=== PATIENT | female | born 1995 | race Caucasian/White ===

== ENCOUNTER 2020-12-31 16:51 | Emergency (ER) | payer OTHER, SELFPAY ==
--- NOTE | ~2020-12-31 | CT_ITS ---
EXAMINATION: CT HEAD WITHOUT CONTRAST CLINICAL INFORMATION: Weakness. COMPARISON: None TECHNIQUE: Contiguous axial imaging was performed from the skull base to vertex without intravenous administration of contrast. Coronal and sagittal reformatted images are performed at CT scanner This CT examination was performed using dose optimization techniques as appropriate, variously including the following: *Automated exposure control *Adjustment of mA and/or kV according to patient size (this includes techniques or standardized protocols for targeted exams where dose is matched to indication/reason for exam; i.e. extremities or head) *Use of iterative reconstruction technique DLP: 605 mGy-cm FINDINGS: There is no evidence of acute intracranial hemorrhage or territorial infarction. No abnormal mass effect or midline shift is seen. [place] to white matter differentiation is well preserved. No extra-axial fluid collections are identified. The ventricles are normal in size. There is no abnormal attenuation within the brain parenchyma. The osseous structures and soft tissues are normal. The mastoid air cells and visualized portions of the paranasal sinuses are well aerated. CT/CT head/brain wo con IMPRESSION: No acute intracranial pathology.
[2020-12-31 18:48] VITALS: BP 108/69; PULSE 89; RESP 18; TEMP 37.3; O2SAT 98
[2020-12-31 18:50] LABS: MANUAL DIFF FLAG NO
[2020-12-31 18:51] LABS: Basophils Percent Auto 0.3 % (0-2); Eosinophils Absolute Auto 0.1 X10*3/uL (0.0-0.4); Eosinophils Percent Auto 1.4 % (0-4); Hematocrit 37.9 % (37-47); Hemoglobin 12.3 g/dl (12.0-16.0); Imm Gran Abs Auto 0.02 X10*3/uL (0.00-0.03); Imm Gran Pct Auto 0.2 % (0.0-0.4); Lymphocytes Absolute Auto 2.3 X10*3/uL (1.2-4.9); Lymphocytes Percent Auto 24.8 % (20-40); Mean Corpuscular HGB Conc 32.5 g/dl (31.0-35.0); Mean Corpuscular Hemoglobin 27.5 pg (27.0-33.0); Mean Corpuscular Volume 84.6 fL (80-98); Mean Platelet Volume 10.3 fL (9.4-12.3); Monocytes Absolute Auto 0.9 X10*3/uL (0.1-1.2); Monocytes Percent Auto 9.4 % (2-11); Neutrophils Percent Auto 63.9 % (45-73); Platelet Count 233 X10*3/uL (160-400); Red Blood Count 4.48 X10*6/uL (4.20-5.50); Red Cell Distribution Width 12.9 % (11.0-16.0); White Blood Count 9.3 X10*3/uL (4.8-10.8)
[2020-12-31 19:10] LABS: Alanine Aminotransferase 9 U/L (0-31); Albumin Level 4.4 g/dL (3.5-5.0); Alkaline Phosphatase 76 U/L (39-117); Anion Gap 11 (12-20); Aspartate Amino Transferase 15 U/L (5-31); Bilirubin Total 0.3 mg/dL (0.0-1.0); Blood Urea Nitrogen 12 mg/dL (9-16); Calcium 9.5 mg/dL (8.4-10.2); Carbon Dioxide 26 mmol/L (22-29); Chloride 108 mmol/L (96-108); Estimated Glomerular Filt Rate > 60; Glucose Random 75 mg/dL (60-115); Potassium 4.2 mmol/L (3.3-5.1); Sodium 141 mmol/L (135-145); Total Protein 7.2 g/dL (6.5-8.0)
[2020-12-31 20:19] VITALS: BP 104/74; PULSE 85; RESP 16; TEMP 36.7; O2SAT 97; BMI 30.1
[2020-12-31 20:44] LABS: Appearance Urine CLEAR; Color Urine YELLOW; Glucose Urine UA NEG (NEG); Leukocyte Esterase Urine NEG (NEG); Nitrite Urine NEG (NEG); Urine Blood NEG (NEG); Urine Ketones NEG (NEG); Urine Protein NEG (NEG-TRACE)
[2020-12-31 20:46] LABS: UPreg QC Valid YES; Urine Pregnancy NEGATIVE (NEGATIVE)
[2020-12-31 21:26] VITALS: BP 112/71; PULSE 81; RESP 16; TEMP 36.4; O2SAT 98
--- NOTE | 2020-12-31 21:29 | ED.WEAKNESS ---
HPI - Weakness General Chief complaint: Weakness Stated complaint: Weakness to right side/Double vision Time Seen by Provider: 12/31/20 21:27 Source: patient Mode of arrival: ambulatory Limitations: no limitations History of Present Illness HPI Narrative: 25-year-old female presents with weakness, states that she feels like she was hit by a truck. Reports that she was worked up at [facility] last night with negative results, and given of diagnosis of a viral illness. Patient presents for worsening weakness. MD Complaint: generalized weakness Onset (ago): day(s) (3) Duration: constant Location: generalized Severity: similar to previous episodes Severity scale (1-10): 7 Quality: tingling and aching Relieving factors: none Exacerbating factors: movement and exertion Associated symptoms: fever/chills Related Data Allergies Allergy/AdvReac Type Severity Reaction Status Date / Time No Known Allergies Allergy Verified 12/31/20 20:19 Review of Systems Review of Systems: Constitutional: No Fever, No Chills ENT/Mouth: No Ear Pain, No Hoarseness, No sore throat Eyes: No Eye Pain, No Swelling, No Redness, No Foreign Body Cardiovascular: No Chest Pain, No SOB Respiratory: No Cough, No Dyspnea Gastrointestinal: Positive Nausea, No Vomiting, No Diarrhea, No abdominal Pain Genitourinary: No Dysuria, No Hematuria Musculoskeletal: No joint pain, No Myalgias, No Joint Swelling Skin: No Skin lacerations, No rash Neuro: Positive Weakness, No Numbness, No Paresthesias, No Loss of Consciousness, No Dizziness, No Headache Psych: No Anxiety/Panic, No Depression Heme/Lymph: no easy bruising, no Lymphadenopathy Endocrine: No Polyuria, No Polydipsia Yes all other systems are reviewed and are negative [facility] Past Medical History Attestation statement: The following information was validated with the patient. Source: old records reviewed Medical History Asthma PFO (patent foramen ovale) Social History Social History Patient Tobacco Use Status: Former Tobacco user Smoked in Last 30 Days: Yes Use of substances other than those prescribed or required for medical reasons: No Advance Directives: No Advance Directives Information Provided: No Physical Exam Vital Signs: Vital Signs: Last Vital Signs Temp 97.5 F 12/31/20 21:26 Pulse 81 12/31/20 21:26 Resp 16 12/31/20 21:26 BP 112/71 12/31/20 21:26 Pulse Ox 98 12/31/20 21:26 Body Mass Index 30.1 Appearance: Alert. Oriented X3. No acute distress. Eyes: Pupils equal, round and reactive to light. Sclera nonicteric. ENT: Pharynx normal. Moist mucous membranes. Neck: Normal inspection. Neck supple. CVS: Normal heart rate and rhythm. Pulses normal. Respiratory: No respiratory distress. Breath sounds normal. Abdomen: Soft and nontender. Skin: Skin warm and dry. Normal skin color. Normal skin turgor. Extremities: No lower extremity edema. Strength 5/5 to all extremities. Gait well balanced well coordinated. Neuro: No motor deficit. No sensory deficit. Cranial nerves 2-12 intact. Course Course Course Narrative: 25-year-old female presents with multiple complaints. States that she had a full workup at an [facility] yesterday with negative findings. States that she feels worse, feels like she was hit by a truck in her weakness is increased. She states that she does not have any feeling of illness, and would like further investigation into her weakness. Detailed description regarding radiation exposure, patient is still insistent upon further testing. Lab values drawn while patient was in the emergency department waiting room. All are negative. Records obtained from [facility]. Lab values reviewed, all within normal limits. No acute findings documented in their workup. 10:[address] scan negative for acute findings. Discussed with patient, patient should follow-up with primary care provider for further workup. Patient verbalized understanding of and agrees plan of care discharge home. MDM - Weakness Differential Diagnosis Differential diagnosis: Likely UTI, anemia, hypoglycemia, rhabdomyolysis and dehydration Medical Records Attestation: I reviewed the patient's medical records. Lab Data Attestation: I reviewed the patient's lab results. Result diagrams: 12/31/20 18:45 12/31/20 18:45 Labs: Lab Results 12/31/20 12/31/20 12/31/20 Range/Units 18:45 18:45 20:31 WBC 9.3 (4.8-10.8) X10*3/uL RBC 4.48 (4.20-5.50) X10*6/uL Hgb 12.3 (12.0-16.0) g/dl Hct 37.9 (37-47) % MCV 84.6 (80-98) fL MCH 27.5 (27.0-33.0) pg MCHC 32.5 (31.0-35.0) g/dl RDW 12.9 (11.0-16.0) % Plt Count 233 (160-400) X10*3/uL MPV 10.3 (9.4-12.3) fL Immature Gran % (Auto) 0.2 (0.0-0.4) % Neut % (Auto) 63.9 (45-73) % Lymph % (Auto) 24.8 (20-40) % [place] % (Auto) 9.4 (2-11) % Eos % (Auto) 1.4 (0-4) % Baso % (Auto) 0.3 (0-2) % Lymph # (Auto) 2.3 (1.2-4.9) X10*3/uL [place] # (Auto) 0.9 (0.1-1.2) X10*3/uL Eos # (Auto) 0.1 (0.0-0.4) X10*3/uL Baso # (Auto) 0.0 (0.0-0.2) X10*3/uL Abs Immat Gran (auto) 0.02 (0.00-0.03) X10*3/uL Absolute Neuts (auto) 6.0 (2.0-8.3) X10*3/uL Absolute Nucleated RBC 0.000 (0.0-0.012) X10*3/uL Nucleated RBC % (auto) 0.0 (0.0-0.2) /100WBC Sodium 141 (135-145) mmol/L Potassium 4.2 (3.3-5.1) mmol/L Chloride 108 (96-108) mmol/L Carbon Dioxide 26 (22-29) mmol/L Anion Gap 11 L (12-20) BUN 12 (9-16) mg/dL Creatinine 0.78 (0.5-1.4) mg/dL Estim Creat Clear Calc TNP Estimated GFR > 60 Random Glucose 75 (60-115) mg/dL Calcium 9.5 (8.4-10.2) mg/dL Total Bilirubin 0.3 (0.0-1.0) mg/dL AST 15 (5-31) U/L ALT 9 (0-31) U/L Alkaline Phosphatase 76 (39-117) U/L Total Protein 7.2 (6.5-8.0) g/dL Albumin 4.4 (3.5-5.0) g/dL Urine Color Urine Appearance Urine pH (5.0-8.0) Ur Specific [place] (1.005-1.025) Urine Protein (NEG-TRACE) MG/DL Urine Glucose (UA) (NEG) MG/DL Urine Ketones (NEG) MG/DL Urine Blood (NEG) Urine Nitrite (NEG) Ur Leukocyte Esterase (NEG) Urine Test (NEGATIVE) COVID-19 (MARILYNN) Negative (Negative) COVID-19 Clin Com See Note 12/31/20 12/31/20 Range/Units 20:35 20:35 WBC (4.8-10.8) X10*3/uL RBC (4.20-5.50) X10*6/uL Hgb (12.0-16.0) g/dl Hct (37-47) % MCV (80-98) fL MCH (27.0-33.0) pg MCHC (31.0-35.0) g/dl RDW (11.0-16.0) % Plt Count (160-400) X10*3/uL MPV (9.4-12.3) fL Immature Gran % (Auto) (0.0-0.4) % Neut % (Auto) (45-73) % Lymph % (Auto) (20-40) % [place] % (Auto) (2-11) % Eos % (Auto) (0-4) % Baso % (Auto) (0-2) % Lymph # (Auto) (1.2-4.9) X10*3/uL [place] # (Auto) (0.1-1.2) X10*3/uL Eos # (Auto) (0.0-0.4) X10*3/uL Baso # (Auto) (0.0-0.2) X10*3/uL Abs Immat Gran (auto) (0.00-0.03) X10*3/uL Absolute Neuts (auto) (2.0-8.3) X10*3/uL Absolute Nucleated RBC (0.0-0.012) X10*3/uL Nucleated RBC % (auto) (0.0-0.2) /100WBC Sodium (135-145) mmol/L Potassium (3.3-5.1) mmol/L Chloride (96-108) mmol/L Carbon Dioxide (22-29) mmol/L Anion Gap (12-20) BUN (9-16) mg/dL Creatinine (0.5-1.4) mg/dL Estim Creat Clear Calc Estimated GFR Random Glucose (60-115) mg/dL Calcium (8.4-10.2) mg/dL Total Bilirubin (0.0-1.0) mg/dL AST (5-31) U/L ALT (0-31) U/L Alkaline Phosphatase (39-117) U/L Total Protein (6.5-8.0) g/dL Albumin (3.5-5.0) g/dL Urine Color YELLOW Urine Appearance CLEAR Urine pH 6.0 (5.0-8.0) Ur Specific [place] 1.010 (1.005-1.025) Urine Protein NEG (NEG-TRACE) MG/DL Urine Glucose (UA) NEG (NEG) MG/DL Urine Ketones NEG (NEG) MG/DL Urine Blood NEG (NEG) Urine Nitrite NEG (NEG) Ur Leukocyte Esterase NEG (NEG) Urine Test NEGATIVE (NEGATIVE) COVID-19 (MARILYNN) (Negative) COVID-19 Clin Com Imaging Data CT head: Attestation: I personally reviewed and interpreted this imaging study as follows: Radiologist's impression: DLP: 605 mGy-cm FINDINGS: There is no evidence of acute intracranial hemorrhage or territorial infarction. No abnormal mass effect or midline shift is seen. [place] to white matter differentiation is well preserved. No extra-axial fluid collections are identified. The ventricles are normal in size. There is no abnormal attenuation within the brain parenchyma. The osseous structures and soft tissues are normal. The mastoid air cells and visualized portions of the paranasal sinuses are well aerated. ? CT/CT head/brain wo con IMPRESSION: No acute intracranial pathology. Discharge Plan Discharge Clinical Impression: Weakness Patient Disposition: Home, Self-Care Instructions: Weakness (ED) Additional Instructions: You were evaluated for weakness. Lab values are all normal. Urinalysis is negative for acute findings. CT scan of head is negative for acute findings requiring emergent intervention. We could not find a reason for your weakness. Please follow-up with your primary care physician for further workup. You may consider following up with Neurology if symptoms persist. I referred you to Dr. Benites. Thank you for choosing this emergency department for evaluation. Please follow-up with primary care physician as needed. Return to the emergency department for any new, concerning, or worsening symptoms. Referrals: Kelli Benites MD [Physician] - 2 days (Weakness)
[2020-12-31 21:41] LABS: COVID-19 Test Negative (Negative)
== END 2020-12-31 23:06 | disposition home or self-care (01) ==
PROVIDERS: Emergency Provider Internal Medicine; PCP Internal Medicine
DX: R53.1 Weakness (principal); Z20.822 Contact with and (suspected) exposure to COVID-19
CPT/HCPCS: 36415; 70450; 80053; 81003; 81025; 85025; 87635; 99284

== ENCOUNTER 2021-06-22 16:50 | Emergency (ER) | payer OTHER, SELFPAY ==
--- NOTE | ~2021-06-22 | XR_ITS ---
EXAMINATION: XR CHEST CLINICAL INFORMATION: Chest pain COMPARISON: 02/12/2020 TECHNIQUE: Frontal view of the chest was obtained. FINDINGS: No significant abnormality is noted involving the heart, lungs, mediastinum, bony thorax or soft tissues. XR/XR chest 1V IMPRESSION: Unremarkable examination.
--- NOTE | 2021-06-22 17:04 | ECG_ITS ---
Test Reason : CHEST PAIN Blood Pressure : / mmHG Vent. Rate : 080 BPM Atrial Rate : 080 BPM P-R Int : 136 ms QRS Dur : 080 ms QT Int : 364 ms P-R-T Axes : 072 040 057 degrees QTc Int : 419 ms Normal sinus rhythm Normal ECG No previous ECGs available Referred By: Generic ED Physician Electronically Signed By:SEAN HAGAN MD
[2021-06-22 17:06] VITALS: BP 112/72; PULSE 83; RESP 15; TEMP 36.4; O2SAT 95
[2021-06-22 17:19] LABS: MANUAL DIFF FLAG NO
[2021-06-22 17:22] LABS: Basophils Percent Auto 0.3 % (0-2); Eosinophils Absolute Auto 0.1 X10*3/uL (0.0-0.4); Hematocrit 38.4 % (37.0-47.0); Hemoglobin 12.5 g/dl (12.0-16.0); Imm Gran Abs Auto 0.04 X10*3/uL (0.00-0.03); Imm Gran Pct Auto 0.7 % (0.0-0.4); Lymphocytes Absolute Auto 1.5 X10*3/uL (1.2-4.9); Lymphocytes Percent Auto 26.3 % (20-40); Mean Corpuscular HGB Conc 32.6 g/dl (31.0-35.0); Mean Corpuscular Hemoglobin 27.1 pg (27.0-33.0); Mean Corpuscular Volume 83.1 fL (80.0-98.0); Mean Platelet Volume 10.2 fL (9.4-12.3); Monocytes Absolute Auto 0.4 X10*3/uL (0.1-1.2); Monocytes Percent Auto 7.2 % (2-11); Neutrophils Absolute Auto 3.8 x10*3/uL (2.0-8.3); Neutrophils Percent Auto 64.5 % (45-73); Platelet Count 211 X10*3/uL (160-400); Red Blood Count 4.62 X10*6/uL (4.20-5.50); Red Cell Distribution Width 12.7 % (11.0-16.0); White Blood Count 5.9 X10*3/uL (4.8-10.8)
[2021-06-22 17:45] LABS: Anion Gap 13 (12-20); Blood Urea Nitrogen 10 mg/dL (9-16); Calcium 10.2 mg/dL (8.4-10.2); Carbon Dioxide 24 mmol/L (22-29); Chloride 106 mmol/L (96-108); Creatinine Clr Calc Pharmacy 115.7; Estimated Glomerular Filt Rate > 60; Glucose Random 96 mg/dL (60-115); Potassium 4.2 mmol/L (3.3-5.1); Sodium 139 mmol/L (135-145)
[2021-06-22 17:53] LABS: Troponin-I High Sensitivity < 3.5 ng/L (<3.5-17.0)
[2021-06-22 20:14] VITALS: BP 113/72; PULSE 88; RESP 17; TEMP 36.6; O2SAT 99
[2021-06-22 21:37] VITALS: BP 107/75; PULSE 90; RESP 17; TEMP 36.6; O2SAT 98
--- NOTE | 2021-06-22 23:15 | ED.CHESTPAIN ---
HPI - Chest Pain General Chief Complaint: Chest Pain Stated Complaint: chest and arm pain Time Seen by Provider: 06/22/21 23:15 Source: patient Mode of arrival: ambulatory Limitations: no limitations History of Present Illness MD complaint: chest pain Pertinent past history: other (chest pain and palpitations for a few months) Onset (ago): day(s) (2) Timing of current episode: episodic Prior episodes: Yes Onset: during rest and during exertion Pain location: substernal Pain radiation: neck Severity: moderate Quality: heaviness Relieving factors: nothing Exacerbating factors: nothing Context: other (similar episodes) Associated symptoms: palpitations Treatment prior to arrival: none and other (also noted bruise in L AC area following blood draw at [facility]) Related Data Allergies Allergy/AdvReac Type Severity Reaction Status Date / Time vancomycin Allergy Swelling Verified 06/22/21 17:09 Review of Systems Review of Systems: Constitutional : No Weight loss, No Fever, No Chills ENT/Mouth : No sore throat, No Rhinorrhea Eyes: No Eye Pain, No Swelling Cardiovascular : pos Chest Pain, no SOB, no Dyspnea on Exertion, No Orthopnea, No Edema, pos Palpitations Respiratory : No Cough, No Sputum Gastrointestinal : no Nausea, No Vomiting, No Diarrhea, No abdominal Pain, No Hematochezia, No Melena Genitourinary : No Dysuria, No Urinary Frequency Musculoskeletal : No joint pain, No Myalgias, No Joint Swelling Skin : No Skin Lesions, No rash Neuro : No Weakness, No Numbness, No Dizziness, No Headache Psych : No Anxiety/Panic, No Depression Heme/Lymph: No Bruising, No Lymphadenopathy Endocrine : No Polyuria, No Polydipsia All other systems reviewed and are negative [facility] Past Medical History Attestation statement: The following information was validated with the patient. Medical History Asthma PFO (patent foramen ovale) Social History Social History Patient Tobacco Use Status: Former Tobacco user Advance Directives: No Physical Exam Vital Signs: Vital Signs: Last Vital Signs Temp 98 F 06/22/21 21:37 Pulse 90 06/22/21 21:37 Resp 17 06/22/21 21:37 BP 107/75 06/22/21 21:37 Pulse Ox 98 04/07/22 21:37 BMI result Body Mass Index 30.0 Appearance: Alert. Oriented X3. No acute distress. Eyes: Pupils equal, round and reactive to light. ENT: Pharynx normal. Neck: Normal inspection. Neck supple. CVS: Normal heart rate and rhythm. Pulses normal. Respiratory: No respiratory distress. Breath sounds normal. Abdomen: Soft and nontender. bounding symmetric pulses femoral Skin: Skin warm and dry. Normal skin color. Normal skin turgor. Extremities: No lower extremity edema. No calf ttp LUE bruise noted superficial with small not in AC area - LUE is not swollen at all and there is no suggestion of clinical DVT Neuro: Oriented X 3. No motor deficit. No sensory deficit. MDM - Chest Pain MDM Narrative Medical decision making narrative: 25 yo female with hx of palpitations and bouts of chest pain in the past seen by cardiology - notes 2 days of chest pain on and off went to her neck, she is PERC negative, has no ACS risk factors - EKG and trop negative with 2 days of symptoms no recent viral syndrome, her femoral pusles are intact doubt dissection. At this time can be DC home to cardiology follow up doubt ACS, pericarditis/myocarditis. Lab Data Result diagrams: 06/22/21 17:13 06/22/21 17:13 Labs: Lab Results 06/22/21 06/22/21 06/22/21 Range/Units 17:13 17:13 17:13 WBC 5.9 (4.8-10.8) X10*3/uL RBC 4.62 (4.20-5.50) X10*6/uL Hgb 12.5 (12.0-16.0) g/dl Hct 38.4 (37.0-47.0) % MCV 83.1 (80.0-98.0) fL MCH 27.1 (27.0-33.0) pg MCHC 32.6 (31.0-35.0) g/dl RDW 12.7 (11.0-16.0) % Plt Count 211 (160-400) X10*3/uL MPV 10.2 (9.4-12.3) fL Immature Gran % (Auto) 0.7 H (0.0-0.4) % Neut % (Auto) 64.5 (45-73) % Lymph % (Auto) 26.3 (20-40) % [place] % (Auto) 7.2 (2-11) % Eos % (Auto) 1.0 (0-4) % Baso % (Auto) 0.3 (0-2) % Lymph # (Auto) 1.5 (1.2-4.9) X10*3/uL [place] # (Auto) 0.4 (0.1-1.2) X10*3/uL Eos # (Auto) 0.1 (0.0-0.4) X10*3/uL Baso # (Auto) 0.0 (0.0-0.2) X10*3/uL Abs Immat Gran (auto) 0.04 H (0.00-0.03) X10*3/uL Absolute Neuts (auto) 3.8 (2.0-8.3) x10*3/uL Absolute Nucleated RBC 0.000 (0.0-0.012) X10*3/uL Nucleated RBC % (auto) 0.0 (0.0-0.2) /100WBC Sodium 139 (135-145) mmol/L Potassium 4.2 (3.3-5.1) mmol/L Chloride 106 (96-108) mmol/L Carbon Dioxide 24 (22-29) mmol/L Anion Gap 13 (12-20) BUN 10 (9-16) mg/dL Creatinine 0.73 (0.5-1.4) mg/dL Estim Creat Clear Calc 115.7 Estimated GFR > 60 Random Glucose 96 (60-115) mg/dL Calcium 10.2 D (8.4-10.2) mg/dL Troponin I High Sens < 3.5 (<3.5-17.0) ng/L ECG Data ECG #1: Attestation: I personally reviewed and interpreted this ECG as follows: ECG interpretation date: 06/22/21 ECG interpretation time: 23:20 Interpretation: Rate: 80 Rhythm: NSR [place]: normal Normal P waves. Normal WILI. Normal QRS complex. ST T wave : normal no VICTORINO qTC: normal prior studies: no acute ischemia The study has been interpreted contemporaneously by me. . 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
[2021-06-22 23:55] LABS: UPreg QC Valid YES; Urine Pregnancy NEGATIVE (NEGATIVE)
[2021-06-23] MEDS: Acetaminophen 325 MG TABLET 650 MG PO (00:16)
== END 2021-06-23 00:18 | disposition home or self-care (01) ==
PROVIDERS: Emergency Provider Emergency Medicine
DX: R07.9 Chest pain, unspecified (principal)
CPT/HCPCS: 36415; 71045; 80048; 81025; 84484; 85025; 93005; 99284

== ENCOUNTER 2021-07-12 12:04 | Outpatient (REF) | payer OTHER, SELFPAY ==
[2021-07-12 14:40] LABS: Erythrocyte Sedimentation Rate 10 MM/HR (0-20)
[2021-07-12 16:31] LABS: Syphilis Screen Nonreactive (Nonreactive)
[2021-07-14 00:51] LABS: Lyme Abs Screen <0.90 index
[2021-07-14 13:26] LABS: Anti Nuclear Antibody Screen NEGATIVE (NEGATIVE)
== END 2021-07-12 12:05 | disposition home or self-care (01) ==
LOC: HO.LAB 12:04
PROVIDERS: Visit Provider Psychiatry & Neurology Neurology
DX: G93.40 Encephalopathy, unspecified (principal)
CPT/HCPCS: 36415; 85652; 86038; 86039; 86617; 86618; 86780

== ENCOUNTER 2021-07-19 16:06 | Outpatient (REF) | payer OTHER, SELFPAY ==
--- NOTE | ~2021-07-19 | MR_ITS ---
MR BRAIN WITHOUT AND WITH CONTRAST CLINICAL INFORMATION: Encephalopathy COMPARISON: Head CT 01/01/2020 TECHNIQUE: Multiplanar, multisequence MRI of the brain was obtained before and after the intravenous administration of 8 mL Gadavist. FINDINGS: There is no pathologic intracranial enhancement. No parenchymal signal abnormality. There is no hydrocephalus, extra-axial surface collection, or herniation. The major flow voids at the skull base are preserved. There is no acute infarct on diffusion-weighted imaging. There is no intracranial hemorrhage on the gradient recalled echo acquisition. The midline structures are normal. The cerebellar tonsils are normally positioned. The cerebellum and brainstem are normal. The craniocervical junction is normal. Osseous marrow signal intensity is homogenous. The visualized soft tissues are unremarkable. MR/MR head/brain wo/w con IMPRESSION: Unremarkable MRI of the brain.
== END 2021-07-19 16:07 | disposition home or self-care (01) ==
LOC: HO.MRI 16:06
PROVIDERS: Visit Provider Psychiatry & Neurology Neurology
DX: G93.40 Encephalopathy, unspecified (principal)
CPT/HCPCS: 70553; A9585

== ENCOUNTER 2021-07-22 16:53 | Emergency (ER) | payer OTHER, SELFPAY ==
--- NOTE | 2021-07-22 | ECG_ITS ---
Test Reason : CHEST PAIN Blood Pressure : / mmHG Vent. Rate : 081 BPM Atrial Rate : 081 BPM P-R Int : 140 ms QRS Dur : 082 ms QT Int : 374 ms P-R-T Axes : 064 040 057 degrees QTc Int : 434 ms Normal sinus rhythm Normal ECG When compared with ECG of 22-JUN-2021 16:59, No significant change was found Referred By: Erinn Escobar Electronically Signed By:Jared Whitt
--- NOTE | ~2021-07-22 | XR_ITS ---
EXAMINATION: XR CHEST CLINICAL INFORMATION: Chest pain COMPARISON: None TECHNIQUE: Frontal view of the chest was obtained. FINDINGS: No significant abnormality is noted involving the heart, lungs, mediastinum, bony thorax or soft tissues. XR/XR chest 1V IMPRESSION: Unremarkable examination.
[2021-07-22 17:12] VITALS: BP 116/79; PULSE 81; RESP 18; TEMP 36.9; O2SAT 100; BMI 28.8
[2021-07-22 17:33] LABS: MANUAL DIFF FLAG NO
[2021-07-22 17:35] LABS: Appearance Urine CLEAR; Color Urine YELLOW; Glucose Urine UA NEG (NEG); Leukocyte Esterase Urine NEG (NEG); Nitrite Urine NEG (NEG); Specific Gravity - Urine 1.025 (1.005-1.025); Urine Blood NEG (NEG); Urine Ketones 15 MG/DL (NEG); Urine Protein NEG (NEG-TRACE)
[2021-07-22 17:40] LABS: UPreg QC Valid YES; Urine Pregnancy NEGATIVE (NEGATIVE)
[2021-07-22 17:45] LABS: Basophils Percent Auto 0.3 % (0-2); Eosinophils Absolute Auto 0.1 X10*3/uL (0.0-0.4); Eosinophils Percent Auto 0.8 % (0-4); Hematocrit 37.6 % (37.0-47.0); Hemoglobin 12.2 g/dl (12.0-16.0); Imm Gran Abs Auto 0.01 X10*3/uL (0.00-0.03); Imm Gran Pct Auto 0.2 % (0.0-0.4); Lymphocytes Absolute Auto 1.7 X10*3/uL (1.2-4.9); Lymphocytes Percent Auto 27.9 % (20-40); Mean Corpuscular HGB Conc 32.4 g/dl (31.0-35.0); Mean Corpuscular Volume 83.2 fL (80.0-98.0); Mean Platelet Volume 10.2 fL (9.4-12.3); Monocytes Absolute Auto 0.4 X10*3/uL (0.1-1.2); Monocytes Percent Auto 7.1 % (2-11); Neutrophils Percent Auto 63.7 % (45-73); Platelet Count 240 X10*3/uL (160-400); Red Blood Count 4.52 X10*6/uL (4.20-5.50); Red Cell Distribution Width 13.2 % (11.0-16.0); White Blood Count 6.2 X10*3/uL (4.8-10.8)
[2021-07-22 17:49] LABS: Anion Gap 13 (12-20); Blood Urea Nitrogen 8 mg/dL (9-16); Calcium 9.8 mg/dL (8.4-10.2); Carbon Dioxide 22 mmol/L (22-29); Chloride 108 mmol/L (96-108); Estimated Glomerular Filt Rate > 60; Glucose Random 94 mg/dL (60-115); Potassium 4.2 mmol/L (3.3-5.1); Sodium 139 mmol/L (135-145)
[2021-07-22 17:55] LABS: Troponin-I High Sensitivity < 3.5 ng/L (<3.5-17.0)
--- NOTE | 2021-07-22 20:58 | ED.CHESTPAIN ---
HPI - Chest Pain General Chief Complaint: Chest Pain Stated Complaint: chest pain Time Seen by Provider: 07/22/21 20:58 Source: patient Mode of arrival: ambulatory Limitations: no limitations History of Present Illness HPI narrative: Patient history of palpitation off and on follow-up with executive relations specialist plan to have loop monitor and echo for possible POTS. Comes here as while monitoring her heart rate at home at home device which dad as AFib with ventricular rate of 96 beats per minute on closer evaluation that was an error in lot of baseline abnormalities and is a sinus rhythm also patient had multiple complaints facial numbness when the systolic blood pressure goes higher than 115 and has palpitation with heart rate less than 100 and chest pain Related Data Allergies Allergy/AdvReac Type Severity Reaction Status Date / Time vancomycin Allergy Swelling Verified 07/22/21 17:12 Review of Systems Review of Systems: Yes all other systems are reviewed and are negative [facility] Past Medical History Medical History Asthma PFO (patent foramen ovale) Social History Social History Patient Tobacco Use Status: Former Tobacco user Advance Directives: No Advance Directives Information Provided: No Patient : No Physical Exam Vital Signs: Vital Signs: Last Vital Signs Temp 98.4 F 07/22/21 17:12 Pulse 94 07/22/21 21:18 Resp 14 07/22/21 21:11 BP 112/82 07/22/21 21:18 Pulse Ox 98 07/22/21 21:11 BMI result Body Mass Index 28.8 Appearance: Alert. Oriented X3. No acute distress. Eyes: PERRLA, ENT: Pharynx normal. Oral Mucosa moist Neck: Normal inspection. Neck supple. CVS: Normal heart rate and rhythm. Pulses normal. Respiratory: No respiratory distress. Equal air entry bilateral, no wheezing/rales/rhonchi Abdomen: Soft and nontender. Bowel sounds are present, Skin: Skin warm and dry. Normal skin color. Normal skin turgor. Extremities: No lower extremity edema. No calf tenderness Neuro: Oriented X 3. No motor deficit. No sensory deficit.No cerebellar signs , cranial nerves II-XII intact MDM - Chest Pain MDM Narrative Medical decision making narrative: During stay in the ER patient had normal sinus rhythm no arrhythmias noticed patient has history of POTS possible on metoprolol advised to follow with executive relations specialist patient scheduled for echo and loop monitoring next month Lab Data Attestation: I reviewed the patient's lab results. Result diagrams: 07/22/21 17:29 07/22/21 17:29 Labs: Lab Results 07/22/21 07/22/21 07/22/21 Range/Units 17:29 17:29 17:29 WBC 6.2 (4.8-10.8) X10*3/uL RBC 4.52 (4.20-5.50) X10*6/uL Hgb 12.2 (12.0-16.0) g/dl Hct 37.6 (37.0-47.0) % MCV 83.2 (80.0-98.0) fL MCH 27.0 (27.0-33.0) pg MCHC 32.4 (31.0-35.0) g/dl RDW 13.2 (11.0-16.0) % Plt Count 240 (160-400) X10*3/uL MPV 10.2 (9.4-12.3) fL Immature Gran % (Auto) 0.2 (0.0-0.4) % Neut % (Auto) 63.7 (45-73) % Lymph % (Auto) 27.9 (20-40) % [place] % (Auto) 7.1 (2-11) % Eos % (Auto) 0.8 (0-4) % Baso % (Auto) 0.3 (0-2) % Lymph # (Auto) 1.7 (1.2-4.9) X10*3/uL [place] # (Auto) 0.4 (0.1-1.2) X10*3/uL Eos # (Auto) 0.1 (0.0-0.4) X10*3/uL Baso # (Auto) 0.0 (0.0-0.2) X10*3/uL Abs Immat Gran (auto) 0.01 (0.00-0.03) X10*3/uL Absolute Neuts (auto) 4.0 (2.0-8.3) x10*3/uL Absolute Nucleated RBC 0.000 (0.0-0.012) X10*3/uL Nucleated RBC % (auto) 0.0 (0.0-0.2) /100WBC Sodium 139 (135-145) mmol/L Potassium 4.2 (3.3-5.1) mmol/L Chloride 108 (96-108) mmol/L Carbon Dioxide 22 (22-29) mmol/L Anion Gap 13 (12-20) BUN 8 L (9-16) mg/dL Creatinine 0.82 (0.5-1.4) mg/dL Estim Creat Clear Calc 101.0 Estimated GFR > 60 Random Glucose 94 (60-115) mg/dL Calcium 9.8 (8.4-10.2) mg/dL Troponin I High Sens < 3.5 (<3.5-17.0) ng/L Urine Color Urine Appearance Urine pH (5.0-8.0) Ur Specific [place] (1.005-1.025) Urine Protein (NEG-TRACE) MG/DL Urine Glucose (UA) (NEG) MG/DL Urine Ketones (NEG) MG/DL Urine Blood (NEG) Urine Nitrite (NEG) Ur Leukocyte Esterase (NEG) Urine Test (NEGATIVE) 07/22/21 07/22/21 Range/Units 17:29 17:29 WBC (4.8-10.8) X10*3/uL RBC (4.20-5.50) X10*6/uL Hgb (12.0-16.0) g/dl Hct (37.0-47.0) % MCV (80.0-98.0) fL MCH (27.0-33.0) pg MCHC (31.0-35.0) g/dl RDW (11.0-16.0) % Plt Count (160-400) X10*3/uL MPV (9.4-12.3) fL Immature Gran % (Auto) (0.0-0.4) % Neut % (Auto) (45-73) % Lymph % (Auto) (20-40) % [place] % (Auto) (2-11) % Eos % (Auto) (0-4) % Baso % (Auto) (0-2) % Lymph # (Auto) (1.2-4.9) X10*3/uL [place] # (Auto) (0.1-1.2) X10*3/uL Eos # (Auto) (0.0-0.4) X10*3/uL Baso # (Auto) (0.0-0.2) X10*3/uL Abs Immat Gran (auto) (0.00-0.03) X10*3/uL Absolute Neuts (auto) (2.0-8.3) x10*3/uL Absolute Nucleated RBC (0.0-0.012) X10*3/uL Nucleated RBC % (auto) (0.0-0.2) /100WBC Sodium (135-145) mmol/L Potassium (3.3-5.1) mmol/L Chloride (96-108) mmol/L Carbon Dioxide (22-29) mmol/L Anion Gap (12-20) BUN (9-16) mg/dL Creatinine (0.5-1.4) mg/dL Estim Creat Clear Calc Estimated GFR Random Glucose (60-115) mg/dL Calcium (8.4-10.2) mg/dL Troponin I High Sens (<3.5-17.0) ng/L Urine Color YELLOW Urine Appearance CLEAR Urine pH 6.0 (5.0-8.0) Ur Specific [place] 1.025 (1.005-1.025) Urine Protein NEG (NEG-TRACE) MG/DL Urine Glucose (UA) NEG (NEG) MG/DL Urine Ketones 15 (NEG) MG/DL Urine Blood NEG (NEG) Urine Nitrite NEG (NEG) Ur Leukocyte Esterase NEG (NEG) Urine Test NEGATIVE (NEGATIVE) Discharge Plan Discharge Clinical Impression: Heart palpitations Patient Disposition: Home, Self-Care Instructions: Heart Palpitations (ED) Additional Instructions: Follow up with executive relations specialist as advised At this time you do not have any atrial fibrillation continue to take metoprolol as prescribe Interventions: ED Discharge Assessment Last Done: 07/22/21 21:46 Discharge Date/Time: 07/22/21 21:48
[2021-07-22 21:11] VITALS: BP 122/86; PULSE 79; RESP 14; O2SAT 98
[2021-07-22 21:16] VITALS: BP 114/76; PULSE 75
[2021-07-22 21:17] VITALS: BP 123/82; PULSE 83
[2021-07-22 21:18] VITALS: BP 112/82; PULSE 94
== END 2021-07-22 21:48 | disposition home or self-care (01) ==
PROVIDERS: Emergency Medicine Emergency Medical Services; Emergency Provider Internal Medicine
DX: R07.89 Other chest pain (principal); R00.2 Palpitations; Z87.891 Personal history of nicotine dependence; Z79.899 Other long term (current) drug therapy
CPT/HCPCS: 36415; 71045; 80048; 81003; 81025; 84484; 85025; 93005; 99284

== ENCOUNTER 2021-08-01 10:08 | Emergency (ER) | payer OTHER, SELFPAY ==
--- NOTE | 2021-08-01 | ECG_ITS ---
Test Reason : cp Blood Pressure : / mmHG Vent. Rate : 088 BPM Atrial Rate : 088 BPM P-R Int : 142 ms QRS Dur : 078 ms QT Int : 352 ms P-R-T Axes : 064 042 048 degrees QTc Int : 425 ms Normal sinus rhythm Normal ECG When compared with ECG of 22-JUL-2021 17:02, No significant change was found Referred By: Generic ED Physician Electronically Signed By:PINA LAWRENCE
--- NOTE | ~2021-08-01 | US_ITS ---
EXAMINATION: US VENOUS WITH DOPPLER UPPER EXTREMITY, LEFT CLINICAL INFORMATION: Pain and swelling COMPARISON: None TECHNIQUE: Ultrasound of the upper extremity is performed using compression sonography and color and pulse Doppler flow with assessment of augmentation of flow. There is also imaging and Doppler assessment of the jugular and subclavian veins. Spectral analysis with color-flow imaging is performed. FINDINGS: The left internal jugular, subclavian, axillary, brachial, basilic veins are patent. The left cephalic vein is not compressible. No color flow could be documented in the left cephalic vein. This may be due to small size. US/US venous duplex UE LT IMPRESSION: No DVT demonstrated in the left upper arm.
[2021-08-01 10:51] VITALS: BP 123/49; PULSE 100; RESP 18; TEMP 36.6; O2SAT 100; BMI 30.1
--- NOTE | 2021-08-01 12:40 | ED.EXTPRO ---
HPI - Extremity Problem General Chief complaint: Extremity Problem Stated complaint: l arm numbness quest of dvt Time Seen by Provider: 08/01/21 12:15 Source: patient Mode of arrival: ambulatory Limitations: no limitations History of Present Illness HPI Narrative: 25-year-old female who presents emergency department for evaluation of left arm pain, weakness, numbness and swelling. The patient states that she has a constant pain in her left arm from her shoulder down to her fingers, the pain is a throbbing/dull ache which waxes and wanes in intensity. The pain is 8/10 at its worst. She states that she has been feeling weakness and heaviness in her left arm for approximately 3-4 days. She also feels like her left arm is swollen compared to the right. She does have a tingling sensation in her fingers of the left hand which is intermittent. Patient also noted a small ?bump ?in her left biceps area. She states she has been taking Tylenol and ibuprofen with some relief of the pain but the pain still persists. She states that she does have chest tightness and she points to the center of her chest. This is intermittent and she has had this pain before in the past. She does feel short of breath and has dyspnea on exertion. She denied fever, chills, rhinorrhea, sore throat, cough. She does not take control pills. The patient is concerned that she might have a blood clot in her left upper extremity. She states she has a PFO which also concerns her. Patient was seen in the emergency department recently on 07/22/2021 for palpitations and on 06/22/2021 her chest pain palpitations. The patient does see picker and is being worked up for POTS syndrome and for palpitations. MD Complaint: extremity pain Onset (ago): week(s) (1) Pain Consistency: constant (Waxes and wanes in intensity) Location: left Severity scale (1-10): 8 Quality: dull (From) Radiation: other (From her left shoulder to her finger tips) Relieving factors: nothing Exacerbating factors: nothing Associated symptoms: chest pain and shortness of breath Related Data Allergies Allergy/AdvReac Type Severity Reaction Status Date / Time vancomycin Allergy Swelling Verified 08/01/21 10:51 Review of Systems Review of Systems: Yes all other systems are reviewed and are negative [facility] Past Medical History [facility] Narrative: Past medical history: Palpitations, sepsis secondary to kidney infection, IBS, PFO, asthma. Past surgical history: None. Social history: The patient is a former smoker, she quit 3 years prior. She smoked less than half pack of cigarettes per day x7 years. She denies alcohol and drug use. Medical History Asthma PFO (patent foramen ovale) Social History Social History Patient Tobacco Use Status: Former Tobacco user Use of substances other than those prescribed or required for medical reasons: No Advance Directives: No Advance Directives Information Provided: No Physical Exam Vital Signs: Vital Signs: Last Vital Signs Temp 97.9 F 08/01/21 10:51 Pulse 77 08/01/21 12:43 Resp 18 08/01/21 12:43 BP 102/47 L 08/01/21 12:43 Pulse Ox 100 08/01/21 12:43 BMI result Body Mass Index 30.1 Const: General: cooperative and no acute distress Orientation/consciousness: oriented to person and oriented to place Limitations: no limitations HEENT: Head: Yes normal to inspection, Yes normocephalic and Yes atraumatic Ears: external ears normal General nose exam: Normal external nose present Face and sinus: Yes normal facial exam Mouth: Normal oral and palatal mucosa present Throat: Yes posterior oropharynx normal Eyes: General: appearance normal, both eyes and all related structures Pupils: Equal, round and reactive pupils present Neck: Neck: Yes normal visual inspection, Yes no lymphadenopathy, Yes trachea midline and Yes supple Chest: Chest palpation & inspection: normal inspection of the chest and normal palpation of entire chest wall Resp: Effort & Inspection: normal respiratory effort and able to speak in complete sentences Auscultation: clear to auscultation bilaterally Cardio: Rate: regular rate Rhythm: regular rhythm Heart sounds: S1 normal heart sound present, S2 normal heart sound present and no murmurs GI: Inspection: Yes normal to inspection Palpation (GI): Soft to palpation, nontender and no guarding Auscultation: normal bowel sounds : General: Yes no CVA tenderness Back/Spine/Pelvis: Back: no CVA tenderness Skin: General skin exam: no rashes or lesions noted Neuro: General: oriented to person and oriented to place Cranial nerves: Yes CN's II-XII intact bilaterally and Yes Equal, round and reactive pupils present Cognition (Neuro): normal cognition Motor exam (neuro): 5/5 motor strength present throughout Extrem: Other: The patient does have a pea size hard mass palpable in her mood bicep which I believe is a calcified lymph node, her extremities are neurovascular intact, no asymmetry on inspection of the left upper extremity versus the right. Psych: Appearance: grossly normal Speech and movement: Normal speech and movement present Affect: normal affect Attitude: cooperative Thought process: Normal thought process present Thought content: Normal thought content present Course Course Course Narrative: 25-year-old female who presents emergency department for evaluation of left upper extremity pain, swelling, heaviness x1 week. Patient's vital signs did reveal slight elevation a pulse of 100 otherwise were unremarkable. The patient does have a hard, pea-sized mass in her mid biceps which I believe is calcified lymph node. The patient has no significant risk factors for DVT however I am concerned that she may have a DVT of her left upper extremity therefore a duplex ultrasound was ordered. 1435: Duplex ultrasound of the left upper extremity was negative for DVT. I did discuss this finding with the patient. I also discussed the possibility of false negatives and clot propagation. Patient was advised to continue to take Tylenol and ibuprofen for pain. I told her her symptoms get worse over do not completely resolve over the next 4-7 days she should return to the emergency department for repeat ultrasound. I also told important follow-up with PCP for re-evaluation as well. Discharge Plan Discharge Clinical Impression: Arm pain, left Patient Disposition: Home, Self-Care Additional Instructions: At this time, I do not have a clear cause for your pain, I suspect that it is related to your muscles and not a blood clot. The duplex ultrasound of your left upper extremity was normal. The radiologist did not see any blood clot at this time to explain your symptoms which I think is very reassuring Sometimes, an ultrasound may be falsely negative and can miss a very small blood clot, therefore if your symptoms get worse over the next 4-7 days or your not better and your arm is more swollen, than you should return to the emergency department for repeat ultrasound. Take ibuprofen 200 mg pills, 3 pills every 6 hours as needed for pain. Take Tylenol (acetaminophen) 500 mg pills, 2 pills every 4 to 6 hours as needed for pain. Follow-up with your doctor in 2 days. Please return to the emergency department if your symptoms get worse or if you develop any symptoms that are concerning to you.
[2021-08-01 12:43] VITALS: BP 102/47; PULSE 77; RESP 18; O2SAT 100
--- NOTE | 2021-08-01 12:44 | PC.NURSE ---
pt is alert and oriented, skin pwd, respirations even and unlabored, pt reports noticing a small bump on her left upper arm, bump is tender and makes her entire arm tingle, pain at 4/10 is concern of a blood clot
== END 2021-08-01 15:42 | disposition home or self-care (01) ==
PROVIDERS: Emergency Provider Emergency Medicine Emergency Medical Services
DX: R07.89 Other chest pain (principal); R60.0 Localized edema; M79.602 Pain in left arm; R00.2 Palpitations; Z87.891 Personal history of nicotine dependence
CPT/HCPCS: 93005; 93971; 99284

== ENCOUNTER 2021-08-16 17:31 | Emergency (ER) | payer OTHER, SELFPAY ==
--- NOTE | ~2021-08-16 | XR_ITS ---
EXAMINATION: XR CHEST CLINICAL INFORMATION: Cough COMPARISON: None TECHNIQUE: Frontal view of the chest was obtained. FINDINGS: No significant abnormality is noted involving the heart, lungs, mediastinum, bony thorax or soft tissues. XR/XR chest 1V IMPRESSION: Unremarkable examination.
--- NOTE | 2021-08-16 17:34 | ECG_ITS ---
Test Reason : CP Blood Pressure : / mmHG Vent. Rate : 084 BPM Atrial Rate : 084 BPM P-R Int : 136 ms QRS Dur : 084 ms QT Int : 360 ms P-R-T Axes : 066 048 047 degrees QTc Int : 425 ms Normal sinus rhythm Normal ECG When compared with ECG of 01-AUG-2021 10:53, No significant change was found Referred By: Generic ED Physician Electronically Signed By:SEAN HAGAN MD
[2021-08-16 17:37] VITALS: BP 115/64; PULSE 88; RESP 18; TEMP 36.9; O2SAT 98; BMI 32.0
--- NOTE | 2021-08-16 20:11 | PC.NURSE ---
pt alert and oriented in no distress, c/o cp foe a few days described as stabbing, squeezing, increased with movement, radiating to back and jaw. c/o nausea no sob or diaphoresis
[2021-08-16 20:15] VITALS: BP 110/73; PULSE 79; PULSE 81; RESP 17; O2SAT 100
[2021-08-16 20:57] LABS: MANUAL DIFF FLAG NO
[2021-08-16 20:58] LABS: Basophils Percent Auto 0.3 % (0-2); Eosinophils Absolute Auto 0.1 X10*3/uL (0.0-0.4); Eosinophils Percent Auto 1.4 % (0-4); Hematocrit 35.5 % (37.0-47.0); Hemoglobin 11.5 g/dl (12.0-16.0); Imm Gran Abs Auto 0.01 X10*3/uL (0.00-0.03); Imm Gran Pct Auto 0.2 % (0.0-0.4); Lymphocytes Absolute Auto 1.9 X10*3/uL (1.2-4.9); Lymphocytes Percent Auto 29.5 % (20-40); Mean Corpuscular HGB Conc 32.4 g/dl (31.0-35.0); Mean Corpuscular Hemoglobin 26.9 pg (27.0-33.0); Mean Corpuscular Volume 83.1 fL (80.0-98.0); Monocytes Absolute Auto 0.5 X10*3/uL (0.1-1.2); Monocytes Percent Auto 7.2 % (2-11); Neutrophils Percent Auto 61.4 % (45-73); Platelet Count 250 X10*3/uL (160-400); Red Blood Count 4.27 X10*6/uL (4.20-5.50); Red Cell Distribution Width 13.6 % (11.0-16.0); White Blood Count 6.6 X10*3/uL (4.8-10.8)
[2021-08-16 21:03] LABS: COVID-19 Test Negative (Negative); IDNOW Serial# 16C4AD1C; Influenza A Negative (Negative); Influenza B2 Negative (Negative)
[2021-08-16 21:17] LABS: Troponin-I High Sensitivity < 3.5 ng/L (<3.5-17.0)
[2021-08-16 21:19] LABS: Alanine Aminotransferase 9 U/L (0-31); Albumin Level 4.2 g/dL (3.5-5.0); Alkaline Phosphatase 64 U/L (39-117); Anion Gap 13 (12-20); Aspartate Amino Transferase 12 U/L (5-31); Bilirubin Total 0.3 mg/dL (0.0-1.0); Blood Urea Nitrogen 8 mg/dL (9-16); Calcium 9.6 mg/dL (8.4-10.2); Carbon Dioxide 23 mmol/L (22-29); Chloride 108 mmol/L (96-108); Creatinine Clr Calc Pharmacy 121.1; Estimated Glomerular Filt Rate > 60; Glucose Random 90 mg/dL (60-115); Sodium 140 mmol/L (135-145); Total Protein 7.2 g/dL (6.5-8.0)
[2021-08-16 21:19] LABS: Appearance Urine CLEAR; Color Urine YELLOW; Glucose Urine UA NEG (NEG); Leukocyte Esterase Urine 1+ (NEG); Nitrite Urine NEG (NEG); UACC Culture Trigger YES; Urine Blood NEG (NEG); Urine Ketones NEG (NEG); Urine Protein NEG (NEG-TRACE)
--- NOTE | 2021-08-16 21:23 | ED_ITS ---
HPI - Chest Pain General Chief Complaint: Chest Pain Stated Complaint: chest and jaw pain Time Seen by Provider: 08/16/21 21:23 Source: patient Mode of arrival: ambulatory Limitations: no limitations History of Present Illness HPI narrative: This is a 25-year-old female came in for evaluation of chest pain for 3 days. Patient came in for evaluation of chest pain started 3 days ago, pain is mostly in the mid chest, intermittent chest aches, radiates to both jaws, pain is associated with left arm numbness last for few minutes, pain is not exertional, no shortness of breath, patient declined any recent travel no lower extremities tenderness or swelling. No recent chest trauma. No unexpected sudden young in the family. Family history of heart attacks age 50s on above, patient is nonsmoker and declined any other past medical history, no history of drug use, patient is a former smoker. Patient currently is receiving antibiotic treatment for sinusitis. Related Data Allergies Allergy/AdvReac Type Severity Reaction Status Date / Time vancomycin Allergy Swelling Verified 08/01/21 10:51 Review of Systems Review of Systems: All other systems are reviewed and are negative Constitutional: Reports as per HPI and Reports no additional constitutional complaints Eyes: Reports as per HPI and Reports no additional eye complaints Reports system reviewed and no additional complaints, except as documented Cardiovascular: Reports as per HPI and Reports no additional cardiovascular complaints Respiratory: Reports as per HPI and Reports no additional respiratory complaints Gastrointestinal: Reports as per HPI and Reports no additional gastrointestinal complaints Genitourinary: Reports no additional female genitourinary complaints Musculoskeletal: Reports no additional musculoskeletal complaints Skin/Breast: Reports system reviewed and no additional complaints, except as docu Psychiatric: Reports no additional psychiatric complaints Endocrine: Reports no additional endocrine complaints Hematologic/Lymphatic: Reports no additional hematologic/lymphatic complaints Allergic/Immunologic: Reports no additional allergic/immunologic complaints Reports system reviewed and no additional complaints, except as documented and Reports Abnormal speech present PMFSH Past Medical History Medical History Asthma PFO (patent foramen ovale) Social History Social History Patient Tobacco Use Status: Former Tobacco user Advance Directives: No Advance Directives Information Provided: No Physical Exam Vital Signs: Vital Signs: Last Vital Signs Temp 98.1 F 08/16/21 22:16 Pulse 69 06/01/22 22:16 Resp 16 08/16/21 22:16 BP 101/71 08/16/21 22:16 Pulse Ox 100 08/16/21 22:16 BMI result Body Mass Index 32.0 Vital signs have been reviewed as appeared to be correct. Blood pressure normal. Heart rate normal. Respiration rate normal. Temperature normal. O xygen saturation normal. Appearance: Alert. Oriented X3. No acute distress. Head: Normal external exam. Normocephalic. Atraumatic. No Ashley signs noted. No raccoon eyes noted Eyes: PERRLA. EOMI. Conjunctiva and sclera normal. Eyelids normal. ENT: TM's Normal. Pharynx normal. Uvula midline. Moist mucous membranes. No trismus noted. No drooling noted. No muffled voice noted. Neck: Normal inspection. Neck supple. FROM. No adenopathy. Thyroid Normal. No meningeal signs. No neck mass noted. CVS: Normal heart rate and rhythm. Heart sound normal. No murmurs noted. Pulses normal throughout. Respiratory: No respiratory distress. Painless inspiration. Breath sounds normal. No wheezes/rales/rhonchi noted. Chest nontender. No accessory muscle usage noted or decreased air movement noted. Abdomen: Soft and nontender. Bowel sounds normal in all 4 quadrants. No dis tention noted. No organomegaly noted. No visible injury noted. Back: No CVA tenderness. Full range of motion noted. Skin: Skin warm and dry. Normal skin color. Normal skin turgor. No rashes/les ions/lacerations noted. Extremities: No lower extremity edema. Extremities exhibit normal range of motion. Extremities nontender. Neuro: Oriented X 3. Cranial nerve exam: II-XII are grossly intact No motor deficit. No sensory deficit. Reflexes normal. Course Course Course Narrative: Assessment and plan. 25-year-old female came in with chest pain for 3 days patient with HEART score of 0, unremarkable labs, patient at low risk for PE or DVT. Stable vital signs. MDM - Chest Pain Medical Records Data Attestation: I reviewed the patient's medical records. Lab Data Attestation: I reviewed the patient's lab results. Result diagrams: 08/16/21 20:52 08/16/21 20:52 Labs: Lab Results 08/16/21 08/16/21 08/16/21 Range/Units 20:37 20:37 20:52 WBC 6.6 (4.8-10.8) X10*3/uL RBC 4.27 (4.20-5.50) X10*6/uL Hgb 11.5 L (12.0-16.0) g/dl Hct 35.5 L (37.0-47.0) % MCV 83.1 (80.0-98.0) fL MCH 26.9 L (27.0-33.0) pg MCHC 32.4 (31.0-35.0) g/dl RDW 13.6 (11.0-16.0) % Plt Count 250 (160-400) X10*3/uL MPV 10.0 (9.4-12.3) fL Immature Gran % (Auto) 0.2 (0.0-0.4) % Neut % (Auto) 61.4 (45-73) % Lymph % (Auto) 29.5 (20-40) % Walsh % (Auto) 7.2 (2-11) % Eos % (Auto) 1.4 (0-4) % Baso % (Auto) 0.3 (0-2) % Lymph # (Auto) 1.9 (1.2-4.9) X10*3/uL Walsh # (Auto) 0.5 (0.1-1.2) X10*3/uL Eos # (Auto) 0.1 (0.0-0.4) X10*3/uL Baso # (Auto) 0.0 (0.0-0.2) X10*3/uL Abs Immat Gran (auto) 0.01 (0.00-0.03) X10*3/uL Absolute Neuts (auto) 4.0 (2.0-8.3) x10*3/uL Absolute Nucleated RBC 0.000 (0.0-0.012) X10*3/uL Nucleated RBC % (auto) 0.0 (0.0-0.2) /100WBC Sodium (135-145) mmol/L Potassium (3.3-5.1) mmol/L Chloride (96-108) mmol/L Carbon Dioxide (22-29) mmol/L Anion Gap (12-20) BUN (9-16) mg/dL Creatinine (0.5-1.4) mg/dL Estim Creat Clear Calc Estimated GFR Random Glucose (60-115) mg/dL Calcium (8.4-10.2) mg/dL Total Bilirubin (0.0-1.0) mg/dL AST (5-31) U/L ALT (0-31) U/L Alkaline Phosphatase (39-117) U/L Troponin I High Sens (<3.5-17.0) ng/L Total Protein (6.5-8.0) g/dL Albumin (3.5-5.0) g/dL Urine Color Urine Appearance Urine pH (5.0-8.0) Ur Specific Preemption (1.005-1.025) Urine Protein (NEG-TRACE) MG/DL Urine Glucose (UA) (NEG) MG/DL Urine Ketones (NEG) MG/DL Urine Blood (NEG) Urine Nitrite (NEG) Ur Leukocyte Esterase (NEG) Urine RBC (0) /HPF Urine WBC (0-4) /HPF Ur Squamous Epith Cells /LPF Urine Bacteria /LPF Urine Test (NEGATIVE) COVID-19 (MARILYNN) Negative (Negative) COVID-19 Clin Com See Note Influenza Type A (SANTY) Negative (Negative) Influenza Type B (SANTY) Negative (Negative) Influenza A & B Note See Note 08/16/21 08/16/21 08/16/21 Range/Units 20:52 20:52 21:13 WBC (4.8-10.8) X10*3/uL RBC (4.20-5.50) X10*6/uL Hgb (12.0-16.0) g/dl Hct (37.0-47.0) % MCV (80.0-98.0) fL MCH (27.0-33.0) pg MCHC (31.0-35.0) g/dl RDW (11.0-16.0) % Plt Count (160-400) X10*3/uL MPV (9.4-12.3) fL Immature Gran % (Auto) (0.0-0.4) % Neut % (Auto) (45-73) % Lymph % (Auto) (20-40) % Walsh % (Auto) (2-11) % Eos % (Auto) (0-4) % Baso % (Auto) (0-2) % Lymph # (Auto) (1.2-4.9) X10*3/uL Walsh # (Auto) (0.1-1.2) X10*3/uL Eos # (Auto) (0.0-0.4) X10*3/uL Baso # (Auto) (0.0-0.2) X10*3/uL Abs Immat Gran (auto) (0.00-0.03) X10*3/uL Absolute Neuts (auto) (2.0-8.3) x10*3/uL Absolute Nucleated RBC (0.0-0.012) X10*3/uL Nucleated RBC % (auto) (0.0-0.2) /100WBC Sodium 140 (135-145) mmol/L Potassium 4.0 (3.3-5.1) mmol/L Chloride 108 (96-108) mmol/L Carbon Dioxide 23 (22-29) mmol/L Anion Gap 13 (12-20) BUN 8 L (9-16) mg/dL Creatinine 0.72 (0.5-1.4) mg/dL Estim Creat Clear Calc 121.1 Estimated GFR > 60 Random Glucose 90 (60-115) mg/dL Calcium 9.6 (8.4-10.2) mg/dL Total Bilirubin 0.3 (0.0-1.0) mg/dL AST 12 (5-31) U/L ALT 9 (0-31) U/L Alkaline Phosphatase 64 (39-117) U/L Troponin I High Sens < 3.5 (<3.5-17.0) ng/L Total Protein 7.2 (6.5-8.0) g/dL Albumin 4.2 (3.5-5.0) g/dL Urine Color YELLOW Urine Appearance CLEAR Urine pH 6.0 (5.0-8.0) Ur Specific Preemption 1.010 (1.005-1.025) Urine Protein NEG (NEG-TRACE) MG/DL Urine Glucose (UA) NEG (NEG) MG/DL Urine Ketones NEG (NEG) MG/DL Urine Blood NEG (NEG) Urine Nitrite NEG (NEG) Ur Leukocyte Esterase 1+ H (NEG) Urine RBC 0-2 (0) /HPF Urine WBC 1-4 (0-4) /HPF Ur Squamous Epith Cells TRACE /LPF Urine Bacteria TRACE /LPF Urine Test (NEGATIVE) COVID-19 (MARILYNN) (Negative) COVID-19 Clin Com Influenza Type A (SANTY) (Negative) Influenza Type B (SANTY) (Negative) Influenza A & B Note 08/16/21 Range/Units 21:13 WBC (4.8-10.8) X10*3/uL RBC (4.20-5.50) X10*6/uL Hgb (12.0-16.0) g/dl Hct (37.0-47.0) % MCV (80.0-98.0) fL MCH (27.0-33.0) pg MCHC (31.0-35.0) g/dl RDW (11.0-16.0) % Plt Count (160-400) X10*3/uL MPV (9.4-12.3) fL Immature Gran % (Auto) (0.0-0.4) % Neut % (Auto) (45-73) % Lymph % (Auto) (20-40) % Walsh % (Auto) (2-11) % Eos % (Auto) (0-4) % Baso % (Auto) (0-2) % Lymph # (Auto) (1.2-4.9) X10*3/uL Walsh # (Auto) (0.1-1.2) X10*3/uL Eos # (Auto) (0.0-0.4) X10*3/uL Baso # (Auto) (0.0-0.2) X10*3/uL Abs Immat Gran (auto) (0.00-0.03) X10*3/uL Absolute Neuts (auto) (2.0-8.3) x10*3/uL Absolute Nucleated RBC (0.0-0.012) X10*3/uL Nucleated RBC % (auto) (0.0-0.2) /100WBC Sodium (135-145) mmol/L Potassium (3.3-5.1) mmol/L Chloride (96-108) mmol/L Carbon Dioxide (22-29) mmol/L Anion Gap (12-20) BUN (9-16) mg/dL Creatinine (0.5-1.4) mg/dL Estim Creat Clear Calc Estimated GFR Random Glucose (60-115) mg/dL Calcium (8.4-10.2) mg/dL Total Bilirubin (0.0-1.0) mg/dL AST (5-31) U/L ALT (0-31) U/L Alkaline Phosphatase (39-117) U/L Troponin I High Sens (<3.5-17.0) ng/L Total Protein (6.5-8.0) g/dL Albumin (3.5-5.0) g/dL Urine Color Urine Appearance Urine pH (5.0-8.0) Ur Specific Preemption (1.005-1.025) Urine Protein (NEG-TRACE) MG/DL Urine Glucose (UA) (NEG) MG/DL Urine Ketones (NEG) MG/DL Urine Blood (NEG) Urine Nitrite (NEG) Ur Leukocyte Esterase (NEG) Urine RBC (0) /HPF Urine WBC (0-4) /HPF Ur Squamous Epith Cells /LPF Urine Bacteria /LPF Urine Test NEGATIVE (NEGATIVE) COVID-19 (MARILYNN) (Negative) COVID-19 Clin Com Influenza Type A (SANTY) (Negative) Influenza Type B (SANTY) (Negative) Influenza A & B Note Imaging Data Chest x-ray: Attestation: I personally reviewed and interpreted this imaging study as follows: Radiologist's impression: No acute pathology ECG Data ECG #1: Attestation: I personally reviewed and interpreted this ECG as follows: Interpretation: Normal sinus rhythm at 84 beats per minutes, normal intervals, normal axis deviation, no ST-T changes, no change from previous EKG. Discharge Plan Discharge Clinical Impression: Atypical chest pain Patient Disposition: Home, Self-Care Instructions: Chest Pain (ED) Referrals: Ashok Adam DO [Primary Care Provider] -
[2021-08-16 21:45] LABS: RBC Urine 0-2 /HPF (0); Squamous Epithelial Cell Urine TRACE /LPF
[2021-08-16 21:46] LABS: Bacteria Urine TRACE /LPF
[2021-08-16 21:48] LABS: UPreg QC Valid YES; Urine Pregnancy NEGATIVE (NEGATIVE)
[2021-08-16 22:16] VITALS: BP 101/71; PULSE 69; RESP 16; TEMP 36.7; O2SAT 100
== END 2021-08-16 22:28 | disposition home or self-care (01) ==
PROVIDERS: Emergency Provider Emergency Medicine; PCP Student in an Organized Health Care Education/Training Program
DX: R07.89 Other chest pain (principal); J32.9 Chronic sinusitis, unspecified; J45.909 Unspecified asthma, uncomplicated; Z87.891 Personal history of nicotine dependence; Z20.822 Contact with and (suspected) exposure to COVID-19
CPT/HCPCS: 71045; 80053; 81001; 81025; 84484; 85025; 87086; 87502; 87635; 93005; 99283; 99284

== ENCOUNTER 2021-08-17 14:45 | Emergency (ER) | payer OTHER, SELFPAY ==
--- NOTE | ~2021-08-17 | XR_ITS ---
EXAMINATION: XR CHEST CLINICAL INFORMATION: Chest pain COMPARISON: 08/16/2021 TECHNIQUE: Frontal view of the chest was obtained. FINDINGS: The lungs are well expanded. There is no focal consolidation, edema, or effusion. No pneumothorax. The cardiomediastinal silhouette is within normal limits. No acute osseous abnormality. XR/XR chest 1V IMPRESSION: Clear lungs.
--- NOTE | ~2021-08-17 | CT_ITS ---
EXAMINATION: CT ANGIOGRAM OF THE CHEST WITH AND WITHOUT CONTRAST (CT PULMONARY ANGIOGRAM FOR PE) CLINICAL INFORMATION: Reason for Exam pleuritic CP, elevated d dimer COMPARISON: None TECHNIQUE: Prior to contrast administration, noncontrast localization images were obtained. Subsequently, multidetector volumetric imaging was performed from the thoracic inlet to below the diaphragms following the administration of 80 mL Omnipaque 350 intravenous contrast. No contrast reaction reported Sagittal, coronal, and MIP oblique sagittal reformatted images were obtained on the CT workstation, uploaded to PACS, and reviewed. This CT examination was performed using dose optimization techniques as appropriate, variously including the following: *Automated exposure control *Adjustment of mA and/or kV according to patient size (this includes techniques or standardized protocols for targeted exams where dose is matched to indication/reason for exam; i.e. extremities or head) *Use of iterative reconstruction technique Total exam dose-length product 219 mGy-cm FINDINGS: QUALITY OF STUDY/CONTRAST BOLUS: Satisfactory. PULMONARY ARTERIES: No central or segmental pulmonary emboli. THORACIC AORTA: No aneurysm or dissection. LUNG: No focal consolidation, nodules or masses. PLEURA: No pleural effusion or pneumothorax. MEDIASTINUM: Normal heart size. No pericardial effusion. No hilar or mediastinal lymphadenopathy. No evidence of septal bowing or right heart strain. CHEST WALL/AXILLA: No axillary or internal mammary lymphadenopathy. OSSEOUS STRUCTURES: No acute or suspicious osseous abnormality. UPPER ABDOMEN: Visualized liver, spleen, pancreas and bilateral adrenal glands are unremarkable. No reflux of contrast into the hepatic veins to suggest elevated right heart pressures. CT/CT angio chest PE protocol IMPRESSION: No evidence of PE. No evidence of aortic dissection or aneurysm. Lungs are clear. VTE: negative
[2021-08-17 14:46] VITALS: BP 108/73; PULSE 72; RESP 18; TEMP 36.9; O2SAT 100; BMI 28.3
--- NOTE | 2021-08-17 14:50 | ECG_ITS ---
Test Reason : cp Blood Pressure : / mmHG Vent. Rate : 080 BPM Atrial Rate : 080 BPM P-R Int : 140 ms QRS Dur : 078 ms QT Int : 372 ms P-R-T Axes : 065 036 041 degrees QTc Int : 429 ms Normal sinus rhythm Normal ECG When compared with ECG of 16-AUG-2021 17:33, No significant change was found Referred By: Generic ED Physician Electronically Signed By:SEAN HAGAN MD
[2021-08-17 15:10] LABS: Hematocrit 37.8 % (37.0-47.0); Hemoglobin 12.3 g/dl (12.0-16.0); Mean Corpuscular HGB Conc 32.5 g/dl (31.0-35.0); Mean Corpuscular Hemoglobin 27.4 pg (27.0-33.0); Mean Corpuscular Volume 84.2 fL (80.0-98.0); Platelet Count 275 X10*3/uL (160-400); Red Blood Count 4.49 X10*6/uL (4.20-5.50); Red Cell Distribution Width 13.5 % (11.0-16.0); White Blood Count 6.7 X10*3/uL (4.8-10.8)
[2021-08-17 15:26] LABS: COVID-19 Test Negative (Negative); IDNOW Serial# 16C4AD1C
[2021-08-17 15:31] LABS: Anion Gap 13 (12-20); Blood Urea Nitrogen 9 mg/dL (9-16); Calcium 10.2 mg/dL (8.4-10.2); Carbon Dioxide 25 mmol/L (22-29); Chloride 104 mmol/L (96-108); Estimated Glomerular Filt Rate > 60; Glucose Random 92 mg/dL (60-115); Potassium 4.3 mmol/L (3.3-5.1); Sodium 138 mmol/L (135-145)
[2021-08-17 15:40] LABS: Troponin-I High Sensitivity < 3.5 ng/L (<3.5-17.0)
[2021-08-17 19:50] VITALS: BP 111/69; PULSE 85; RESP 18; O2SAT 100
--- NOTE | 2021-08-17 19:57 | ED.CHESTPAIN ---
HPI - Chest Pain General Chief Complaint: Chest Pain Stated Complaint: CHEST PAIN DIFF BREATHING Time Seen by Provider: 08/17/21 17:42 Source: patient Limitations: no limitations History of Present Illness HPI narrative: This is a 25-year-old female who complains of pain in her chest, worse with taking a deep breath. The patient has had sinus symptoms and is on amoxicillin, has had a cough associated with this. She was seen here yesterday for chest pain and released after a complete workup. She states the pain is worse today. She denies any fever. She denies any hemoptysis. She has had some swelling in her left leg from time to time. She denies being on control pills, not tobacco smoker currently. She notes she does have a patent foramen ovale. She denies any dizzy spells, abdominal pain, nausea vomiting. The patient notes that she has seen a pulse oxreadings on her Apple watch which were and the upper 80s and she is concerned about this. Related Data Previous Rx's Medication Instructions Recorded ibuprofen 600 mg tablet 600 mg PO Q6H PRN #30 tab 08/17/21 Allergies Allergy/AdvReac Type Severity Reaction Status Date / Time vancomycin Allergy Swelling Verified 08/01/21 10:51 Review of Systems Review of Systems: Yes all other systems are reviewed and are negative Constitutional: Constitutional: Reports as per HPI and Denies fever(s) Eyes: Eyes: Reports as per HPI and Reports no additional eye complaints ENT: Reports system reviewed and no additional complaints, except as documented, Reports as per HPI, Denies nasal congestion, Denies nasal discharge and Denies sore throat Cardiovascular: Cardiovascular: Reports as per HPI, Reports chest pain and Reports dyspnea Respiratory: Respiratory: Reports as per HPI, Reports cough and Reports dyspnea Gastrointestinal: Gastrointestinal: Reports as per HPI, Denies abdominal pain, Denies diarrhea and Denies vomiting Genitourinary: Genitourinary: Reports as per HPI, Denies hematuria, Denies urinary frequency and Denies dysuria Musculoskeletal: Musculoskeletal: Reports no additional musculoskeletal complaints and Denies numbness Integumentary/Breasts: Skin/Breast: Reports as per HPI and Denies rash Neurologic: Reports as per HPI, Denies focal weakness and Denies numbness Psychiatric: Psychiatric: Reports no additional psychiatric complaints and Reports as per HPI Endocrine: Endocrine: Reports no additional endocrine complaints and Reports as per HPI Hematologic/Lymphatic: Hematologic/Lymphatic: Reports no additional hematologic/lymphatic complaints, Reports as per HPI and Reports other (No peripheral edema) [facility] Past Medical History Medical History Asthma PFO (patent foramen ovale) Social History Social History Patient Tobacco Use Status: Former Tobacco user Advance Directives: Yes Advance Directives Information Provided: Yes Advance Directives on File: No Physical Exam Vital Signs: Vital Signs: Last Vital Signs Temp 98.4 F 08/17/21 22:00 Pulse 75 08/17/21 22:00 Resp 16 08/17/21 22:00 BP 113/70 08/17/21 22:00 Pulse Ox 98 08/17/21 22:00 BMI result Body Mass Index 28.3 Const: Other: PERRLA Conj [place] Mucous membranes moist Throat clear Neck supple Lungs CTA Heart RRR no murmurs rubs or gallops Abd soft, non tender, non distended Extremities no pitting edema no calf swelling or tenderness Neuro alert and oriented x 3, non focal MDM - Chest Pain MDM Narrative Medical decision making narrative: For patient with chest pain, had a full workup yesterday, returned today, stated that her pain was worse with taking a deep breath. Pulse oximetry normal. EKG normal. Patient low risk for PE but her D-dimer was elevated so CTA was done and was negative. The patient initially did not want to be discharged as she was insistent that her pulse oximetry is low sometimes. It is explained to her that readings are not reliable there is not a good arterial tracing and the nurse and I pointed out on the monitor much the reading fluctuated when there was a bad waveform. Patient seems to have a large anxiety component. She has had a cough and may have a degree of chest wall pain/costochondritis Medical Records Data Attestation: I reviewed the patient's medical records. Lab Data Attestation: I reviewed the patient's lab results. Result diagrams: 08/17/21 15:02 08/17/21 15:02 Labs: Lab Results 08/17/21 08/17/21 08/17/21 Range/Units 15: 15: 15:02 WBC 6.7 (4.8-10.8) X10*3/uL RBC 4.49 (4.20-5.50) X10*6/uL Hgb 12.3 (12.0-16.0) g/dl Hct 37.8 (37.0-47.0) % MCV 84.2 (80.0-98.0) fL MCH 27.4 (27.0-33.0) pg MCHC 32.5 (31.0-35.0) g/dl RDW 13.5 (11.0-16.0) % Plt Count 275 (160-400) X10*3/uL MPV 10.0 (9.4-12.3) fL Absolute Nucleated RBC 0.000 (0.0-0.012) X10*3/uL Nucleated RBC % (auto) 0.0 (0.0-0.2) /100WBC D-Dimer High Sensitivty NG/ML Sodium 138 (135-145) mmol/L Potassium 4.3 (3.3-5.1) mmol/L Chloride 104 (96-108) mmol/L Carbon Dioxide 25 (22-29) mmol/L Anion Gap 13 (12-20) BUN 9 (9-16) mg/dL Creatinine 0.76 (0.5-1.4) mg/dL Estim Creat Clear Calc 108.0 Estimated GFR > 60 Random Glucose 92 (60-115) mg/dL Calcium 10.2 D (8.4-10.2) mg/dL Troponin I High Sens < 3.5 (<3.5-17.0) ng/L COVID-19 (MARILY[facility]) (Negative) COVID-19 Clin Com 08/17/21 08/17/21 Range/Units 15:02 20:21 WBC (4.8-10.8) X10*3/uL RBC (4.20-5.50) X10*6/uL Hgb (12.0-16.0) g/dl Hct (37.0-47.0) % MCV (80.0-98.0) fL MCH (27.0-33.0) pg MCHC (31.0-35.0) g/dl RDW (11.0-16.0) % Plt Count (160-400) X10*3/uL MPV (9.4-12.3) fL Absolute Nucleated RBC (0.0-0.012) X10*3/uL Nucleated RBC % (auto) (0.0-0.2) /100WBC D-Dimer High Sensitivty 599 NG/ML Sodium (135-145) mmol/L Potassium (3.3-5.1) mmol/L Chloride (96-108) mmol/L Carbon Dioxide (22-29) mmol/L Anion Gap (12-20) BUN (9-16) mg/dL Creatinine (0.5-1.4) mg/dL Estim Creat Clear Calc Estimated GFR Random Glucose (60-115) mg/dL Calcium (8.4-10.2) mg/dL Troponin I High Sens (<3.5-17.0) ng/L COVID-19 (MARILY[facility]) Negative (Negative) COVID-19 Clin Com See Note Imaging Data CTA chest: Radiologist's impression: MPRESSION: No evidence of PE. No evidence of aortic dissection or aneurysm. ? Lungs are clear. ? VTE: negative ECG Data ECG #1: Attestation: I personally reviewed and interpreted this ECG as follows: ECG interpretation date: 08/17/21 ECG interpretation time: 20:01 Interpretation: Sinus rhythm with a rate of 80. No ST elevation or depression. Normal QRS axis. No ectopy. EKG unchanged from 1 dated 08/16/2021 Discharge Plan Discharge Clinical Impression: Pleuritic chest pain Patient Disposition: Home, Self-Care Instructions: Chest Pain (ED) Additional Instructions: Use ibuprofen as prescribed. Use the cough medicine such as Robitussin DM. Follow up with your primary care physician. Prescriptions: New ibuprofen 600 mg tablet 600 mg PO Q6H PRN (Reason: pain) Qty: 30 0RF Interventions: ED Discharge Assessment Last Done: 08/17/21 23:52 Discharge Date/Time: 08/17/21 23:53
[2021-08-17] MEDS: Ketorolac Tromethamine 15 MG/ML VIAL IVPUSH (20:20)
[2021-08-17 20:41] LABS: D Dimer High Sensitivity 599 NG/ML
[2021-08-17] MEDS: iohexoL 350 MG/ML 100 ML INFUS..BTL IV (21:50)
[2021-08-17 22:00] VITALS: BP 113/70; PULSE 75; RESP 16; TEMP 36.9; O2SAT 98
== END 2021-08-17 23:53 | disposition home or self-care (01) ==
PROVIDERS: Emergency Provider Emergency Medicine; PCP Student in an Organized Health Care Education/Training Program
DX: R07.81 Pleurodynia (principal); R79.1 Abnormal coagulation profile; J45.909 Unspecified asthma, uncomplicated; Z20.822 Contact with and (suspected) exposure to COVID-19
CPT/HCPCS: 36415; 71045; 71275; 80048; 84484; 85027; 85379; 87635; 93005; 96374; 96375; 99284; J1885; Q9967

== ENCOUNTER 2021-09-07 14:53 | Emergency (ER) | payer OTHER, SELFPAY ==
--- NOTE | 2021-09-07 | ECG_ITS ---
Test Reason : chest pain Blood Pressure : / mmHG Vent. Rate : 089 BPM Atrial Rate : 089 BPM P-R Int : 136 ms QRS Dur : 086 ms QT Int : 358 ms P-R-T Axes : 070 052 054 degrees QTc Int : 435 ms Normal sinus rhythm Normal ECG When compared with ECG of 17-AUG-2021 14:49, Nonspecific T wave abnormality no longer evident in Anterior leads Referred By: Generic ED Physician Electronically Signed By:SEAN HAGAN MD
[2021-09-07 15:10] VITALS: BP 108/67; PULSE 87; RESP 16; TEMP 36.8; O2SAT 99; BMI 23.3
--- NOTE | 2021-09-07 15:42 | ED_ITS ---
HPI - Chest Pain General Chief Complaint: Chest Pain Stated Complaint: chest pain, sob Time Seen by Provider: 09/07/21 15:42 Source: patient Mode of arrival: ambulatory Limitations: no limitations History of Present Illness HPI narrative: 25 yo female presents to the ER for evaluation of heart palpitations, anxiety, asthma who presents to the ER for recurrent chest pain. She reports for the last 2 days she has had intermittent sharp central chest pains that come and go. She states yesterday she had intense chest pain that radiated to her left arm and she stated her left arm was numb and heavy. The pain went away on its own. She also reports headache, fatigue, dizziness, and sensation of lower extremity swelling. 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 She follows with a push bench operator helper for her palpitations. She currently has a Holter monitor in place for the last 2 weeks. She also had a recent echo and stress echo that were structurally normal per her report. of note patient has been to the ER to other times this month for similar episodes of pain. She had a negative CTA earlier this month. She is PERC negative. MD complaint: chest pain Pertinent past history: asthma Onset (ago): day(s) Timing of current episode: episodic Prior episodes: Yes Onset: during rest Pain location: left chest Pain radiation: left arm Severity: moderate Pain scale (0-10): 6 Quality: sharp Relieving factors: nothing Exacerbating factors: nothing Associated symptoms: palpitations Treatment prior to arrival: none Risk Factors Coronary artery disease risk factors: none Thoracic aortic dissection risk factors: none Related Data On Oral Contraceptives: No Previous Rx's Medication Instructions Recorded ibuprofen 600 mg tablet 600 mg PO Q6H PRN pain #30 tabs 08/17/21 Allergies Allergy/AdvReac Type Severity Reaction Status Date / Time vancomycin Allergy Swelling Verified 08/01/21 10:51 Review of Systems Review of Systems: Constitutional: No Fever, No Chills ENT/Mouth: No sore throat, No Rhinorrhea, No Swallowing Difficulty Cardiovascular: + Chest Pain, + SOB, No Orthopnea, No Edema Respiratory: No Cough, No Sputum, No Wheezing, No dyspnea Gastrointestinal: No Nausea, No Vomiting, No Diarrhea, No abdominal Pain Genitourinary: No Dysuria, No Urinary Frequency, No Hematuria Musculoskeletal: No joint pain, No Myalgias Skin: No Skin Lesions, No rash Neuro: No Weakness, No Numbness, + Dizziness, + Headache Psych: + Anxiety/Panic, No Depression Heme/Lymph: No Bruising, No Lymphadenopathy Endocrine: No Polyuria, No Polydipsia PMF Past Medical History Attestation statement: The following information was validated with the patient. Medical History Asthma PFO (patent foramen ovale) Social History Social History Patient Tobacco Use Status: Former Tobacco user Advance Directives: No Advance Directives Information Provided: Yes Physical Exam Vital Signs: Vital Signs: Last Vital Signs Temp 98.2 F 09/07/21 15:10 Pulse 94 09/07/21 16:39 Resp 18 09/07/21 16:39 BP 101/67 09/07/21 16:39 Pulse Ox 100 09/07/21 16:39 O2 Del Method 09/07/21 16:39 BMI result Body Mass Index 23.3 Appearance: Alert. Oriented X3. No acute distress. Eyes: Pupils equal, round and reactive to light. ENT: Pharynx normal. Neck: Normal inspection. Neck supple. CVS: Normal heart rate and rhythm. Pulses normal. Respiratory: No respiratory distress. Breath sounds normal. Abdomen: Soft and nontender. +BS x4 Skin: Skin warm and dry. Normal skin color. No calf tenderness Neuro: Oriented X 3. No motor deficit. No sensory deficit. Course Course Course Narrative: 25-year-old female with a history of palpitations, anxiety presents with intermittent chest pains x2 days long with left arm pain, jaw pain, SOB, fatigue, and dizziness. This is in the setting of recent medication change from metoprolol to cardizem. She follows with Patient Transportation Driver in [facility]. Has a current Holter monitor on. this is her 5th ER visit for chest pain in the last 2 months. She had an extensive workup done here in the last few visits including a negative CTA. On arrival to the ER patient's vital signs are within normal limits. Her exam is unremarkable. Holter monitor in place. Her EKG is normal. Lab workup is pending. Suspect some of her symptoms are due to adverse side effects of her Cardizem. Also likely underlying anxiety component. Reevaluation(s) Reevaluation #1: Labs are unremarkable including an undetectable troponin. Discussed with the patient how her symptoms may be due to Cardizem and underlying anxiety. She was worried that her chest pain is cardiac in nature because rated his left arm. She has several presentations are similar to this documented here. At this time would recommend patient follow-up with her push bench operator helper for further recommendations on management and medications. MDM - Chest Pain Medical Records Data Attestation: I reviewed the patient's medical records. Lab Data Attestation: I reviewed the patient's lab results. Result diagrams: 09/07/21 15:50 09/07/21 15:50 Labs: Lab Results 09/07/21 09/07/21 09/07/21 Range/Units 15:50 15:50 15:50 WBC 6.3 (4.8-10.8) X10*3/uL RBC 4.10 L (4.20-5.50) X10*6/uL Hgb 11.2 L (12.0-16.0) g/dl Hct 34.3 L (37.0-47.0) % MCV 83.7 (80.0-98.0) fL MCH 27.3 (27.0-33.0) pg MCHC 32.7 (31.0-35.0) g/dl RDW 13.9 (11.0-16.0) % Plt Count 207 (160-400) X10*3/uL MPV 9.9 (9.4-12.3) fL Immature Gran % (Auto) 0.2 (0.0-0.4) % Neut % (Auto) 70.2 (45-73) % Lymph % (Auto) 20.2 (20-40) % [place] % (Auto) 7.7 (2-11) % Eos % (Auto) 1.4 (0-4) % Baso % (Auto) 0.3 (0-2) % Lymph # (Auto) 1.3 (1.2-4.9) X10*3/uL [place] # (Auto) 0.5 (0.1-1.2) X10*3/uL Eos # (Auto) 0.1 (0.0-0.4) X10*3/uL Baso # (Auto) 0.0 (0.0-0.2) X10*3/uL Abs Immat Gran (auto) 0.01 (0.00-0.03) X10*3/uL Absolute Neuts (auto) 4.4 (2.0-8.3) x10*3/uL Absolute Nucleated RBC 0.000 (0.0-0.012) X10*3/uL Nucleated RBC % (auto) 0.0 (0.0-0.2) /100WBC Sodium 140 (135-145) mmol/L Potassium 4.3 (3.3-5.1) mmol/L Chloride 109 H (96-108) mmol/L Carbon Dioxide 24 (22-29) mmol/L Anion Gap 11 L (12-20) BUN 10 (9-16) mg/dL Creatinine 0.79 (0.5-1.4) mg/dL Estim Creat Clear Calc 97.9 Estimated GFR > 60 Random Glucose 94 (60-115) mg/dL Calcium 9.1 D (8.4-10.2) mg/dL Total Bilirubin 0.4 (0.0-1.0) mg/dL AST 13 (5-31) U/L ALT 8 (0-31) U/L Alkaline Phosphatase 65 (39-117) U/L Troponin I High Sens < 3.5 (<3.5-17.0) ng/L Total Protein 7.1 (6.5-8.0) g/dL Albumin 4.3 (3.5-5.0) g/dL ECG Data ECG #1: Attestation: I personally reviewed and interpreted this ECG as follows: ECG interpretation date: 09/07/21 ECG interpretation time: 16:37 Prior ECG tracings: available for review Interpretation: Normal sinus rhythm, heart rate 89 beats per minute, normal MT interval, normal QTC, no ST segment elevations or depressions. Discharge Plan Discharge Clinical Impression: Atypical chest pain, Adverse effects of medication Patient Disposition: Home, Self-Care Instructions: Chest Pain (DC) Additional Instructions: Your lab workup today was unremarkable. Your EKG was normal. Your troponin which is a cardiac enzyme release under cardiac stress was undetectable. Your pain is not thought to be cardiac in nature. Your dizziness, fatigue, and pain may be an adverse side effect of your newly prescribed Cardizem. Anxiety also may be playing a role. Recommend following up with your push bench operator helper for further recommendations. You may want to hold the medication moving forward. If you develop new or worsening symptoms call 911 or come back to the ER for further evaluation. Prescriptions: No Action ibuprofen 600 mg tablet 600 mg PO Q6H PRN (Reason: pain) Qty: 30 0RF
[2021-09-07 15:59] LABS: MANUAL DIFF FLAG NO
[2021-09-07 16:01] LABS: Basophils Percent Auto 0.3 % (0-2); Eosinophils Absolute Auto 0.1 X10*3/uL (0.0-0.4); Eosinophils Percent Auto 1.4 % (0-4); Hematocrit 34.3 % (37.0-47.0); Hemoglobin 11.2 g/dl (12.0-16.0); Imm Gran Abs Auto 0.01 X10*3/uL (0.00-0.03); Imm Gran Pct Auto 0.2 % (0.0-0.4); Lymphocytes Absolute Auto 1.3 X10*3/uL (1.2-4.9); Lymphocytes Percent Auto 20.2 % (20-40); Mean Corpuscular HGB Conc 32.7 g/dl (31.0-35.0); Mean Corpuscular Hemoglobin 27.3 pg (27.0-33.0); Mean Corpuscular Volume 83.7 fL (80.0-98.0); Mean Platelet Volume 9.9 fL (9.4-12.3); Monocytes Absolute Auto 0.5 X10*3/uL (0.1-1.2); Monocytes Percent Auto 7.7 % (2-11); Neutrophils Absolute Auto 4.4 x10*3/uL (2.0-8.3); Neutrophils Percent Auto 70.2 % (45-73); Platelet Count 207 X10*3/uL (160-400); Red Cell Distribution Width 13.9 % (11.0-16.0); White Blood Count 6.3 X10*3/uL (4.8-10.8)
[2021-09-07 16:19] LABS: Alanine Aminotransferase 8 U/L (0-31); Albumin Level 4.3 g/dL (3.5-5.0); Alkaline Phosphatase 65 U/L (39-117); Anion Gap 11 (12-20); Aspartate Amino Transferase 13 U/L (5-31); Bilirubin Total 0.4 mg/dL (0.0-1.0); Blood Urea Nitrogen 10 mg/dL (9-16); Calcium 9.1 mg/dL (8.4-10.2); Carbon Dioxide 24 mmol/L (22-29); Chloride 109 mmol/L (96-108); Creatinine Clr Calc Pharmacy 97.9; Estimated Glomerular Filt Rate > 60; Glucose Random 94 mg/dL (60-115); Potassium 4.3 mmol/L (3.3-5.1); Sodium 140 mmol/L (135-145); Total Protein 7.1 g/dL (6.5-8.0); Troponin-I High Sensitivity < 3.5 ng/L (<3.5-17.0)
[2021-09-07 16:39] VITALS: BP 101/67; PULSE 94; RESP 18; O2SAT 100
[2021-09-07 16:57] VITALS: BP 110/75; PULSE 95; O2SAT 100
== END 2021-09-07 16:59 | disposition home or self-care (01) ==
PROVIDERS: Emergency Provider Emergency Medicine Emergency Medical Services
DX: R07.89 Other chest pain (principal); T46.1X5A Adverse effect of calcium-channel blockers, initial encounter; Y92.9 Unspecified place or not applicable; R00.2 Palpitations; J45.909 Unspecified asthma, uncomplicated
CPT/HCPCS: 36415; 80053; 84484; 85025; 93005; 99283

== ENCOUNTER 2021-09-08 17:56 | Emergency (ER) | payer OTHER, SELFPAY ==
[2021-09-08 18:13] VITALS: BP 110/80; PULSE 100; RESP 17; TEMP 36.6; O2SAT 98; BMI 28.0
--- NOTE | 2021-09-08 18:19 | ECG_ITS ---
Test Reason : Numbness Blood Pressure : / mmHG Vent. Rate : 093 BPM Atrial Rate : 093 BPM P-R Int : 140 ms QRS Dur : 084 ms QT Int : 344 ms P-R-T Axes : 066 046 055 degrees QTc Int : 427 ms Normal sinus rhythm Normal ECG When compared with ECG of 07-SEP-2021 15:00, No significant change was found Referred By: Generic ED Physician Electronically Signed By:SEAN HAGAN MD
[2021-09-08 18:57] LABS: MANUAL DIFF FLAG NO
[2021-09-08 18:58] LABS: Basophils Percent Auto 0.3 % (0-2); Eosinophils Absolute Auto 0.1 X10*3/uL (0.0-0.4); Eosinophils Percent Auto 1.6 % (0-4); Hematocrit 34.5 % (37.0-47.0); Hemoglobin 11.1 g/dl (12.0-16.0); Imm Gran Abs Auto 0.03 X10*3/uL (0.00-0.03); Imm Gran Pct Auto 0.4 % (0.0-0.4); Lymphocytes Absolute Auto 1.5 X10*3/uL (1.2-4.9); Lymphocytes Percent Auto 21.1 % (20-40); Mean Corpuscular HGB Conc 32.2 g/dl (31.0-35.0); Mean Corpuscular Hemoglobin 26.9 pg (27.0-33.0); Mean Corpuscular Volume 83.5 fL (80.0-98.0); Mean Platelet Volume 10.5 fL (9.4-12.3); Monocytes Absolute Auto 0.6 X10*3/uL (0.1-1.2); Monocytes Percent Auto 8.4 % (2-11); Neutrophils Absolute Auto 4.7 x10*3/uL (2.0-8.3); Neutrophils Percent Auto 68.2 % (45-73); Platelet Count 228 X10*3/uL (160-400); Red Blood Count 4.13 X10*6/uL (4.20-5.50); Red Cell Distribution Width 13.8 % (11.0-16.0); White Blood Count 6.9 X10*3/uL (4.8-10.8)
[2021-09-08 18:59] LABS: Appearance Urine CLEAR; Color Urine STRAW; Glucose Urine UA NEG (NEG); Leukocyte Esterase Urine NEG (NEG); Nitrite Urine NEG (NEG); Specific Gravity - Urine <= 1.005 (1.005-1.025); UACC Culture Trigger NO; UPreg QC Valid YES; Urine Blood 3+ (NEG); Urine Ketones NEG (NEG); Urine Pregnancy NEGATIVE (NEGATIVE); Urine Protein NEG (NEG-TRACE)
[2021-09-08 19:06] LABS: WBC Urine 0-2 /HPF (0-4)
[2021-09-08 19:14] LABS: Anion Gap 11 (12-20); Blood Urea Nitrogen 7 mg/dL (9-16); Calcium 9.2 mg/dL (8.4-10.2); Carbon Dioxide 24 mmol/L (22-29); Chloride 107 mmol/L (96-108); Creatinine Clr Calc Pharmacy 103.3; Estimated Glomerular Filt Rate > 60; Glucose Random 112 mg/dL (60-115); Potassium 4.2 mmol/L (3.3-5.1); Sodium 138 mmol/L (135-145)
[2021-09-08 19:21] LABS: Troponin-I High Sensitivity < 3.5 ng/L (<3.5-17.0)
--- NOTE | 2021-09-08 21:41 | ED_ITS ---
HPI - General Adult General Chief complaint: General Medical Stated complaint: numbness in face/chest pain/numbness in L arm Source: patient Mode of arrival: ambulatory Limitations: no limitations History of Present Illness HPI narrative: 25-year-old female presents with facial numbness, elevated blood pressure of 131/103 , elevated heart rate, warm sensation in her chest, pain in her left arm and left leg, feeling dizzy, weak, and anxious. She states that she has had multiple workups, was evaluated by someone earlier today but does not recall which physician, currently has a cardiac nurse in place. Onset (ago): month(s) Location: head, face, chest, upper extremity and lower extremity Radiation: non-radiation Severity: moderate Severity scale (1-10): 7 Pain Consistency: intermittent Relieving factors: none Associated symptoms: chest pain, headaches and weakness Treatments prior to arrival: none Related Data Previous Rx's Medication Instructions Recorded ibuprofen 600 mg tablet 600 mg PO Q6H PRN pain #30 tabs 08/17/21 lorazepam 0.5 mg tablet (Ativan) 0.5 mg PO BID PRN anxiety 4 days 09/08/21 #8 tabs Allergies Allergy/AdvReac Type Severity Reaction Status Date / Time vancomycin Allergy Swelling Verified 08/01/21 10:51 Review of Systems Review of Systems: Constitutional: No Fever, No Chills ENT/Mouth: No Ear Pain, No Hoarseness, No sore throat Eyes: No Eye Pain, No Swelling, No Redness, No Foreign Body Cardiovascular: Positive Chest Pain, No SOB Respiratory: No Cough, No Dyspnea Gastrointestinal: No Nausea, No Vomiting, No Diarrhea, No abdominal Pain Genitourinary: No Dysuria, No Hematuria Musculoskeletal: No joint pain, positive Myalgias, No Joint Swelling Skin: No Skin lacerations, No rash Neuro: Positive Weakness, positive Numbness, positive Paresthesias, No Loss of Consciousness, positive Dizziness, No Headache Psych: Positive Anxiety/Panic, No Depression Heme/Lymph: no easy bruising, no Lymphadenopathy Endocrine: No Polyuria, No Polydipsia Yes all other systems are reviewed and are negative [facility] Past Medical History Attestation statement: The following information was validated with the patient. Source: old records reviewed Medical History Asthma PFO (patent foramen ovale) Social History Social History Patient Tobacco Use Status: Former Tobacco user Advance Directives: No Physical Exam ED Vital Signs: Vital Signs - 24 hr 09/08/21 18:13 09/08/21 22:08 09/08/21 22:52 Temperature 98 F Pulse Rate 100 82 89 Respiratory Rate 17 16 18 Blood Pressure 110/80 118/80 124/80 Pulse Oximetry 98 98 100 Oxygen Delivery Method Room Air Room Air Room Air BMI result Body Mass Index 28.0 Appearance: Alert. Oriented X3. No acute distress. Eyes: Pupils equal, round and reactive to light. EOMI. Sclera nonicteric. ENT: Pharynx normal. Neck: Normal inspection. Neck supple. CVS: Normal heart rate and rhythm. Pulses normal. Respiratory: No respiratory distress. Breath sounds normal. Abdomen: Soft and nontender. Skin: Skin warm and dry. Normal skin color. Normal skin turgor. Extremities: Moves all extremities against resistance. Gait well-balanced well coordinated. Neuro: No motor deficit. No sensory deficit. Cranial nerves 2-12 intact. Course Course Course Narrative: 25-year-old female presents with multiple complaints. She does have a Holter monitor in place. Last evaluation at this facility was 09/07/2021. She has been evaluated multiple times for similar circumstances at this facility as well as area hospitals. She has seen Neurology, Cardiology, has had an MRI of the brain on 07/19/2021, CTA of the chest on 08/17/2021, duplex on 08/01/2021 all with negative findings. Patient is on Cardizem for elevated heart rate, and is currently wearing a Holter monitor. She was evaluated yesterday at this facility for chest pain with a full workup that was negative. Patient is neurovascularly intact, alert oriented x4, answering questions softly with poor eye contact. States that she would like to be worked up for a stroke because she has had these symptoms for several months with no resolve. Multiple discussions with this patient regarding exposure to large amounts of radiation for multiple CT scans. At this time I do not feel CT scan of head is recommended as she has had negative MRI on 07/19/2021 and does not report any findings consistent with new onset of CVA, and states that all of her symptoms have been similar to prior episodes. Lab values are unremarkable, when compared to prior values. Urinalysis is heme-positive however she is having her menstrual cycle at this time. COVID influenza are negative. Is strongly recommended this patient continue to follow-up with her transfer driver and neurologist for these symptoms. She does have significant anxiety, and told me that she has run out of her Ativan and she is waiting for her psychiatry appointment on 09/12/2021. At this time I feel reasonable to refill her Ativan medication, [facility] indicates that she had several reasonable and short-term prescriptions for Ativan. Patient states that this medication just helps her sleep but does not solve the problem. I did give her some emotional support and tell her that some problems take large amounts of time to figure out. Towards the end of her evaluation, upon discharge, patient is requesting repeat CT scan. This request was declined. Medical Decision Making Differential Diagnosis Differential Diagnosis: Anxiety, atypical chest pain, adverse effects of medication Medical Records Medical records reviewed: Yes I reviewed the patient's medical records. Lab Data Lab results reviewed: Yes I reviewed the patient's lab results. Result diagrams: 09/08/21 18:50 09/08/21 18:50 Labs: Lab Results 09/08/21 09/08/21 09/08/21 Range/Units 18:50 18:50 18:50 WBC 6.9 (4.8-10.8) X10*3/uL RBC 4.13 L (4.20-5.50) X10*6/uL Hgb 11.1 L (12.0-16.0) g/dl Hct 34.5 L (37.0-47.0) % MCV 83.5 (80.0-98.0) fL MCH 26.9 L (27.0-33.0) pg MCHC 32.2 (31.0-35.0) g/dl RDW 13.8 (11.0-16.0) % Plt Count 228 (160-400) X10*3/uL MPV 10.5 (9.4-12.3) fL Immature Gran % (Auto) 0.4 (0.0-0.4) % Neut % (Auto) 68.2 (45-73) % Lymph % (Auto) 21.1 (20-40) % [place] % (Auto) 8.4 (2-11) % Eos % (Auto) 1.6 (0-4) % Baso % (Auto) 0.3 (0-2) % Lymph # (Auto) 1.5 (1.2-4.9) X10*3/uL [place] # (Auto) 0.6 (0.1-1.2) X10*3/uL Eos # (Auto) 0.1 (0.0-0.4) X10*3/uL Baso # (Auto) 0.0 (0.0-0.2) X10*3/uL Abs Immat Gran (auto) 0.03 (0.00-0.03) X10*3/uL Absolute Neuts (auto) 4.7 (2.0-8.3) x10*3/uL Absolute Nucleated RBC 0.000 (0.0-0.012) X10*3/uL Nucleated RBC % (auto) 0.0 (0.0-0.2) /100WBC Sodium 138 (135-145) mmol/L Potassium 4.2 (3.3-5.1) mmol/L Chloride 107 (96-108) mmol/L Carbon Dioxide 24 (22-29) mmol/L Anion Gap 11 L (12-20) BUN 7 L (9-16) mg/dL Creatinine 0.79 (0.5-1.4) mg/dL Estim Creat Clear Calc 103.3 Estimated GFR > 60 Random Glucose 112 (60-115) mg/dL Calcium 9.2 (8.4-10.2) mg/dL Troponin I High Sens < 3.5 (<3.5-17.0) ng/L Urine Color Urine Appearance Urine pH (5.0-8.0) Ur Specific [place] (1.005-1.025) Urine Protein (NEG-TRACE) MG/DL Urine Glucose (UA) (NEG) MG/DL Urine Ketones (NEG) MG/DL Urine Blood (NEG) Urine Nitrite (NEG) Ur Leukocyte Esterase (NEG) Urine RBC (0) /HPF Urine WBC (0-4) /HPF Ur Squamous Epith Cells /LPF Urine Bacteria /LPF Urine Test (NEGATIVE) COVID-19 (MARILYNN) (Negative) COVID-19 Clin Com Influenza Type A (SANTY) (Negative) Influenza Type B (SANTY) (Negative) Influenza A & B Note 09/08/21 09/08/21 09/08/21 Range/Units 18:50 18:50 22:12 WBC (4.8-10.8) X10*3/uL RBC (4.20-5.50) X10*6/uL Hgb (12.0-16.0) g/dl Hct (37.0-47.0) % MCV (80.0-98.0) fL MCH (27.0-33.0) pg MCHC (31.0-35.0) g/dl RDW (11.0-16.0) % Plt Count (160-400) X10*3/uL MPV (9.4-12.3) fL Immature Gran % (Auto) (0.0-0.4) % Neut % (Auto) (45-73) % Lymph % (Auto) (20-40) % [place] % (Auto) (2-11) % Eos % (Auto) (0-4) % Baso % (Auto) (0-2) % Lymph # (Auto) (1.2-4.9) X10*3/uL [place] # (Auto) (0.1-1.2) X10*3/uL Eos # (Auto) (0.0-0.4) X10*3/uL Baso # (Auto) (0.0-0.2) X10*3/uL Abs Immat Gran (auto) (0.00-0.03) X10*3/uL Absolute Neuts (auto) (2.0-8.3) x10*3/uL Absolute Nucleated RBC (0.0-0.012) X10*3/uL Nucleated RBC % (auto) (0.0-0.2) /100WBC Sodium (135-145) mmol/L Potassium (3.3-5.1) mmol/L Chloride (96-108) mmol/L Carbon Dioxide (22-29) mmol/L Anion Gap (12-20) BUN (9-16) mg/dL Creatinine (0.5-1.4) mg/dL Estim Creat Clear Calc Estimated GFR Random Glucose (60-115) mg/dL Calcium (8.4-10.2) mg/dL Troponin I High Sens (<3.5-17.0) ng/L Urine Color STRAW Urine Appearance CLEAR Urine pH 6.0 (5.0-8.0) Ur Specific [place] <= 1.005 (1.005-1.025) Urine Protein NEG (NEG-TRACE) MG/DL Urine Glucose (UA) NEG (NEG) MG/DL Urine Ketones NEG (NEG) MG/DL Urine Blood 3+ H (NEG) Urine Nitrite NEG (NEG) Ur Leukocyte Esterase NEG (NEG) Urine RBC 10-14 H (0) /HPF Urine WBC 0-2 (0-4) /HPF Ur Squamous Epith Cells NONE /LPF Urine Bacteria NONE /LPF Urine Test NEGATIVE (NEGATIVE) COVID-19 (MARILYNN) (Negative) COVID-19 Clin Com Influenza Type A (SANTY) Negative (Negative) Influenza Type B (SANTY) Negative (Negative) Influenza A & B Note See Note 09/08/21 Range/Units 22:12 WBC (4.8-10.8) X10*3/uL RBC (4.20-5.50) X10*6/uL Hgb (12.0-16.0) g/dl Hct (37.0-47.0) % MCV (80.0-98.0) fL MCH (27.0-33.0) pg MCHC (31.0-35.0) g/dl RDW (11.0-16.0) % Plt Count (160-400) X10*3/uL MPV (9.4-12.3) fL Immature Gran % (Auto) (0.0-0.4) % Neut % (Auto) (45-73) % Lymph % (Auto) (20-40) % [place] % (Auto) (2-11) % Eos % (Auto) (0-4) % Baso % (Auto) (0-2) % Lymph # (Auto) (1.2-4.9) X10*3/uL [place] # (Auto) (0.1-1.2) X10*3/uL Eos # (Auto) (0.0-0.4) X10*3/uL Baso # (Auto) (0.0-0.2) X10*3/uL Abs Immat Gran (auto) (0.00-0.03) X10*3/uL Absolute Neuts (auto) (2.0-8.3) x10*3/uL Absolute Nucleated RBC (0.0-0.012) X10*3/uL Nucleated RBC % (auto) (0.0-0.2) /100WBC Sodium (135-145) mmol/L Potassium (3.3-5.1) mmol/L Chloride (96-108) mmol/L Carbon Dioxide (22-29) mmol/L Anion Gap (12-20) BUN (9-16) mg/dL Creatinine (0.5-1.4) mg/dL Estim Creat Clear Calc Estimated GFR Random Glucose (60-115) mg/dL Calcium (8.4-10.2) mg/dL Troponin I High Sens (<3.5-17.0) ng/L Urine Color Urine Appearance Urine pH (5.0-8.0) Ur Specific [place] (1.005-1.025) Urine Protein (NEG-TRACE) MG/DL Urine Glucose (UA) (NEG) MG/DL Urine Ketones (NEG) MG/DL Urine Blood (NEG) Urine Nitrite (NEG) Ur Leukocyte Esterase (NEG) Urine RBC (0) /HPF Urine WBC (0-4) /HPF Ur Squamous Epith Cells /LPF Urine Bacteria /LPF Urine Test (NEGATIVE) COVID-19 (MARILYNN) Negative (Negative) COVID-19 Clin Com See Note Influenza Type A (SANTY) (Negative) Influenza Type B (SANTY) (Negative) Influenza A & B Note ECG Data Attestation: I personally reviewed and interpreted this ECG as follows: Prior ECG tracings: available for review Interpretation: Vent. rate 93 BPM NC interval 140 ms QRS duration 84 ms QT/QTc 344/427 ms P-R-T axes 66 46 55 Normal sinus rhythm Normal ECG When compared with ECG of 07-SEP-2021 15:00, No significant change was found 08-SEP-2021 18:38:21 Discharge Plan Discharge Clinical Impression: Anxiety, Dizziness, Hypertension Patient Disposition: Home, Self-Care Instructions: Hypertension (ED), Lightheadedness (ED), Anxiety (ED) Additional Instructions: You were evaluated for facial numbness, headache, elevated blood pressure, extremity pain, and abnormal chest sensation. Please continue to follow-up with your neurologist and transfer driver as scheduled. Your EKG was normal. Your lab values were within your normal limits. Your cardiac enzymes were negative. We refilled your Ativan 0.5 mg. Please continue to follow-up with psychiatry as scheduled. Thank you for choosing this emergency department for evaluation. Please follow-up with primary care physician as needed. Return to the emergency depart ment for any new, concerning, or worsening symptoms. Prescriptions: New lorazepam [Ativan] 0.5 mg tablet 0.5 mg PO BID PRN (Reason: anxiety) 4 Days Qty: 8 0RF No Action ibuprofen 600 mg tablet 600 mg PO Q6H PRN (Reason: pain) Qty: 30 0RF Referrals: Luis Angel Adam MD [Primary Care Provider] - Interventions: ED Discharge Assessment Last Done: 09/08/21 22:55 Discharge Date/Time: 09/08/21 23:16
[2021-09-08 22:08] VITALS: BP 118/80; PULSE 82; RESP 16; O2SAT 98
[2021-09-08] MEDS: LORazepam 0.5 MG TABLET PO (22:11)
[2021-09-08 22:37] LABS: COVID-19 Test Negative (Negative); IDNOW Serial# 16C4AD1C; Influenza A Negative (Negative); Influenza B2 Negative (Negative)
[2021-09-08 22:52] VITALS: BP 124/80; PULSE 89; RESP 18; O2SAT 100
== END 2021-09-08 23:16 | disposition home or self-care (01) ==
PROVIDERS: Nurse Practitioner Family; Emergency Provider Emergency Medicine Emergency Medical Services; PCP Internal Medicine
DX: F41.1 Generalized anxiety disorder (principal); R42 Dizziness and giddiness; R07.89 Other chest pain; I10 Essential (primary) hypertension; R51.9 Headache, unspecified; Z79.899 Other long term (current) drug therapy; Z20.822 Contact with and (suspected) exposure to COVID-19
CPT/HCPCS: 36415; 80048; 81001; 81025; 84484; 85025; 87502; 87635; 93005; 99283; 99284

== ENCOUNTER 2021-09-11 17:30 | Emergency (ER) | payer OTHER, SELFPAY ==
--- NOTE | 2021-09-11 | ECG_ITS ---
Test Reason : face numb, arm pain Blood Pressure : / mmHG Vent. Rate : 073 BPM Atrial Rate : 073 BPM P-R Int : 146 ms QRS Dur : 080 ms QT Int : 384 ms P-R-T Axes : 076 058 067 degrees QTc Int : 423 ms Normal sinus rhythm Normal ECG When compared with ECG of 08-SEP-2021 18:38, No significant change was found Referred By: Generic ED Physician Electronically Signed By:PINA LAWRENCE
[2021-09-11 19:14] VITALS: BP 102/79; PULSE 70; RESP 16; TEMP 36.2; O2SAT 100; BMI 28.3
[2021-09-11 19:37] LABS: MANUAL DIFF FLAG NO
[2021-09-11 19:39] LABS: Basophils Percent Auto 0.3 % (0-2); Eosinophils Absolute Auto 0.1 X10*3/uL (0.0-0.4); Eosinophils Percent Auto 1.4 % (0-4); Hematocrit 36.6 % (37.0-47.0); Hemoglobin 11.7 g/dl (12.0-16.0); Imm Gran Abs Auto 0.03 X10*3/uL (0.00-0.03); Imm Gran Pct Auto 0.4 % (0.0-0.4); Lymphocytes Absolute Auto 1.6 X10*3/uL (1.2-4.9); Lymphocytes Percent Auto 22.2 % (20-40); Mean Corpuscular Hemoglobin 26.7 pg (27.0-33.0); Mean Corpuscular Volume 83.6 fL (80.0-98.0); Mean Platelet Volume 10.1 fL (9.4-12.3); Monocytes Absolute Auto 0.5 X10*3/uL (0.1-1.2); Monocytes Percent Auto 6.9 % (2-11); Neutrophils Percent Auto 68.8 % (45-73); Platelet Count 245 X10*3/uL (160-400); Red Blood Count 4.38 X10*6/uL (4.20-5.50); Red Cell Distribution Width 13.5 % (11.0-16.0); White Blood Count 7.3 X10*3/uL (4.8-10.8)
[2021-09-11 19:52] LABS: Alanine Aminotransferase 7 U/L (0-31); Albumin Level 4.4 g/dL (3.5-5.0); Alkaline Phosphatase 66 U/L (39-117); Anion Gap 11 (12-20); Aspartate Amino Transferase 13 U/L (5-31); Bilirubin Total 0.3 mg/dL (0.0-1.0); Blood Urea Nitrogen 10 mg/dL (9-16); Calcium 9.4 mg/dL (8.4-10.2); Carbon Dioxide 24 mmol/L (22-29); Chloride 109 mmol/L (96-108); Creatinine Clr Calc Pharmacy 102.6; Estimated Glomerular Filt Rate > 60; Glucose Random 99 mg/dL (60-115); Potassium 3.9 mmol/L (3.3-5.1); Sodium 140 mmol/L (135-145); Total Protein 7.5 g/dL (6.5-8.0)
[2021-09-11 19:58] LABS: Troponin-I High Sensitivity < 3.5 ng/L (<3.5-17.0)
--- NOTE | 2021-09-11 22:07 | ED_ITS ---
HPI - General Adult General Chief complaint: General Medical Stated complaint: left side of face numb/L arm numb/headaches Time Seen by Provider: 09/11/21 22:07 Source: patient Mode of arrival: ambulatory Limitations: no limitations History of Present Illness HPI narrative: jaw numbness and headache for 2 days. headache just started in the waiting room. Lightheaded, dizziness. Has been checking her blood pressures which have been all normal. In the last month and a half patient has had Head CT, MRI of brain, venous duplex, Chest CTA all normal. Patient getting defensive when I ask her about psychiatric health. Onset (ago): day(s) Location: head and face Severity: mild Quality: other (numbness) Pain Consistency: constant Associated symptoms: headaches Related Data Previous Rx's Medication Instructions Recorded ibuprofen 600 mg tablet 600 mg PO Q6H PRN pain #30 tabs 08/17/21 lorazepam 0.5 mg tablet (Ativan) 0.5 mg PO BID PRN anxiety 4 days 09/08/21 #8 tabs Allergies Allergy/AdvReac Type Severity Reaction Status Date / Time vancomycin Allergy Swelling Verified 08/01/21 10:51 Review of Systems Constitutional: Constitutional: Reports no additional constitutional complaints Eyes: Eyes: Reports no additional eye complaints ENT: Denies dizziness Cardiovascular: Cardiovascular: Reports no additional cardiovascular complaints Respiratory: Respiratory: Reports as per HPI Gastrointestinal: Gastrointestinal: Reports no additional gastrointestinal complaints Genitourinary: Genitourinary: Reports no additional female genitourinary complaints Musculoskeletal: Musculoskeletal: Reports no additional musculoskeletal complaints Integumentary/Breasts: Skin/Breast: Denies rash Neurologic: Reports system reviewed and no additional complaints, except as documented, Denies dizziness and Denies Sensory deficit (Neuro) Psychiatric: Psychiatric: Denies anxiety [facility] Past Medical History Medical History Asthma PFO (patent foramen ovale) Social History Social History Patient Tobacco Use Status: Former Tobacco user Advance Directives: No Physical Exam ED Vital Signs: Vital Signs - 24 hr 09/11/21 19:14 Temperature 97.2 F Pulse Rate 70 Respiratory Rate 16 Blood Pressure 102/79 Pulse Oximetry 100 Oxygen Delivery Method Room Air BMI result Body Mass Index 28.3 Const General: healthy appearing Nutritional Appearance: average body habitus Orientation/consciousness: oriented to person and patient oriented x3 Limitations: no limitations HENMT Head: Yes normal to inspection Ears: external ears normal General nose exam: Normal external nose present Mouth: Normal oral and palatal mucosa present and oropharynx normal Throat: Yes posterior oropharynx normal Eyes General: appearance normal, both eyes and all related structures Neck Neck: Yes normal visual inspection Chest Chest palpation & inspection: normal inspection of the chest Resp Auscultation: clear to auscultation bilaterally Cardio Jugular venous distension: no JVD Rate: regular rate Rhythm: regular rhythm Heart sounds: S1 normal heart sound present and S2 normal heart sound present GI Inspection: Yes normal to inspection Palpation (GI): Soft to palpation, nontender and No hepatosplenomegaly present Auscultation: normal bowel sounds General: Yes no CVA tenderness Back/Spine/Pelvis Back: no CVA tenderness Skin General skin exam: no rashes or lesions noted Neuro General: oriented to person and patient oriented x3 Cranial nerves: Yes CN's II-XII intact bilaterally Motor exam (neuro): 5/5 motor strength present throughout Sensory Exam: No Sensory deficit (Neuro) Extrem General: Yes normal to inspection Psych Appearance: grossly normal Course Reevaluation(s) Reevaluation #1: patient with non descript jaw pain, headache and chest pain with complete work up in the past. My impression is anxiety but patient does not want to discuss this. Will have her follow up with her pmd Time: 23:01 Medical Decision Making Lab Data Result diagrams: 09/11/21 19:32 09/11/21 19:32 Labs: Lab Results 09/11/21 09/11/21 09/11/21 Range/Units 19:32 19:32 19:32 WBC 7.3 (4.8-10.8) X10*3/uL RBC 4.38 (4.20-5.50) X10*6/uL Hgb 11.7 L (12.0-16.0) g/dl Hct 36.6 L (37.0-47.0) % MCV 83.6 (80.0-98.0) fL MCH 26.7 L (27.0-33.0) pg MCHC 32.0 (31.0-35.0) g/dl RDW 13.5 (11.0-16.0) % Plt Count 245 (160-400) X10*3/uL MPV 10.1 (9.4-12.3) fL Immature Gran % (Auto) 0.4 (0.0-0.4) % Neut % (Auto) 68.8 (45-73) % Lymph % (Auto) 22.2 (20-40) % [place] % (Auto) 6.9 (2-11) % Eos % (Auto) 1.4 (0-4) % Baso % (Auto) 0.3 (0-2) % Lymph # (Auto) 1.6 (1.2-4.9) X10*3/uL [place] # (Auto) 0.5 (0.1-1.2) X10*3/uL Eos # (Auto) 0.1 (0.0-0.4) X10*3/uL Baso # (Auto) 0.0 (0.0-0.2) X10*3/uL Abs Immat Gran (auto) 0.03 (0.00-0.03) X10*3/uL Absolute Neuts (auto) 5.0 (2.0-8.3) x10*3/uL Absolute Nucleated RBC 0.000 (0.0-0.012) X10*3/uL Nucleated RBC % (auto) 0.0 (0.0-0.2) /100WBC Sodium 140 (135-145) mmol/L Potassium 3.9 (3.3-5.1) mmol/L Chloride 109 H (96-108) mmol/L Carbon Dioxide 24 (22-29) mmol/L Anion Gap 11 L (12-20) BUN 10 (9-16) mg/dL Creatinine 0.80 (0.5-1.4) mg/dL Estim Creat Clear Calc 102.6 Estimated GFR > 60 Random Glucose 99 (60-115) mg/dL Calcium 9.4 (8.4-10.2) mg/dL Total Bilirubin 0.3 (0.0-1.0) mg/dL AST 13 (5-31) U/L ALT 7 (0-31) U/L Alkaline Phosphatase 66 (39-117) U/L Troponin I High Sens < 3.5 (<3.5-17.0) ng/L Total Protein 7.5 (6.5-8.0) g/dL Albumin 4.4 (3.5-5.0) g/dL Beta HCG, Quant < 2 mIU/mL Urine Color Urine Appearance Urine pH (5.0-8.0) Ur Specific [place] (1.005-1.025) Urine Protein (NEG-TRACE) MG/DL Urine Glucose (UA) (NEG) MG/DL Urine Ketones (NEG) MG/DL Urine Blood (NEG) Urine Nitrite (NEG) Ur Leukocyte Esterase (NEG) Urine RBC (0) /HPF Urine WBC (0-4) /HPF Ur Squamous Epith Cells /LPF Urine Bacteria /LPF 09/11/21 Range/Units 22:34 WBC (4.8-10.8) X10*3/uL RBC (4.20-5.50) X10*6/uL Hgb (12.0-16.0) g/dl Hct (37.0-47.0) % MCV (80.0-98.0) fL MCH (27.0-33.0) pg MCHC (31.0-35.0) g/dl RDW (11.0-16.0) % Plt Count (160-400) X10*3/uL MPV (9.4-12.3) fL Immature Gran % (Auto) (0.0-0.4) % Neut % (Auto) (45-73) % Lymph % (Auto) (20-40) % [place] % (Auto) (2-11) % Eos % (Auto) (0-4) % Baso % (Auto) (0-2) % Lymph # (Auto) (1.2-4.9) X10*3/uL [place] # (Auto) (0.1-1.2) X10*3/uL Eos # (Auto) (0.0-0.4) X10*3/uL Baso # (Auto) (0.0-0.2) X10*3/uL Abs Immat Gran (auto) (0.00-0.03) X10*3/uL Absolute Neuts (auto) (2.0-8.3) x10*3/uL Absolute Nucleated RBC (0.0-0.012) X10*3/uL Nucleated RBC % (auto) (0.0-0.2) /100WBC Sodium (135-145) mmol/L Potassium (3.3-5.1) mmol/L Chloride (96-108) mmol/L Carbon Dioxide (22-29) mmol/L Anion Gap (12-20) BUN (9-16) mg/dL Creatinine (0.5-1.4) mg/dL Estim Creat Clear Calc Estimated GFR Random Glucose (60-115) mg/dL Calcium (8.4-10.2) mg/dL Total Bilirubin (0.0-1.0) mg/dL AST (5-31) U/L ALT (0-31) U/L Alkaline Phosphatase (39-117) U/L Troponin I High Sens (<3.5-17.0) ng/L Total Protein (6.5-8.0) g/dL Albumin (3.5-5.0) g/dL Beta HCG, Quant mIU/mL Urine Color YELLOW Urine Appearance CLEAR Urine pH 6.0 (5.0-8.0) Ur Specific [place] <= 1.005 (1.005-1.025) Urine Protein NEG (NEG-TRACE) MG/DL Urine Glucose (UA) NEG (NEG) MG/DL Urine Ketones NEG (NEG) MG/DL Urine Blood TRACE (NEG) Urine Nitrite NEG (NEG) Ur Leukocyte Esterase NEG (NEG) Urine RBC 1-4 (0) /HPF Urine WBC 0-2 (0-4) /HPF Ur Squamous Epith Cells TRACE /LPF Urine Bacteria TRACE /LPF ECG Data Attestation: I personally reviewed and interpreted this ECG as follows: Interpretation: normal sinus rate [address] or twave changes Discharge Plan Discharge Clinical Impression: Jaw pain, Chest pain, Anxiety Patient Disposition: Home, Self-Care Instructions: Noncardiac Chest Pain (ED), Atypical Facial Pain (ED), Anxiety (ED) Prescriptions: No Action ibuprofen 600 mg tablet 600 mg PO Q6H PRN (Reason: pain) Qty: 30 0RF lorazepam [Ativan] 0.5 mg tablet 0.5 mg PO BID PRN (Reason: anxiety) 4 Days Qty: 8 0RF Referrals: Physician,Unknown J [Primary Care Provider] - 1 week
[2021-09-11] MEDS: Ketorolac Tromethamine 60 MG/2 ML VIAL IM (22:36)
[2021-09-11 22:39] LABS: HCG Quantitative < 2 mIU/mL
[2021-09-11 22:42] LABS: Appearance Urine CLEAR; Color Urine YELLOW; Glucose Urine UA NEG (NEG); Leukocyte Esterase Urine NEG (NEG); Nitrite Urine NEG (NEG); Specific Gravity - Urine <= 1.005 (1.005-1.025); UACC Culture Trigger NO; Urine Blood TRACE (NEG); Urine Ketones NEG (NEG); Urine Protein NEG (NEG-TRACE)
[2021-09-11 22:50] LABS: Bacteria Urine TRACE /LPF; Squamous Epithelial Cell Urine TRACE /LPF; WBC Urine 0-2 /HPF (0-4)
[2021-09-11 23:31] VITALS: BP 114/67; PULSE 68; RESP 16; O2SAT 100
== END 2021-09-11 23:39 | disposition home or self-care (01) ==
PROVIDERS: Emergency Provider Emergency Medicine
DX: F41.1 Generalized anxiety disorder (principal); F43.0 Acute stress reaction; R42 Dizziness and giddiness; R51.9 Headache, unspecified; R07.89 Other chest pain; Z79.899 Other long term (current) drug therapy
CPT/HCPCS: 36415; 80053; 81001; 84484; 84702; 85025; 93005; 96372; 99284; J1885

== ENCOUNTER 2021-09-19 17:04 | Emergency (ER) | payer OTHER, SELFPAY ==
[2021-09-19 17:09] VITALS: BMI 29.2
--- NOTE | 2021-09-19 17:10 | ECG_ITS ---
Test Reason : CHEST PAIN Blood Pressure : / mmHG Vent. Rate : 085 BPM Atrial Rate : 085 BPM P-R Int : 136 ms QRS Dur : 090 ms QT Int : 372 ms P-R-T Axes : 068 032 041 degrees QTc Int : 442 ms Normal sinus rhythm Normal ECG When compared with ECG of 11-SEP-2021 19:17, No significant change was found Referred By: Generic ED Physician Electronically Signed By:Jared Whitt
[2021-09-19 19:20] VITALS: BP 118/76; PULSE 88; RESP 16; TEMP 36.8; O2SAT 100; BMI 26.5
[2021-09-19 19:30] LABS: Hematocrit 34.3 % (37.0-47.0); Mean Corpuscular HGB Conc 32.1 g/dl (31.0-35.0); Mean Corpuscular Hemoglobin 26.5 pg (27.0-33.0); Mean Corpuscular Volume 82.7 fL (80.0-98.0); Mean Platelet Volume 9.8 fL (9.4-12.3); Platelet Count 249 X10*3/uL (160-400); Red Blood Count 4.15 X10*6/uL (4.20-5.50); Red Cell Distribution Width 13.8 % (11.0-16.0); White Blood Count 8.2 X10*3/uL (4.8-10.8)
[2021-09-19 19:39] LABS: D Dimer High Sensitivity 457 NG/ML
[2021-09-19 19:44] LABS: Anion Gap 13 (12-20); Blood Urea Nitrogen 5 mg/dL (9-16); Calcium 9.2 mg/dL (8.4-10.2); Carbon Dioxide 22 mmol/L (22-29); Chloride 109 mmol/L (96-108); Creatinine Clr Calc Pharmacy 115.3; Estimated Glomerular Filt Rate > 60; Glucose Random 90 mg/dL (60-115); Potassium 4.2 mmol/L (3.3-5.1); Sodium 140 mmol/L (135-145)
[2021-09-19 19:52] LABS: Troponin-I High Sensitivity < 3.5 ng/L (<3.5-17.0)
[2021-09-19 22:59] VITALS: BP 136/87; PULSE 92; RESP 16; O2SAT 99
[2021-09-19 23:28] LABS: COVID-19 Test Negative (Negative)
[2021-09-19 23:32] VITALS: BP 113/75; PULSE 79
--- NOTE | 2021-09-19 23:33 | ED_ITS ---
HPI - General Adult General Chief complaint: Arrhythmia/Palpitations Stated complaint: chest pain/SOB/high bmp/high hemoglobin Time Seen by Provider: 09/19/21 21:14 Source: patient Mode of arrival: ambulatory Limitations: no limitations History of Present Illness HPI narrative: Patient comes to the emergency room complaining of weakness, fatigue. Patient states that she does not feel well. Patient was recently discharged from [facility], she was told that her BNP is elevated. Patient was given a prescription for Cardizem. Of note, patient has been evaluated multiple times at this facility for similar symptoms. Patient usually comes in complaining of headache, lightheadedness. Over the last month, patient has had head CT, MRI of the brain, venous duplex, chest CT all have been normal. The last time the patient was here 1 week ago, patient was asked about anxiety and she was very defensive. This time, same thing reoccurring, unwilling to talk about anxiety. Patient states that she had a Holter monitor couple of weeks ago, states everything was normal, states that her symptoms started getting worse after the Holter monitor. Related Data Previous Rx's Medication Instructions Recorded ibuprofen 600 mg tablet 600 mg PO Q6H PRN pain #30 tabs 08/17/21 lorazepam 0.5 mg tablet (Ativan) 0.5 mg PO BID PRN anxiety 4 days 09/08/21 #8 tabs Allergies Allergy/AdvReac Type Severity Reaction Status Date / Time vancomycin Allergy Swelling Verified 08/01/21 10:51 Review of Systems Review of Systems: Constitutional : No Weight loss, No Fever, No Chills, No Night Sweats, complaining of chronic fatigue ENT/Mouth : No Hearing loss, No Ear Pain, No Nasal Congestion, No Sinus Pain, No Hoarseness, No sore throat, No Rhinorrhea, No Swallowing Difficulty Eyes: No Eye Pain, No Swelling, No Redness, No Foreign Body, No Discharge, No Vision Changes Cardiovascular : No Chest Pain, No SOB, No Dyspnea on Exertion, No Orthopnea, No Edema, complaining of palpitations Respiratory : No Cough, No Sputum, No Wheezing, No Smoke Exposure, No Dyspnea Gastrointestinal : No Nausea, No Vomiting, No Diarrhea, No Constipation, No abdominal Pain, No Hematochezia, No Melena Genitourinary : no irregular bleeding, No Dysuria, No Urinary Frequency, No Hematuria, No Urinary Incontinence, No Urgency, No Flank Pain, No Urinary Flow Changes, No Hesitancy Musculoskeletal : No joint pain, No Myalgias, No Joint Swelling Skin : No Skin Lesions, No rash Neuro : No Weakness, No Numbness, No Paresthesias, No Loss of Consciousness, No Dizziness, No Headache Psych : No Anxiety/Panic, No Depression, No SI/HI/AH/VH, No Social Issues, Heme/Lymph: No Bruising, No Bleeding,No Lymphadenopathy Endocrine : No Polyuria, No Polydipsia, No Temperature Intolerance [facility] Past Medical History Medical History Asthma PFO (patent foramen ovale) Social History Social History Patient Tobacco Use Status: Former Tobacco user Advance Directives: No Physical Exam ED Vital Signs: Vital Signs - 24 hr 09/19/21 19:20 09/19/21 22:59 09/19/21 23:32 Temperature 98.2 F Pulse Rate 88 92 79 Respiratory Rate 16 16 Blood Pressure 118/76 136/87 113/75 Pulse Oximetry 100 99 Oxygen Delivery Method Room Air Room Air 09/19/21 23:41 09/19/21 23:42 09/20/21 00:00 Temperature 97.9 F Pulse Rate 87 107 H 69 Respiratory Rate 14 Blood Pressure 120/84 125/88 121/80 Pulse Oximetry 100 Oxygen Delivery Method Room Air 09/20/21 01:11 Temperature Pulse Rate 90 Respiratory Rate 14 Blood Pressure 117/76 Pulse Oximetry 100 Oxygen Delivery Method BMI result Body Mass Index 26.5 Course Course Course Narrative: I was informed by the patient's nurse that the patient said ?I know all my labs will be normal, is there any way you can keep me in the hospital? I received records from [facility], patient was seen 2 days ago at [facility] 25-year-old female with frequent ED visits, history of anxiety, asthma, IBS, complaining of ear pain, stuffy nose and intermittent palpitations. Multiple recent ED visits with repeat lab testing, EKGs and imaging, all inconclusive . Seems that patient has 3-year-old daughter recently tested positive for RSV. Patient has no pulmonary symptoms. Patient has had multiple ED visits at [facility] as well. I discussed the labs with the patient, patient's hemoglobin is slightly decreased, but this is chronic for the patient. The D-dimer was 457. A month ago her D-dimer was 599, CT scan for PE was negative. At this time, Wells criteria score for PE and DVT are both 0 Patient came in complaining that she was told that in [facility] her BNP was elevated at 162. I discussed with the patient that the BNP of 162 is not significant , patient had a negative chest x-ray at [facility]. Here, patient's BNP is less than 10, negative, patient is very upset that her BNP is normal. TSH is normal. Patient is trying to convince me that her blood pressure is low and that she cannot go home. Patient's blood pressure is 121/80. Orthostatics are negative. I tried to discuss with the patient if there are any issues at home that we can help her with or trying to figure out why she does not want to go home. At this time, there is no medical reason to keep her here in the hospital. We revisited the topic of mental health. 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 COVID test negative As the patient was getting discharged, the nurse informed me that the patient was very concerned that she did not want to be discharged because her oxygen saturation was 80% . However, patient's nurse explained to the patient that the number she was looking at is her heart rate. It was explained to her that her oxygen saturation is 100%. Medical Decision Making Lab Data Result diagrams: 09/19/21 19:21 09/19/21 19:21 Labs: Lab Results 09/19/21 09/19/21 09/19/21 Range/Units 19:21 19:21 19:21 WBC 8.2 (4.8-10.8) X10*3/uL RBC 4.15 L (4.20-5.50) X10*6/uL Hgb 11.0 L (12.0-16.0) g/dl Hct 34.3 L (37.0-47.0) % MCV 82.7 (80.0-98.0) fL MCH 26.5 L (27.0-33.0) pg MCHC 32.1 (31.0-35.0) g/dl RDW 13.8 (11.0-16.0) % Plt Count 249 (160-400) X10*3/uL MPV 9.8 (9.4-12.3) fL Absolute Nucleated RBC 0.000 (0.0-0.012) X10*3/uL Nucleated RBC % (auto) 0.0 (0.0-0.2) /100WBC D-Dimer High Sensitivty 457 NG/ML Sodium 140 (135-145) mmol/L Potassium 4.2 (3.3-5.1) mmol/L Chloride 109 H (96-108) mmol/L Carbon Dioxide 22 (22-29) mmol/L Anion Gap 13 (12-20) BUN 5 L (9-16) mg/dL Creatinine 0.69 (0.5-1.4) mg/dL Estim Creat Clear Calc 115.3 Estimated GFR > 60 Random Glucose 90 (60-115) mg/dL Calcium 9.2 (8.4-10.2) mg/dL Troponin I High Sens (<3.5-17.0) ng/L B-Natriuretic Peptide (<100) pg/mL TSH 0.64 (0.32-4.0) uIU/mL COVID-19 ([facility]) (Negative) COVID-19 Clin Com 09/19/21 09/19/21 09/19/21 Range/Units 19:21 23:02 23:48 WBC (4.8-10.8) X10*3/uL RBC (4.20-5.50) X10*6/uL Hgb (12.0-16.0) g/dl Hct (37.0-47.0) % MCV (80.0-98.0) fL MCH (27.0-33.0) pg MCHC (31.0-35.0) g/dl RDW (11.0-16.0) % Plt Count (160-400) X10*3/uL MPV (9.4-12.3) fL Absolute Nucleated RBC (0.0-0.012) X10*3/uL Nucleated RBC % (auto) (0.0-0.2) /100WBC D-Dimer High Sensitivty NG/ML Sodium (135-145) mmol/L Potassium (3.3-5.1) mmol/L Chloride (96-108) mmol/L Carbon Dioxide (22-29) mmol/L Anion Gap (12-20) BUN (9-16) mg/dL Creatinine (0.5-1.4) mg/dL Estim Creat Clear Calc Estimated GFR Random Glucose (60-115) mg/dL Calcium (8.4-10.2) mg/dL Troponin I High Sens < 3.5 (<3.5-17.0) ng/L B-Natriuretic Peptide < 10 (<100) pg/mL TSH (0.32-4.0) uIU/mL COVID-19 (MARILY[facility]) Negative (Negative) COVID-19 Clin Com See Note Discharge Plan Discharge Clinical Impression: Anxiety, Malaise Patient Disposition: Home, Self-Care Instructions: Anxiety (ED) Additional Instructions: Please follow-up with your primary care physician tomorrow. If you have any worsening or new symptoms, please return to the emergency room or call 911 Prescriptions: No Action ibuprofen 600 mg tablet 600 mg PO Q6H PRN (Reason: pain) Qty: 30 0RF lorazepam [Ativan] 0.5 mg tablet 0.5 mg PO BID PRN (Reason: anxiety) 4 Days Qty: 8 0RF Interventions: ED Discharge Assessment Last Done: 09/20/21 01:15 Discharge Date/Time: 09/20/21 01:15
[2021-09-19 23:41] VITALS: BP 120/84; PULSE 87
[2021-09-19 23:42] VITALS: BP 125/88; PULSE 107
[2021-09-20] VITALS: BP 121/80; PULSE 69; RESP 14; TEMP 36.6; O2SAT 100
[2021-09-20 00:13] LABS: TSH reflex Free T4 0.64 uIU/mL (0.32-4.0)
[2021-09-20 00:29] LABS: B Type Natriuretic Peptide < 10 pg/mL (<100)
[2021-09-20 01:11] VITALS: BP 117/76; PULSE 90; RESP 14; O2SAT 100
== END 2021-09-20 01:15 | disposition home or self-care (01) ==
PROVIDERS: Emergency Provider Emergency Medicine
DX: R00.2 Palpitations (principal); I49.9 Cardiac arrhythmia, unspecified; F41.1 Generalized anxiety disorder; R06.02 Shortness of breath; F43.0 Acute stress reaction; Z20.822 Contact with and (suspected) exposure to COVID-19; Z79.899 Other long term (current) drug therapy
CPT/HCPCS: 36415; 80048; 83880; 84443; 84484; 85027; 85379; 87635; 93005; 99283

== ENCOUNTER → 2021-09-28 10:39 | Outpatient (BNVA) | payer OTHER, SELFPAY | PROVIDERS: PCP Student in an Organized Health Care Education/Training Program; Visit Provider Nurse Practitioner Family | DX: R20.2 Paresthesia of skin (principal); R20.0 Anesthesia of skin; M54.2 Cervicalgia | CPT/HCPCS: 99202 ==

== ENCOUNTER 2021-10-03 12:27 | Outpatient (REF) | payer OTHER, SELFPAY ==
--- NOTE | ~2021-10-03 | XR_ITS ---
EXAMINATION: XR CERVICAL SPINE CLINICAL INFORMATION: Cervicalgia COMPARISON: None TECHNIQUE: 3 views of the cervical spine were obtained. FINDINGS: Normal alignment. No fracture, prevertebral soft tissue swelling, or focal osseous lesion demonstrated. Intervertebral disc heights are preserved. XR/XR cervical spine 2V IMPRESSION: Unremarkable examination.
== END 2021-10-03 12:28 | disposition home or self-care (01) ==
LOC: HO.XRAY 12:27
PROVIDERS: Visit Provider Nurse Practitioner Family
DX: M54.2 Cervicalgia (principal); R20.0 Anesthesia of skin; R20.2 Paresthesia of skin
CPT/HCPCS: 72040

== ENCOUNTER → 2021-10-12 09:46 | Outpatient (BNVA) | payer OTHER, SELFPAY | PROVIDERS: PCP Student in an Organized Health Care Education/Training Program; Visit Provider Nurse Practitioner Family | DX: R51.9 Headache, unspecified (principal); Z79.899 Other long term (current) drug therapy | CPT/HCPCS: 99212 ==

== ENCOUNTER 2021-10-13 14:03 | Emergency (ER) | payer OTHER, SELFPAY ==
--- NOTE | ~2021-10-13 | XR_ITS ---
EXAMINATION: XR CHEST CLINICAL INFORMATION: Coughing up blood, shortness of breath on exertion. COMPARISON: CTA 08/17/2021. Chest radiograph 08/17/2021. TECHNIQUE: Frontal view of the chest was obtained. FINDINGS: No significant abnormality is noted involving the heart, lungs, mediastinum, bony thorax or soft tissues. XR/XR chest 1V IMPRESSION: Unremarkable examination.
--- NOTE | ~2021-10-13 | CT_ITS ---
EXAMINATION: CT ANGIOGRAM OF THE CHEST WITH AND WITHOUT CONTRAST (CT PULMONARY ANGIOGRAM FOR PE) CLINICAL INFORMATION: Reason for Exam SOB COMPARISON: Chest CTA 08/18/2019 TECHNIQUE: Prior to contrast administration, noncontrast localization images were obtained. Subsequently, multidetector volumetric imaging was performed from the thoracic inlet to below the diaphragms following the administration of 59 mL Omnipaque 350 intravenous contrast. No contrast reaction reported Sagittal, coronal, and MIP oblique sagittal reformatted images were obtained on the CT workstation, uploaded to PACS, and reviewed. This CT examination was performed using dose optimization techniques as appropriate, variously including the following: *Automated exposure control *Adjustment of mA and/or kV according to patient size (this includes techniques or standardized protocols for targeted exams where dose is matched to indication/reason for exam; i.e. extremities or head) *Use of iterative reconstruction technique Total exam dose-length product 199 mGy-cm FINDINGS: QUALITY OF STUDY/CONTRAST BOLUS: Satisfactory. PULMONARY ARTERIES: No central or segmental pulmonary emboli. THORACIC AORTA: No aneurysm or dissection. LUNG: No focal consolidation, nodules or masses. PLEURA: No pleural effusion or pneumothorax. MEDIASTINUM: Normal heart size. No pericardial effusion. No hilar or mediastinal lymphadenopathy. No evidence of septal bowing or right heart strain. CHEST WALL/AXILLA: No axillary or internal mammary lymphadenopathy. OSSEOUS STRUCTURES: No acute or suspicious osseous abnormality. UPPER ABDOMEN: Unremarkable. No reflux of contrast into the hepatic veins to suggest elevated right heart pressures. CT/CT angio chest PE protocol IMPRESSION: 1. No evidence of pulmonary embolus. 2. No acute pulmonary process identified. VTE: negative
--- NOTE | 2021-10-13 14:07 | ECG_ITS ---
Test Reason : cp Blood Pressure : / mmHG Vent. Rate : 095 BPM Atrial Rate : 095 BPM P-R Int : 136 ms QRS Dur : 084 ms QT Int : 348 ms P-R-T Axes : 081 060 061 degrees QTc Int : 437 ms Normal sinus rhythm Normal ECG When compared with ECG of 19-SEP-2021 17:02, No significant change was found Referred By: Generic ED Physician Electronically Signed By:PINA LAWRENCE
[2021-10-13 14:15] VITALS: BP 115/68; PULSE 99; RESP 18; TEMP 37.1; O2SAT 98; BMI 27.4
--- NOTE | 2021-10-13 14:25 | PC.NURSE ---
pt in triage adding information regarding initial triage, pt sts manny been much more short of breath on exertion, and this morning i had one episode of coughing up a little bit of blood.
[2021-10-13 14:33] LABS: MANUAL DIFF FLAG NO
[2021-10-13 14:35] LABS: Appearance Urine CLEAR; Color Urine STRAW; Glucose Urine UA NEG (NEG); Leukocyte Esterase Urine NEG (NEG); Nitrite Urine NEG (NEG); Specific Gravity - Urine <= 1.005 (1.005-1.025); Urine Blood NEG (NEG); Urine Ketones NEG (NEG); Urine Protein NEG (NEG-TRACE)
[2021-10-13 14:37] LABS: UPreg QC Valid YES; Urine Pregnancy NEGATIVE (NEGATIVE)
[2021-10-13 14:42] LABS: Basophils Percent Auto 0.3 % (0-2); Eosinophils Percent Auto 0.3 % (0-4); Hematocrit 35.2 % (37.0-47.0); Hemoglobin 11.4 g/dl (12.0-16.0); Imm Gran Abs Auto 0.02 X10*3/uL (0.00-0.03); Imm Gran Pct Auto 0.3 % (0.0-0.4); Lymphocytes Absolute Auto 1.5 X10*3/uL (1.2-4.9); Lymphocytes Percent Auto 19.5 % (20-40); Mean Corpuscular HGB Conc 32.4 g/dl (31.0-35.0); Mean Corpuscular Hemoglobin 26.6 pg (27.0-33.0); Mean Corpuscular Volume 82.2 fL (80.0-98.0); Mean Platelet Volume 10.4 fL (9.4-12.3); Monocytes Absolute Auto 0.5 X10*3/uL (0.1-1.2); Monocytes Percent Auto 6.8 % (2-11); Neutrophils Absolute Auto 5.6 x10*3/uL (2.0-8.3); Neutrophils Percent Auto 72.8 % (45-73); Platelet Count 272 X10*3/uL (160-400); Red Blood Count 4.28 X10*6/uL (4.20-5.50); Red Cell Distribution Width 13.8 % (11.0-16.0); White Blood Count 7.7 X10*3/uL (4.8-10.8)
[2021-10-13 14:49] LABS: Alanine Aminotransferase 10 U/L (0-31); Albumin Level 4.8 g/dL (3.5-5.0); Alkaline Phosphatase 65 U/L (39-117); Anion Gap 14 (12-20); Aspartate Amino Transferase 14 U/L (5-31); Bilirubin Total 0.5 mg/dL (0.0-1.0); Blood Urea Nitrogen 7 mg/dL (9-16); Calcium 9.8 mg/dL (8.4-10.2); Carbon Dioxide 23 mmol/L (22-29); Chloride 106 mmol/L (96-108); Creatinine Clr Calc Pharmacy 106.3; Estimated Glomerular Filt Rate > 60; Glucose Random 95 mg/dL (60-115); Potassium 4.3 mmol/L (3.3-5.1); Sodium 139 mmol/L (135-145)
[2021-10-13 14:53] LABS: Troponin-I High Sensitivity < 3.5 ng/L (<3.5-17.0)
--- NOTE | 2021-10-13 15:38 | ED.CHESTPAIN ---
HPI - Chest Pain General Chief Complaint: Chest Pain Stated Complaint: chest pains/vomiting/hurts to breathe Time Seen by Provider: 10/13/21 15:38 Source: patient Mode of arrival: ambulatory Limitations: no limitations History of Present Illness HPI narrative: Patient is a 25 year old female presenting to the emergency department today with chest pain. Patient states that her chest hurts the worst when she takes a deep breath. Patient denies any dizziness, lightheadedness, abdominal pain, nausea, vomiting, fever, chills, blurry vision, double vision, loss of vision, difficulty breathing, shortness of breath, back pain, night sweats, pain with urination, increased urinary frequency, increased urinary urgency, blood in her urine or stool, syncope or a near syncopal episode, recent trauma or falls, bowel incontinence, bladder incontinence, bowel retention, bladder retention, or any other complaints at this time. Patient states that she is very concerned about a blood clot in her lungs because she has a family history of them. MD complaint: chest pain Onset (ago): day(s) (2) Pain location: left chest Pain radiation: none Severity: mild Relieving factors: nothing Exacerbating factors: nothing Treatment prior to arrival: none Related Data Home Medications Medication Instructions Recorded Confirmed cholecalciferol (vitamin D3) 50 50 mcg PO DAILY 09/28/21 10/12/21 mcg (2,000 unit) tablet metoprolol succinate 25 mg 12.5 mg PO BID 10/12/21 10/12/21 tablet,extended release 24 hr Previous Rx's Medication Instructions Recorded ibuprofen 600 mg tablet 600 mg PO Q6H PRN pain #30 tabs 08/17/21 lorazepam 0.5 mg tablet (Ativan) 0.5 mg PO BID PRN anxiety 4 days 09/08/21 #8 tabs gabapentin 100 mg capsule 100 mg PO BEDTIME 30 days #30 caps 09/28/21 amitriptyline 10 mg tablet 10 mg PO BEDTIME 30 days #30 tabs 10/12/21 magnesium oxide 400 mg (241.3 mg 400 mg PO DAILY 30 days #30 tabs 10/12/21 magnesium) tablet riboflavin (vitamin B2) 100 mg 400 mg PO DAILY 30 days #120 tabs 10/12/21 tablet Allergies Allergy/AdvReac Type Severity Reaction Status Date / Time vancomycin Allergy Swelling Verified 10/12/21 09:57 Review of Systems Constitutional: Constitutional: Reports no additional constitutional complaints, Denies chills, Denies fever(s) and Denies night sweats Eyes: Eyes: Reports no additional eye complaints, Denies blurry vision, Denies change in vision, Denies diplopia, Denies eye discharge, Denies loss of vision and Denies eye pain ENT: Denies dizziness Cardiovascular: Cardiovascular: Reports no additional cardiovascular complaints, Reports chest pain, Denies lightheadedness, Denies Loss of Consciousness and Denies dyspnea Respiratory: Respiratory: Reports no additional respiratory complaints and Denies dyspnea Gastrointestinal: Gastrointestinal: Reports no additional gastrointestinal complaints, Denies abdominal pain, Denies melena, Denies hematochezia, Denies change in bowel habits and Denies change in stool character Genitourinary: Genitourinary: Denies hematuria, Denies urinary frequency, Denies dysuria, Denies urinary incontinence, Denies urinary hesitancy and Denies urinary urgency Musculoskeletal: Musculoskeletal: Reports no additional musculoskeletal complaints, Denies numbness and Denies tingling Neurologic: Denies dizziness, Denies loss of vision, Denies numbness and Denies tingling Psychiatric: Psychiatric: Reports no additional psychiatric complaints Endocrine: Endocrine: Reports no additional endocrine complaints Hematologic/Lymphatic: Hematologic/Lymphatic: Reports no additional hematologic/lymphatic complaints Allergic/Immunologic: Allergic/Immunologic: Reports no additional allergic/immunologic complaints [facility] Past Medical History Attestation statement: The following information was validated with the patient. Source: old records reviewed Medical History Asthma PFO (patent foramen ovale) Surgical History No pertinent past surgical history Family History Family History Father Stomach cancer Mother DM (diabetes mellitus) Cancer HTN (hypertension) Hypercholesteremia Social History Social History Household Members: Family Alcohol intake: former Patient Tobacco Use Status: Former Tobacco user Advance Directives: No Advance Directives Information Provided: No Current occupational status: unemployed Physical Exam Vital Signs: Vital Signs: Last Vital Signs Temp 98.7 F 10/13/21 14:15 Pulse 99 10/13/21 14:15 Resp 18 10/13/21 14:15 BP 115/68 10/13/21 14:15 Pulse Ox 98 10/13/21 14:15 O2 Del Method 10/13/21 14:15 BMI result Body Mass Index 27.4 Const: General: cooperative, no acute distress, alert and awake Nutritional Appearance: well nourished Orientation/consciousness: patient oriented x3 Limitations: no limitations HEENT: Head: Yes normal to inspection and Yes atraumatic Ears: hearing grossly normal bilaterally and external ears normal General nose exam: Normal external nose present, no nasal discharge noted and no epistaxis Face and sinus: Yes normal facial exam, No abrasion and No laceration Mouth: Normal oral and palatal mucosa present, no drooling and no muffled voice Eyes: General: appearance normal, both eyes and all related structures Periorbital: periorbital findings normal Eyelids: Yes eyelids normal Conjunctivae: conjunctivae normal Pupils: Equal, round and reactive pupils present EOM: EOMs intact bilaterally Neck: Neck: Yes normal visual inspection, Yes full ROM and Yes no lymphadenopathy Chest: Chest palpation & inspection: normal inspection of the chest Resp: Effort & Inspection: normal respiratory effort and able to speak in complete sentences Auscultation: clear to auscultation bilaterally Cardio: Rate: regular rate Rhythm: regular rhythm GI: Inspection: Yes normal to inspection Neuro: General: patient oriented x3 and moves all extremities Cranial nerves: Yes Equal, round and reactive pupils present Cognition (Neuro): normal cognition Motor exam (neuro): 5/5 motor strength present throughout Sensory Exam: Normal double simultaneous stimulation for sensation Coordination: [id number] test normal Extrem: General: Yes normal to inspection, Yes full ROM and Yes capillary refill normal Psych: Appearance: grossly normal Mental Status: mental status grossly normal Affect: normal affect Attitude: cooperative Thought process: Normal thought process present Thought content: Normal thought content present Insight: Good insight present (Psych) MDM - Chest Pain MDM Narrative Medical decision making narrative: Patient is a 25 year old female presenting to the emergency department today with left sided chest pain. Patient's physical exam was unremarkable. Patient's blood work was unremarkable, including a normal d dimer. Patient's EKG was unremarkable. Patient's chest x-ray showed no acute process. I explained my physical exam findings as well as all test results to the patient. I answered all questions asked by the patient. When I reviewed everything with the patient, she was adamant that she needs to be scanned to confirm she does not have a PE. Patient's CT PE study was negative. I re-explained all results to the patient and answered all questions she asked. I stressed the importance of the patient taking her medication as prescribed. I stressed the importance of the patient following up with her primary care provider. I stressed the importance of the patient returning to the emergency department immediately if her symptoms were to worsen or if she were to develop any dizziness, shortness of breath, difficulty breathing, chest pain, blurry vision, loss of vision, nausea, vomiting, abdominal pain, fever, chills, back pain, or any other complaints. Patient verbalized agreement and understanding with this treatment plan and discharge. Differential Diagnosis Differential diagnosis: Likely costochondritis Medical Records Data Attestation: I reviewed the patient's medical records. Lab Data Attestation: I reviewed the patient's lab results. Result diagrams: 10/13/21 14:25 10/13/21 14:25 Labs: Lab Results 10/13/21 10/13/21 10/13/21 Range/Units 14:25 14:25 14:25 WBC 7.7 (4.8-10.8) X10*3/uL RBC 4.28 (4.20-5.50) X10*6/uL Hgb 11.4 L (12.0-16.0) g/dl Hct 35.2 L (37.0-47.0) % MCV 82.2 (80.0-98.0) fL MCH 26.6 L (27.0-33.0) pg MCHC 32.4 (31.0-35.0) g/dl RDW 13.8 (11.0-16.0) % Plt Count 272 (160-400) X10*3/uL MPV 10.4 (9.4-12.3) fL Immature Gran % (Auto) 0.3 (0.0-0.4) % Neut % (Auto) 72.8 (45-73) % Lymph % (Auto) 19.5 L (20-40) % [place] % (Auto) 6.8 (2-11) % Eos % (Auto) 0.3 (0-4) % Baso % (Auto) 0.3 (0-2) % Lymph # (Auto) 1.5 (1.2-4.9) X10*3/uL [place] # (Auto) 0.5 (0.1-1.2) X10*3/uL Eos # (Auto) 0.0 (0.0-0.4) X10*3/uL Baso # (Auto) 0.0 (0.0-0.2) X10*3/uL Abs Immat Gran (auto) 0.02 (0.00-0.03) X10*3/uL Absolute Neuts (auto) 5.6 (2.0-8.3) x10*3/uL Absolute Nucleated RBC 0.000 (0.0-0.012) X10*3/uL Nucleated RBC % (auto) 0.0 (0.0-0.2) /100WBC D-Dimer High Sensitivty NG/ML Sodium 139 (135-145) mmol/L Potassium 4.3 (3.3-5.1) mmol/L Chloride 106 (96-108) mmol/L Carbon Dioxide 23 (22-29) mmol/L Anion Gap 14 (12-20) BUN 7 L (9-16) mg/dL Creatinine 0.76 (0.5-1.4) mg/dL Estim Creat Clear Calc 106.3 Estimated GFR > 60 Random Glucose 95 (60-115) mg/dL Calcium 9.8 D (8.4-10.2) mg/dL Total Bilirubin 0.5 (0.0-1.0) mg/dL AST 14 (5-31) U/L ALT 10 (0-31) U/L Alkaline Phosphatase 65 (39-117) U/L Troponin I High Sens < 3.5 (<3.5-17.0) ng/L Total Protein 8.0 (6.5-8.0) g/dL Albumin 4.8 (3.5-5.0) g/dL Urine Color Urine Appearance Urine pH (5.0-8.0) Ur Specific [place] (1.005-1.025) Urine Protein (NEG-TRACE) MG/DL Urine Glucose (UA) (NEG) MG/DL Urine Ketones (NEG) MG/DL Urine Blood (NEG) Urine Nitrite (NEG) Ur Leukocyte Esterase (NEG) Urine Test (NEGATIVE) 10/13/21 10/13/21 10/13/21 Range/Units 14:25 14:25 16:14 WBC (4.8-10.8) X10*3/uL RBC (4.20-5.50) X10*6/uL Hgb (12.0-16.0) g/dl Hct (37.0-47.0) % MCV (80.0-98.0) fL MCH (27.0-33.0) pg MCHC (31.0-35.0) g/dl RDW (11.0-16.0) % Plt Count (160-400) X10*3/uL MPV (9.4-12.3) fL Immature Gran % (Auto) (0.0-0.4) % Neut % (Auto) (45-73) % Lymph % (Auto) (20-40) % [place] % (Auto) (2-11) % Eos % (Auto) (0-4) % Baso % (Auto) (0-2) % Lymph # (Auto) (1.2-4.9) X10*3/uL [place] # (Auto) (0.1-1.2) X10*3/uL Eos # (Auto) (0.0-0.4) X10*3/uL Baso # (Auto) (0.0-0.2) X10*3/uL Abs Immat Gran (auto) (0.00-0.03) X10*3/uL Absolute Neuts (auto) (2.0-8.3) x10*3/uL Absolute Nucleated RBC (0.0-0.012) X10*3/uL Nucleated RBC % (auto) (0.0-0.2) /100WBC D-Dimer High Sensitivty 219 NG/ML Sodium (135-145) mmol/L Potassium (3.3-5.1) mmol/L Chloride (96-108) mmol/L Carbon Dioxide (22-29) mmol/L Anion Gap (12-20) BUN (9-16) mg/dL Creatinine (0.5-1.4) mg/dL Estim Creat Clear Calc Estimated GFR Random Glucose (60-115) mg/dL Calcium (8.4-10.2) mg/dL Total Bilirubin (0.0-1.0) mg/dL AST (5-31) U/L ALT (0-31) U/L Alkaline Phosphatase (39-117) U/L Troponin I High Sens (<3.5-17.0) ng/L Total Protein (6.5-8.0) g/dL Albumin (3.5-5.0) g/dL Urine Color STRAW Urine Appearance CLEAR Urine pH 6.0 (5.0-8.0) Ur Specific [place] <= 1.005 (1.005-1.025) Urine Protein NEG (NEG-TRACE) MG/DL Urine Glucose (UA) NEG (NEG) MG/DL Urine Ketones NEG (NEG) MG/DL Urine Blood NEG (NEG) Urine Nitrite NEG (NEG) Ur Leukocyte Esterase NEG (NEG) Urine Test NEGATIVE (NEGATIVE) Imaging Data Chest x-ray: Attestation: I personally reviewed and interpreted this imaging study as follows: My impression: No acute process. Radiologist's impression: EXAMINATION: XR CHEST CLINICAL INFORMATION: Coughing up blood, shortness of breath on exertion. COMPARISON: CTA 08/17/2021. Chest radiograph 08/17/2021. TECHNIQUE: Frontal view of the chest was obtained. FINDINGS: No significant abnormality is noted involving the heart, lungs, mediastinum, bony thorax or soft tissues. XR/XR chest 1V IMPRESSION: Unremarkable examination. ? Dictated By: Rere Lawler Signed By: Electronically signed by Rere Lawler 10/13/[address] scan - chest: Attestation: I personally reviewed and interpreted this imaging study as follows: Radiologist's impression: EXAMINATION: CT ANGIOGRAM OF THE CHEST WITH AND WITHOUT CONTRAST (CT PULMONARY ANGIOGRAM FOR PE) CLINICAL INFORMATION: Reason for Exam SOB COMPARISON: Chest CTA 08/18/2019? TECHNIQUE: Prior to contrast administration, noncontrast localization images were obtained. ? Subsequently, multidetector volumetric imaging was performed from the thoracic inlet to below the diaphragms following the administration of 59 mL Omnipaque 350 intravenous contrast. No contrast reaction reported Sagittal, coronal, and MIP oblique sagittal reformatted images were obtained on the CT workstation, uploaded to PACS, and reviewed. This CT examination was performed using dose optimization techniques as appropriate, variously including the following: *Automated exposure control *Adjustment of mA and/or kV according to patient size (this includes techniques or standardized protocols for targeted exams where dose is matched to indication/reason for exam; i.e. extremities or head) *Use of iterative reconstruction technique Total exam dose-length product 199 mGy-cm FINDINGS: QUALITY OF STUDY/CONTRAST BOLUS: Satisfactory. PULMONARY ARTERIES: No central or segmental pulmonary emboli.? THORACIC AORTA: No aneurysm or dissection. LUNG: No focal consolidation, nodules or masses. PLEURA: No pleural effusion or pneumothorax. MEDIASTINUM: Normal heart size.? No pericardial effusion.? No hilar or mediastinal lymphadenopathy.? No evidence of septal bowing or right heart strain. CHEST WALL/AXILLA: No axillary or internal mammary lymphadenopathy. OSSEOUS STRUCTURES: No acute or suspicious osseous abnormality.? UPPER ABDOMEN: Unremarkable.? No reflux of contrast into the hepatic veins to suggest elevated right heart pressures. CT/CT angio chest PE protocol IMPRESSION: ? 1. No evidence of pulmonary embolus. 2. No acute pulmonary process identified. ? VTE: negative Dictated By: Edwin Chavez Signed By: Electronically signed by Elizabeth 10/13/21 2006 ECG Data ECG #1: Attestation: I personally reviewed and interpreted this ECG as follows: ECG interpretation date: 10/13/21 ECG interpretation time: 17:02 Prior ECG tracings: available for review Interpretation: Vent. Rate: 095 BPM ? ? Atrial Rate: 095 BPM P-R Int: 136 ms? QRS Dur: 084 ms QT Int: 348 ms ? ? ? P-R-T Axes: 081 060 061 degrees QTc Int: 437 ms ? Normal sinus rhythm Normal ECG When compared with ECG of 19-SEP-2021 17:02, No significant change was found DD/ 1412 Discharge Plan Discharge Clinical Impression: Costochondritis Patient Disposition: Home, Self-Care Instructions: Costochondritis (ED) Additional Instructions: Follow up with your primary care provider. Return to the emergency department immediately if your symptoms worsen or if you develop any dizziness, shortness of breath, difficulty breathing, chest pain, blurry vision, loss of vision, nausea, vomiting, abdominal pain, fever, chills, back pain, or any other complaints. Prescriptions: No Action riboflavin (vitamin B2) 100 mg tablet 400 mg PO DAILY 30 Days Qty: 120 2RF ibuprofen 600 mg tablet 600 mg PO Q6H PRN (Reason: pain) Qty: 30 0RF lorazepam [Ativan] 0.5 mg tablet 0.5 mg PO BID PRN (Reason: anxiety) 4 Days Qty: 8 0RF cholecalciferol (vitamin D3) 50 mcg (2,000 unit) tablet 50 mcg PO DAILY gabapentin 100 mg capsule 100 mg PO BEDTIME 30 Days Qty: 30 3RF metoprolol succinate 25 mg tablet extended release 24 hr 12.5 mg PO BID magnesium oxide 400 mg (241.3 mg magnesium) tablet 400 mg PO DAILY 30 Days Qty: 30 2RF amitriptyline 10 mg tablet 10 mg PO BEDTIME 30 Days Qty: 30 2RF Referrals: Luis Angel Adam MD [Primary Care Provider] - Interventions: ED Discharge Assessment Last Done: 10/13/21 20:27 Discharge Date/Time: 10/13/21 20:35 Print Language: Hungarian
[2021-10-13 16:31] LABS: D Dimer High Sensitivity 219 NG/ML
[2021-10-13] MEDS: iohexoL 350 MG/ML 100 ML INFUS..BTL IV (19:03)
== END 2021-10-13 20:35 | disposition home or self-care (01) ==
PROVIDERS: Physician Assistant Medical; Emergency Provider Internal Medicine; PCP Internal Medicine
DX: M94.0 Chondrocostal junction syndrome [Tietze] (principal); Z87.891 Personal history of nicotine dependence
CPT/HCPCS: 36415; 71045; 71275; 80053; 81003; 81025; 84484; 85025; 85379; 93005; 99283; 99284; Q9967

== ENCOUNTER 2021-10-20 18:05 | Emergency (ER) | payer OTHER, SELFPAY ==
--- NOTE | ~2021-10-20 | XR_ITS ---
EXAMINATION: XR CHEST CLINICAL INFORMATION: Chest pain COMPARISON: Multiple priors with the last chest x-ray and chest CT of 10/13/2021 TECHNIQUE: Frontal view of the chest was obtained. FINDINGS: No significant abnormality is noted involving the heart, lungs, mediastinum, bony thorax or soft tissues. XR/XR chest 1V IMPRESSION: No acute pulmonary process. Unremarkable examination.
--- NOTE | 2021-10-20 18:11 | ECG_ITS ---
Test Reason : CHEST PAIN Blood Pressure : / mmHG Vent. Rate : 094 BPM Atrial Rate : 094 BPM P-R Int : 140 ms QRS Dur : 080 ms QT Int : 328 ms P-R-T Axes : 073 031 051 degrees QTc Int : 410 ms Normal sinus rhythm Normal ECG When compared with ECG of 13-OCT-2021 14:12, No significant change was found Referred By: Generic ED Physician Electronically Signed By:SEAN HAGAN MD
[2021-10-20 18:17] VITALS: BP 109/76; PULSE 94; RESP 18; TEMP 36.6; O2SAT 98; BMI 27.8
[2021-10-20 18:30] LABS: MANUAL DIFF FLAG NO
[2021-10-20 18:32] LABS: Basophils Absolute Auto 0.1 X10*3/uL (0.0-0.2); Basophils Percent Auto 0.5 % (0-2); Eosinophils Absolute Auto 0.2 X10*3/uL (0.0-0.4); Eosinophils Percent Auto 1.4 % (0-4); Hematocrit 36.4 % (37.0-47.0); Hemoglobin 11.8 g/dl (12.0-16.0); Imm Gran Abs Auto 0.02 X10*3/uL (0.00-0.03); Imm Gran Pct Auto 0.2 % (0.0-0.4); Lymphocytes Absolute Auto 2.5 X10*3/uL (1.2-4.9); Mean Corpuscular HGB Conc 32.4 g/dl (31.0-35.0); Mean Corpuscular Hemoglobin 26.8 pg (27.0-33.0); Mean Corpuscular Volume 82.5 fL (80.0-98.0); Mean Platelet Volume 9.8 fL (9.4-12.3); Monocytes Absolute Auto 0.8 X10*3/uL (0.1-1.2); Monocytes Percent Auto 7.3 % (2-11); Neutrophils Absolute Auto 6.9 x10*3/uL (2.0-8.3); Neutrophils Percent Auto 66.6 % (45-73); Platelet Count 281 X10*3/uL (160-400); Red Blood Count 4.41 X10*6/uL (4.20-5.50); Red Cell Distribution Width 14.3 % (11.0-16.0); White Blood Count 10.4 X10*3/uL (4.8-10.8)
[2021-10-20 18:46] LABS: Anion Gap 14 (12-20); Blood Urea Nitrogen 13 mg/dL (9-16); Calcium 10.2 mg/dL (8.4-10.2); Carbon Dioxide 24 mmol/L (22-29); Chloride 104 mmol/L (96-108); Creatinine Clr Calc Pharmacy 95.6; Estimated Glomerular Filt Rate > 60; Glucose Random 88 mg/dL (60-115); Potassium 4.2 mmol/L (3.3-5.1); Sodium 138 mmol/L (135-145)
[2021-10-20 18:50] LABS: COVID-19 Test Negative (Negative)
[2021-10-20 18:53] LABS: Troponin-I High Sensitivity < 3.5 ng/L (<3.5-17.0)
--- NOTE | 2021-10-20 19:50 | ED_ITS ---
HPI - Chest Pain General Chief Complaint: Chest Pain Stated Complaint: Chest pain, fatigue Time Seen by Provider: 10/20/21 19:50 Source: patient Mode of arrival: ambulatory History of Present Illness HPI narrative: This is a 25-year-old female who presents with complaints fatigue for 1 week and continued concerns regarding shortness of as well as chest pain and heart palpitations. 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 Patient denies any suicidal homicidal ideations and states ?time already on medication and some a therapist yesterday?. Patient is concerned that she may have atrial fibrillation. Patient reports that she has difficulty getting out of bed and getting through the day. Related Data Home Medications Medication Instructions Recorded Confirmed cholecalciferol (vitamin D3) 50 50 mcg PO DAILY 09/28/21 10/12/21 mcg (2,000 unit) tablet metoprolol succinate 25 mg 12.5 mg PO BID 10/12/21 10/12/21 tablet,extended release 24 hr Previous Rx's Medication Instructions Recorded ibuprofen 600 mg tablet 600 mg PO Q6H PRN pain #30 tabs 08/17/21 lorazepam 0.5 mg tablet (Ativan) 0.5 mg PO BID PRN anxiety 4 days 09/08/21 #8 tabs gabapentin 100 mg capsule 100 mg PO BEDTIME 30 days #30 caps 09/28/21 amitriptyline 10 mg tablet 10 mg PO BEDTIME 30 days #30 tabs 10/12/21 magnesium oxide 400 mg (241.3 mg 400 mg PO DAILY 30 days #30 tabs 10/12/21 magnesium) tablet riboflavin (vitamin B2) 100 mg 400 mg PO DAILY 30 days #120 tabs 10/12/21 tablet Allergies Allergy/AdvReac Type Severity Reaction Status Date / Time vancomycin Allergy Swelling Verified 10/20/21 18:16 Review of Systems Review of Systems: Pertinent positives and negatives as stated in HPI 10 point review of systems is otherwise negative. [facility] Past Medical History Source: nursing notes reviewed Medical History Asthma PFO (patent foramen ovale) Surgical History No pertinent past surgical history Family History Family History Father Stomach cancer Mother DM (diabetes mellitus) Cancer HTN (hypertension) Hypercholesteremia Social History Social History Household Members: Family Alcohol intake: former Patient Tobacco Use Status: Former Tobacco user Advance Directives: No Current occupational status: unemployed Physical Exam Vital Signs: Vital Signs: Last Vital Signs Temp 97.8 F 10/20/21 18:17 Pulse 94 10/20/21 18:17 Resp 18 10/20/21 18:17 BP 109/76 10/20/21 18:17 Pulse Ox 98 10/20/21 18:17 O2 Del Method 10/20/21 18:17 BMI result Body Mass Index 27.8 VITAL SIGNS: Reviewed. GENERAL: Well developed, well nourished, in no acute distress. HEAD: Normocephalic/atraumatic EYES: PERRLA, EOMI EARS: Ext canals without abnormality OROPHARYNX: no oral lesions noted, posterior pharynx clear LUNGS: Normal breath sounds with, no wheeze/rhonchi/rales, no tachypnea or increased work of breathing noted. SpO2<98> CARDIOVASCULAR: Regular rate and rhythm without noted murmurs, no JVD or lower extremity edema. ABDOMEN: Soft, non-tender, non-distended with bowel sounds. MUSCULOSKELETAL: No tenderness, deformities, or effusions noted on gross inspection. EXTREMITIES: No cyanosis, clubbing or edema. SKIN: Inspection of the skin reveals no rashes NEUROLOGIC: Alert and oriented x 4. Strength and sensation to light touch were grossly intact x 4. Course Course Course Narrative: 25-year-old female with history and clinical presentation consistent with anxiety and on review of prior visits ESR, D-dimer, CT angio for PE has already been completed as well as a TSH level. I did discuss with the patient that it would seem she may be experiencing increase in depression and has a therapist that she follows up with and denies any suicidal homicidal ideations. On review of all investigations there are no acute changes since her visit on 10/13. I would recommend that patient start taking iron supplementation that is available [id number]. She was reassured and discharged home in stable condition with recommendation to follow-up with her primary care provider for further workup. MDM - Chest Pain Lab Data Result diagrams: 10/20/21 18:22 08/05/22 18:22 Labs: Lab Results 10/20/21 10/20/21 10/20/21 Range/Units 18:22 18:22 18:22 WBC 10.4 (4.8-10.8) X10*3/uL RBC 4.41 (4.20-5.50) X10*6/uL Hgb 11.8 L (12.0-16.0) g/dl Hct 36.4 L (37.0-47.0) % MCV 82.5 (80.0-98.0) fL MCH 26.8 L (27.0-33.0) pg MCHC 32.4 (31.0-35.0) g/dl RDW 14.3 (11.0-16.0) % Plt Count 281 (160-400) X10*3/uL MPV 9.8 (9.4-12.3) fL Immature Gran % (Auto) 0.2 (0.0-0.4) % Neut % (Auto) 66.6 (45-73) % Lymph % (Auto) 24.0 (20-40) % [place] % (Auto) 7.3 (2-11) % Eos % (Auto) 1.4 (0-4) % Baso % (Auto) 0.5 (0-2) % Lymph # (Auto) 2.5 (1.2-4.9) X10*3/uL [place] # (Auto) 0.8 (0.1-1.2) X10*3/uL Eos # (Auto) 0.2 (0.0-0.4) X10*3/uL Baso # (Auto) 0.1 (0.0-0.2) X10*3/uL Abs Immat Gran (auto) 0.02 (0.00-0.03) X10*3/uL Absolute Neuts (auto) 6.9 (2.0-8.3) x10*3/uL Absolute Nucleated RBC 0.000 (0.0-0.012) X10*3/uL Nucleated RBC % (auto) 0.0 (0.0-0.2) /100WBC Sodium 138 (135-145) mmol/L Potassium 4.2 (3.3-5.1) mmol/L Chloride 104 (96-108) mmol/L Carbon Dioxide 24 (22-29) mmol/L Anion Gap 14 (12-20) BUN 13 D (9-16) mg/dL Creatinine 0.85 (0.5-1.4) mg/dL Estim Creat Clear Calc 95.6 Estimated GFR > 60 Random Glucose 88 (60-115) mg/dL Calcium 10.2 (8.4-10.2) mg/dL Troponin I High Sens < 3.5 (<3.5-17.0) ng/L COVID-19 (MARILYNN) (Negative) COVID-19 Clin Com 10/20/21 Range/Units 18:22 WBC (4.8-10.8) X10*3/uL RBC (4.20-5.50) X10*6/uL Hgb (12.0-16.0) g/dl Hct (37.0-47.0) % MCV (80.0-98.0) fL MCH (27.0-33.0) pg MCHC (31.0-35.0) g/dl RDW (11.0-16.0) % Plt Count (160-400) X10*3/uL MPV (9.4-12.3) fL Immature Gran % (Auto) (0.0-0.4) % Neut % (Auto) (45-73) % Lymph % (Auto) (20-40) % [place] % (Auto) (2-11) % Eos % (Auto) (0-4) % Baso % (Auto) (0-2) % Lymph # (Auto) (1.2-4.9) X10*3/uL [place] # (Auto) (0.1-1.2) X10*3/uL Eos # (Auto) (0.0-0.4) X10*3/uL Baso # (Auto) (0.0-0.2) X10*3/uL Abs Immat Gran (auto) (0.00-0.03) X10*3/uL Absolute Neuts (auto) (2.0-8.3) x10*3/uL Absolute Nucleated RBC (0.0-0.012) X10*3/uL Nucleated RBC % (auto) (0.0-0.2) /100WBC Sodium (135-145) mmol/L Potassium (3.3-5.1) mmol/L Chloride (96-108) mmol/L Carbon Dioxide (22-29) mmol/L Anion Gap (12-20) BUN (9-16) mg/dL Creatinine (0.5-1.4) mg/dL Estim Creat Clear Calc Estimated GFR Random Glucose (60-115) mg/dL Calcium (8.4-10.2) mg/dL Troponin I High Sens (<3.5-17.0) ng/L COVID-19 (MARILYNN) Negative (Negative) COVID-19 Clin Com See Note ECG Data ECG #1: Attestation: I personally reviewed and interpreted this ECG as follows: Prior ECG tracings: available for review Interpretation: Normal sinus rhythm, HR-94, no STEMI, WV/QRS/QTC are within normal limits. Discharge Plan Discharge Clinical Impression: Fatigue, Shortness of breath Patient Disposition: Home, Self-Care Instructions: Fatigue (ED), Anemia (ED) Additional Instructions: 1. Resume all home medications. 2. Follow-up with your primary care provider by calling her office on Saturday morning and setting up an appointment for further workup and evaluation. 3. Recommend starting [id number] iron supplementation, I would only recommend that you start with 1 pill a day until you are evaluated by your primary care provider. This will change the collar of your poop. Please do not become alarmed. Return to the ER for acute worsening of your symptoms. Prescriptions: No Action riboflavin (vitamin B2) 100 mg tablet 400 mg PO DAILY 30 Days Qty: 120 2RF ibuprofen 600 mg tablet 600 mg PO Q6H PRN (Reason: pain) Qty: 30 0RF lorazepam [Ativan] 0.5 mg tablet 0.5 mg PO BID PRN (Reason: anxiety) 4 Days Qty: 8 0RF cholecalciferol (vitamin D3) 50 mcg (2,000 unit) tablet 50 mcg PO DAILY gabapentin 100 mg capsule 100 mg PO BEDTIME 30 Days Qty: 30 3RF metoprolol succinate 25 mg tablet extended release 24 hr 12.5 mg PO BID magnesium oxide 400 mg (241.3 mg magnesium) tablet 400 mg PO DAILY 30 Days Qty: 30 2RF amitriptyline 10 mg tablet 10 mg PO BEDTIME 30 Days Qty: 30 2RF Referrals: Ashok Adam DO [Primary Care Provider] - (Patient seen for fatigue, recommendation for [id number] iron pills and cautioned that it would change the color of her stool.)
[2021-10-20 21:19] VITALS: BP 115/72; PULSE 96; RESP 14; TEMP 35.9; O2SAT 100
== END 2021-10-20 21:23 | disposition home or self-care (01) ==
PROVIDERS: Emergency Provider Student in an Organized Health Care Education/Training Program; PCP Student in an Organized Health Care Education/Training Program
DX: R07.89 Other chest pain (principal); R53.83 Other fatigue; R06.02 Shortness of breath; Z20.822 Contact with and (suspected) exposure to COVID-19; Z79.899 Other long term (current) drug therapy; Z87.891 Personal history of nicotine dependence
CPT/HCPCS: 36415; 71045; 80048; 84484; 85025; 86140; 87635; 93005; 99284

== ENCOUNTER → 2021-10-27 07:59 | Outpatient (BNVA) | payer OTHER, SELFPAY | PROVIDERS: PCP Student in an Organized Health Care Education/Training Program; Visit Provider Nurse Practitioner Family | DX: R51.9 Headache, unspecified (principal); R20.0 Anesthesia of skin; F41.9 Anxiety disorder, unspecified | CPT/HCPCS: 99212 ==

== ENCOUNTER 2021-11-05 11:29 | Emergency (ER) | payer OTHER, SELFPAY ==
[2021-11-05 12:43] VITALS: BP 106/71; PULSE 89; RESP 16; TEMP 36.7; O2SAT 99; BMI 27.6
--- NOTE | 2021-11-05 12:47 | ECG_ITS ---
Test Reason : DIZZINESS Blood Pressure : / mmHG Vent. Rate : 084 BPM Atrial Rate : 084 BPM P-R Int : 138 ms QRS Dur : 080 ms QT Int : 348 ms P-R-T Axes : 074 047 057 degrees QTc Int : 411 ms Normal sinus rhythm Normal ECG When compared with ECG of 20-OCT-2021 18:19, No significant change was found Referred By: Generic ED Physician Electronically Signed By:YENY VIVAS
[2021-11-05 13:01] LABS: MANUAL DIFF FLAG NO
[2021-11-05 13:02] LABS: Basophils Percent Auto 0.6 % (0-2); Eosinophils Absolute Auto 0.1 X10*3/uL (0.0-0.4); Eosinophils Percent Auto 1.9 % (0-4); Hematocrit 37.5 % (37.0-47.0); Hemoglobin 12.2 g/dl (12.0-16.0); Imm Gran Abs Auto 0.01 X10*3/uL (0.00-0.03); Imm Gran Pct Auto 0.1 % (0.0-0.4); Lymphocytes Absolute Auto 1.6 X10*3/uL (1.2-4.9); Lymphocytes Percent Auto 21.9 % (20-40); Mean Corpuscular HGB Conc 32.5 g/dl (31.0-35.0); Mean Corpuscular Hemoglobin 27.1 pg (27.0-33.0); Mean Corpuscular Volume 83.3 fL (80.0-98.0); Mean Platelet Volume 9.8 fL (9.4-12.3); Monocytes Absolute Auto 0.5 X10*3/uL (0.1-1.2); Monocytes Percent Auto 6.6 % (2-11); Neutrophils Percent Auto 68.9 % (45-73); Platelet Count 251 X10*3/uL (160-400); Red Cell Distribution Width 14.3 % (11.0-16.0); White Blood Count 7.3 X10*3/uL (4.8-10.8)
[2021-11-05 13:15] LABS: Appearance Urine Clear; Color Urine Yellow; Glucose Urine UA Negative (Negative); Leukocyte Esterase Urine Negative (Negative); Nitrite Urine Negative (Negative); Urine Blood Negative (Negative); Urine Ketones Negative (Negative); Urine Protein Negative (Neg-Trace)
[2021-11-05 13:16] LABS: UPreg QC Valid YES; Urine Pregnancy NEGATIVE (NEGATIVE)
[2021-11-05 13:19] LABS: Anion Gap 14 (12-20); Blood Urea Nitrogen 13 mg/dL (9-16); Carbon Dioxide 25 mmol/L (22-29); Chloride 104 mmol/L (96-108); Estimated Glomerular Filt Rate > 60; Glucose Random 93 mg/dL (60-115); Potassium 4.1 mmol/L (3.3-5.1); Sodium 139 mmol/L (135-145)
[2021-11-05 13:19] LABS: COVID-19 Test Negative (Negative)
--- NOTE | 2021-11-05 16:57 | ED_ITS ---
HPI - Nausea/Vomiting/Diarrhea General Chief complaint: Nausea/Vomiting/Diarrhea Stated complaint: Chest pain, Vomiting, Numbness in face Time Seen by Provider: 11/05/21 16:45 Source: patient and old records reviewed Mode of arrival: ambulatory Limitations: no limitations History of Present Illness HPI Narrative: 25-year-old female with a history of anxiety, headaches, costochondritis, palpitations, asthma and history of recurrent chest pain who presents to the ER for epigastric abdominal pain that radiates into her chest for the last 3 days. She has been nauseous and vomited multiple times yesterday. She has not vomited yet today. She has had some loose stools. She states the pain is worse after she eats. It is sharp and burning in nature. She states her ribs are sore in chest is sore from vomiting yesterday. It is worse when she touches her chest wall. She has been taking Aleve 2-3 times per day for headaches. She does not drink alcohol. She has been taking Protonix and Tums with no improvement in her pains. MD elicited complaint: nausea, vomiting and abdominal pain Onset (ago): day(s) (3) Description of diarrhea: semi-solid and loose Associated nausea: Yes Associated abdominal pain: Yes Location of pain: epigastric Pain consistency: intermittent Severity: moderate Pain scale (0-10): 7 Quality: sharp Exacerbating factors: eating Relieving factors: none Associated symptoms: chest pain, headaches, loss of appetite, malaise and nausea/vomiting Treatment prior to arrival: NSAIDs and other OTC medicine Related Data Home Medications Medication Instructions Recorded Confirmed cholecalciferol (vitamin D3) 50 50 mcg PO DAILY 09/28/21 10/12/21 mcg (2,000 unit) tablet metoprolol succinate 25 mg 12.5 mg PO BID 10/12/21 10/12/21 tablet,extended release 24 hr Previous Rx's Medication Instructions Recorded ibuprofen 600 mg tablet 600 mg PO Q6H PRN pain #30 tabs 08/17/21 lorazepam 0.5 mg tablet (Ativan) 0.5 mg PO BID PRN anxiety 4 days 09/08/21 #8 tabs magnesium oxide 400 mg (241.3 mg 400 mg PO DAILY 30 days #30 tabs 10/12/21 magnesium) tablet ondansetron 4 mg disintegrating 4 mg PO Q8H PRN nausea and 11/05/21 tablet vomiting #7 tabs sucralfate 1 gram tablet (Carafate) 1 g PO BID #30 tabs 11/05/21 Allergies Allergy/AdvReac Type Severity Reaction Status Date / Time vancomycin Allergy Swelling Verified 10/27/21 08:06 Review of Systems Review of Systems: Constitutional: No Fever, No Chills ENT/Mouth: No sore throat, No Rhinorrhea, No Swallowing Difficulty Eyes: No Eye Pain, No Swelling, No Redness Cardiovascular: + Chest Pain, No SOB, No Orthopnea, No Edema, +palpitations Respiratory: No Cough, No Sputum, No Wheezing, No dyspnea Gastrointestinal: + Nausea, + Vomiting, + Diarrhea, + abdominal Pain, No Hematochezia, No Melena Genitourinary: No Dysuria, No Urinary Frequency, No Hematuria Musculoskeletal: No joint pain, No Myalgias Skin: No Skin Lesions, No rash Neuro: No Weakness, No Numbness, No Dizziness, No Headache Psych: + Anxiety/Panic, No Depression Heme/Lymph: No Bruising, No Lymphadenopathy Endocrine: No Polyuria, No Polydipsia Gastrointestinal: Gastrointestinal: Reports nausea PMFSH Past Medical History Medical History Asthma PFO (patent foramen ovale) Surgical History No pertinent past surgical history Family History Family History Father Stomach cancer Mother DM (diabetes mellitus) Cancer HTN (hypertension) Hypercholesteremia Social History Social History Household Members: Family Alcohol intake: former Patient Tobacco Use Status: Former Tobacco user Advance Directives: No Advance Directives Information Provided: No Current occupational status: unemployed Physical Exam Vital Signs: Vital Signs: Last Vital Signs Temp 98.2 F 11/05/21 17:00 Pulse 79 11/05/21 17:00 Resp 20 11/05/21 17:00 BP 102/63 11/05/21 17:00 Pulse Ox 100 11/05/21 17:00 O2 Del Method 11/05/21 17:00 BMI result Body Mass Index 27.6 Appearance: Alert. Oriented X3. No acute distress. Eyes: Pupils equal, round and reactive to light. ENT: Pharynx normal. Neck: Normal inspection. Neck supple. CVS: Normal heart rate and rhythm. Pulses normal. Mild tenderness of the anterior chest wall. Respiratory: No respiratory distress. Breath sounds normal. Abdomen: Soft wtih mild epigastric tenderness, no RUQ tenderness. +BS x4 Skin: Skin warm and dry. Normal skin color. Normal skin turgor. No rashes. Extremities: No lower extremity edema. Neuro: Oriented X 3. No motor deficit. No sensory deficit. Course Course Course Narrative: 25-year-old female presenting to the ER for evaluation of epigastric pain, vomiting and chest pain. Symptoms have been present for the last 3 days. Upon review of her chart she has several visits to the ER for atypical chest pain in the past. She is on metoprolol for history of palpitations. On arrival to the ER today she appears well, her vital signs are normal. Her abdominal exam is benign, soft with very mild epigastric tenderness only. Normal bowel sounds. Suspect she has gastritis from taking multiple doses of Aleve daily. She denies any signs or symptoms of GI bleeding. Her labs that were done in triage are u nremarkable. Will add LFTs. Doubt acute cholecystitis. She is also asking for cardiac enzymes to be drawn given her chest pains. Her EKG was reviewed and is normal without any ischemic changes. Will add troponin on to her previously drawn labs. Reevaluation(s) Reevaluation #1: Troponin is negative. LFTs are normal. Will treat for gastritis and have her follow-up with GI. Will increase her PPI to b.i.d. for 2 weeks and add Carafate. Will give her p.r.n. Zofran as well. Diet provided for gastritis and ulcers. She is stable for discharge home with outpatient follow-up. MDM - Nausea/Vomiting/Diarrhea Medical Records Attestation: I reviewed the patient's medical records. Lab Data Attestation: I reviewed the patient's lab results. Result diagrams: 11/05/21 12:57 11/05/21 12:57 Labs: Lab Results 11/05/21 11/05/21 11/05/21 Range/Units 12:54 12:54 12:54 WBC (4.8-10.8) X10*3/uL RBC (4.20-5.50) X10*6/uL Hgb (12.0-16.0) g/dl Hct (37.0-47.0) % MCV (80.0-98.0) fL MCH (27.0-33.0) pg MCHC (31.0-35.0) g/dl RDW (11.0-16.0) % Plt Count (160-400) X10*3/uL MPV (9.4-12.3) fL Immature Gran % (Auto) (0.0-0.4) % Neut % (Auto) (45-73) % Lymph % (Auto) (20-40) % [place] % (Auto) (2-11) % Eos % (Auto) (0-4) % Baso % (Auto) (0-2) % Lymph # (Auto) (1.2-4.9) X10*3/uL [place] # (Auto) (0.1-1.2) X10*3/uL Eos # (Auto) (0.0-0.4) X10*3/uL Baso # (Auto) (0.0-0.2) X10*3/uL Abs Immat Gran (auto) (0.00-0.03) X10*3/uL Absolute Neuts (auto) (2.0-8.3) x10*3/uL Absolute Nucleated RBC (0.0-0.012) X10*3/uL Nucleated RBC % (auto) (0.0-0.2) /100WBC Sodium (135-145) mmol/L Potassium (3.3-5.1) mmol/L Chloride (96-108) mmol/L Carbon Dioxide (22-29) mmol/L Anion Gap (12-20) BUN (9-16) mg/dL Creatinine (0.5-1.4) mg/dL Estim Creat Clear Calc Estimated GFR Random Glucose (60-115) mg/dL Calcium (8.4-10.2) mg/dL Total Bilirubin (0.0-1.0) mg/dL Direct Bilirubin (0.0-0.5) mg/dL AST (5-31) U/L ALT (0-31) U/L Alkaline Phosphatase (39-117) U/L Troponin I High Sens (<3.5-17.0) ng/L Total Protein (6.5-8.0) g/dL Albumin (3.5-5.0) g/dL Urine Color Yellow Urine Appearance Clear Urine pH 6.0 (5.0-8.0) Ur Specific [place] 1.010 (1.005-1.025) Urine Protein Negative (Neg-Trace) mg/dL Urine Glucose (UA) Negative (Negative) mg/dL Urine Ketones Negative (Negative) mg/dL Urine Blood Negative (Negative) Urine Nitrite Negative (Negative) Ur Leukocyte Esterase Negative (Negative) Urine Test NEGATIVE (NEGATIVE) COVID-19 (MARILYNN) Negative (Negative) COVID-19 Clin Com See Note 11/05/21 11/05/21 11/05/21 Range/Units 12:57 12:57 12:57 WBC 7.3 (4.8-10.8) X10*3/uL RBC 4.50 (4.20-5.50) X10*6/uL Hgb 12.2 (12.0-16.0) g/dl Hct 37.5 (37.0-47.0) % MCV 83.3 (80.0-98.0) fL MCH 27.1 (27.0-33.0) pg MCHC 32.5 (31.0-35.0) g/dl RDW 14.3 (11.0-16.0) % Plt Count 251 (160-400) X10*3/uL MPV 9.8 (9.4-12.3) fL Immature Gran % (Auto) 0.1 (0.0-0.4) % Neut % (Auto) 68.9 (45-73) % Lymph % (Auto) 21.9 (20-40) % [place] % (Auto) 6.6 (2-11) % Eos % (Auto) 1.9 (0-4) % Baso % (Auto) 0.6 (0-2) % Lymph # (Auto) 1.6 (1.2-4.9) X10*3/uL [place] # (Auto) 0.5 (0.1-1.2) X10*3/uL Eos # (Auto) 0.1 (0.0-0.4) X10*3/uL Baso # (Auto) 0.0 (0.0-0.2) X10*3/uL Abs Immat Gran (auto) 0.01 (0.00-0.03) X10*3/uL Absolute Neuts (auto) 5.0 (2.0-8.3) x10*3/uL Absolute Nucleated RBC 0.000 (0.0-0.012) X10*3/uL Nucleated RBC % (auto) 0.0 (0.0-0.2) /100WBC Sodium 139 (135-145) mmol/L Potassium 4.1 (3.3-5.1) mmol/L Chloride 104 (96-108) mmol/L Carbon Dioxide 25 (22-29) mmol/L Anion Gap 14 (12-20) BUN 13 (9-16) mg/dL Creatinine 0.78 (0.5-1.4) mg/dL Estim Creat Clear Calc 104.0 Estimated GFR > 60 Random Glucose 93 (60-115) mg/dL Calcium 10.0 (8.4-10.2) mg/dL Total Bilirubin 0.5 (0.0-1.0) mg/dL Direct Bilirubin 0.2 (0.0-0.5) mg/dL AST 14 (5-31) U/L ALT 7 (0-31) U/L Alkaline Phosphatase 58 (39-117) U/L Troponin I High Sens < 3.5 (<3.5-17.0) ng/L Total Protein 7.9 (6.5-8.0) g/dL Albumin 4.6 (3.5-5.0) g/dL Urine Color Urine Appearance Urine pH (5.0-8.0) Ur Specific [place] (1.005-1.025) Urine Protein (Neg-Trace) mg/dL Urine Glucose (UA) (Negative) mg/dL Urine Ketones (Negative) mg/dL Urine Blood (Negative) Urine Nitrite (Negative) Ur Leukocyte Esterase (Negative) Urine Test (NEGATIVE) COVID-19 (MARILYNN) (Negative) COVID-19 Clin Com ECG Data Attestation: I personally reviewed and interpreted this ECG as follows: ECG interpretation date: 11/05/21 Prior ECG tracings: available for review Interpretation: Normal sinus rhythm, ventricular rate 84 beats per minute, normal MO interval, normal QTC, no ST segment elevations or depressions. No change from prior. Critical Care Time Critical Care Time Critical Care Time: No Discharge Plan Discharge Clinical Impression: Gastritis Patient Disposition: Home, Self-Care Instructions: Gastritis (ED), Diet for Stomach Ulcers and Gastritis (ED) Additional Instructions: Your lab workup today was unremarkable. Your pain is most likely due to gastritis which is and irritation and inflammation of your stomach lining. Start taking the prescribed medication as directed for this. Stick to a bland diet. Avoid foods high in acid, avoid alcohol and NSAID medications like Aleve, Motrin, Advil or ibuprofen. Follow up with your doctor as needed. Follow up with GI doctor if you symptoms persist despite dietary modifications and medication. If you develop new or worsening symptoms call 911 or come back to the ER for further evaluation. Prescriptions: New sucralfate [Carafate] 1 gram tablet 1 g PO BID Qty: 30 0RF ondansetron 4 mg tablet,disintegrating 4 mg PO Q8H PRN (Reason: nausea and vomiting) Qty: 7 0RF No Action ibuprofen 600 mg tablet 600 mg PO Q6H PRN (Reason: pain) Qty: 30 0RF lorazepam [Ativan] 0.5 mg tablet 0.5 mg PO BID PRN (Reason: anxiety) 4 Days Qty: 8 0RF cholecalciferol (vitamin D3) 50 mcg (2,000 unit) tablet 50 mcg PO DAILY metoprolol succinate 25 mg tablet extended release 24 hr 12.5 mg PO BID magnesium oxide 400 mg (241.3 mg magnesium) tablet 400 mg PO DAILY 30 Days Qty: 30 2RF Referrals: Katrin Raphael MD [Physician] - (epigastric pain) Interventions: ED Discharge Assessment Last Done: 11/05/21 18:13 Discharge Date/Time: 11/05/21 18:13
[2021-11-05 17:00] VITALS: BP 102/63; PULSE 79; RESP 20; TEMP 36.8; O2SAT 100
[2021-11-05 17:48] LABS: Troponin-I High Sensitivity < 3.5 ng/L (<3.5-17.0)
[2021-11-05 17:56] LABS: Alanine Aminotransferase 7 U/L (0-31); Albumin Level 4.6 g/dL (3.5-5.0); Alkaline Phosphatase 58 U/L (39-117); Aspartate Amino Transferase 14 U/L (5-31); Bilirubin Direct 0.2 mg/dL (0.0-0.5); Bilirubin Total 0.5 mg/dL (0.0-1.0); Total Protein 7.9 g/dL (6.5-8.0)
== END 2021-11-05 18:13 | disposition home or self-care (01) ==
PROVIDERS: Physician Assistant; Emergency Provider Emergency Medicine; PCP Student in an Organized Health Care Education/Training Program
DX: K29.70 Gastritis, unspecified, without bleeding (principal); R42 Dizziness and giddiness; R51.9 Headache, unspecified; R07.89 Other chest pain; Z20.822 Contact with and (suspected) exposure to COVID-19; Z87.891 Personal history of nicotine dependence
CPT/HCPCS: 80048; 80076; 81003; 81025; 84484; 85025; 87635; 93005; 99283

== ENCOUNTER 2021-11-11 17:04 | Emergency (ER) | payer OTHER, SELFPAY ==
--- NOTE | ~2021-11-11 | US_ITS ---
EXAMINATION: US VENOUS WITH DOPPLER UPPER EXTREMITY, right upper extremity CLINICAL INFORMATION: Pain and swelling COMPARISON: None TECHNIQUE: Ultrasound of the upper extremity is performed using compression sonography and color and pulse Doppler flow with assessment of augmentation of flow. There is also imaging and Doppler assessment of the jugular and subclavian veins. Spectral analysis with color-flow imaging is performed. FINDINGS: Respiratory variation, normal compression, and augmented flow are noted throughout the upper extremity including the axillary, brachial, cubital, and radial and ulnar veins. There is normal flow in the internal jugular and subclavian veins. There is no visible deep or superficial thrombophlebitis. If the patient's symptoms progress, a followup ultrasound in 5 -7 days might be of value to exclude proximal propagation from a nonvisualized distal arm vein. US/US venous duplex UE RT IMPRESSION: No DVT demonstrated in the right upper extremity
[2021-11-11 17:41] VITALS: BP 117/83; PULSE 93; RESP 17; TEMP 37; O2SAT 100; BMI 27.6
--- NOTE | 2021-11-11 18:28 | ED.EXTPRO ---
HPI - Extremity Problem General Chief complaint: Extremity Injury, Upper Stated complaint: ?dvt on R arm/SOB Source: patient Mode of arrival: ambulatory Limitations: no limitations History of Present Illness HPI Narrative: 25-year-old female presents for right arm pain and the lumps to multiple IV start sites. States that she has had multiple ED visits for dehydration, abdominal pain, and that she has concerns regarding blood clots to the IV sites because her father has a history of clotting factor deficiencies. She states that the pain shoots up her arm at multiple sites, and ends up in her shoulder. She states to have shortness of breath and pain on inspiration at times to the right-sided upper back. She does report fevers, chills, chest pain or pressure, palpitations, abdominal distention, dysuria, hematuria, or edema. She does not report swelling in the extremity or loss of sensation or loss of range of motion. MD Complaint: extremity pain Onset (ago): day(s) (3) Pain Consistency: intermittent Location: right and upper extremity Severity scale (1-10): 7 Quality: stabbing and sharp Radiation: proximal Relieving factors: nothing Exacerbating factors: palpation Associated symptoms: shortness of breath Related Data Home Medications Medication Instructions Recorded Confirmed cholecalciferol (vitamin D3) 50 50 mcg PO DAILY 09/28/21 10/12/21 mcg (2,000 unit) tablet metoprolol succinate 25 mg 12.5 mg PO BID 10/12/21 10/12/21 tablet,extended release 24 hr Previous Rx's Medication Instructions Recorded ibuprofen 600 mg tablet 600 mg PO Q6H PRN pain #30 tabs 08/17/21 lorazepam 0.5 mg tablet (Ativan) 0.5 mg PO BID PRN anxiety 4 days 09/08/21 #8 tabs magnesium oxide 400 mg (241.3 mg 400 mg PO DAILY 30 days #30 tabs 10/12/21 magnesium) tablet ondansetron 4 mg disintegrating 4 mg PO Q8H PRN nausea and 11/05/21 tablet vomiting #7 tabs sucralfate 1 gram tablet (Carafate) 1 g PO BID #30 tabs 11/05/21 Allergies Allergy/AdvReac Type Severity Reaction Status Date / Time vancomycin Allergy Swelling Verified 11/11/21 17:46 Review of Systems Review of Systems: Constitutional: No Fever, No Chills ENT/Mouth: No Ear Pain, No Hoarseness, No sore throat Eyes: No Eye Pain, No Swelling, No Redness, No Foreign Body Cardiovascular: No Chest Pain, No SOB Respiratory: No Cough, No Dyspnea Gastrointestinal: No Nausea, No Vomiting, No Diarrhea, No abdominal Pain Genitourinary: No Dysuria, No Hematuria Musculoskeletal: positive right arm and right upper back pain, No Myalgias, No Joint Swelling Skin: No Skin lacerations, No rash Neuro: No Weakness, No Numbness, No Paresthesias, No Loss of Consciousness, No Dizziness, No Headache Psych: No Anxiety/Panic, No Depression Heme/Lymph: no easy bruising, no Lymphadenopathy Endocrine: No Polyuria, No Polydipsia Yes all other systems are reviewed and are negative [facility] Past Medical History Attestation statement: The following information was validated with the patient. Source: old records reviewed Medical History Asthma PFO (patent foramen ovale) Surgical History No pertinent past surgical history Family History Family History Father Stomach cancer Mother DM (diabetes mellitus) Cancer HTN (hypertension) Hypercholesteremia Social History Social History Household Members: Family Alcohol intake: former Patient Tobacco Use Status: Former Tobacco user Advance Directives: No Advance Directives Information Provided: No Current occupational status: unemployed Physical Exam Vital Signs: Vital Signs: Last Vital Signs Temp 98.6 F 11/11/21 17:41 Pulse 97 11/11/21 20:49 Resp 18 11/11/21 20:49 BP 113/87 11/11/21 20:49 Pulse Ox 100 11/11/21 20:49 O2 Del Method 11/11/21 20:49 BMI result Body Mass Index 27.6 Appearance: Alert. Oriented X3. No acute distress. Eyes: Pupils equal, round and reactive to light. ENT: Pharynx normal. Neck: Normal inspection. Neck supple. CVS: Normal heart rate and rhythm. Pulses normal. Respiratory: No respiratory distress. Breath sounds normal. Abdomen: Soft and nontender. Skin: Skin warm and dry. Normal skin color. Normal skin turgor. Extremities: No lower extremity edema. Moves all extremities against resistance. Neuro: No motor deficit. No sensory deficit. Cranial nerves 2-12 intact. Course Course Course Narrative: 25-year-old female presents for pain at IV sites, lumps, right upper arm pain that radiates to her right upper back. She states that she is concerned about blood clots because she has a family history of clotting factor deficiencies. She states that she was treated for gastritis and dehydration with fatigue over the past few weeks. A review of records has indicated that she herself has not been diagnosed with clotting factor deficiencies, has been worked up at this ED multiple times in the past 2 months for similar circumstances, with 11 ED visits in the past 3 months. She has seen Neurology 3 times since September 28 with similar complaints, has had 7 CT scans in the past 4 months, all with negative workup. Physical exam is unremarkable, patient is alert oriented x4, flat affect, answering questions appropriately. I feel at this time it would be detrimental to pursue her request for PE investigation, wells PE score is 0. She does have multiple bruises to the right upper extremity consistent with IV start sites, I do not appreciate any swelling, decreased range of motion, or neurovascular deficit. I will order duplex of the upper extremity. I will not be pursuing any lab values at this time, she is afebrile, and appears nontoxic. I did discuss this plan with the patient, who agrees not to have any more lab draws or CT scans at this time. 20:30 duplex is negative for acute findings. Plan of care to discharge home and have patient follow-up primary care provider. MDM - Extremity (Nontraumatic) Differential Diagnosis Differential diagnosis: Likely cellulitis, superficial thrombophlebitis and deep venous thrombosis of upper extremity Medical Records Attestation: I reviewed the patient's medical records. Imaging Data Right upper extremity duplex: Attestation: I personally reviewed and interpreted this imaging study as follows: Radiologist's impression: EXAMINATION:? US VENOUS WITH DOPPLER UPPER EXTREMITY, right upper extremity CLINICAL INFORMATION:? Pain and swelling COMPARISON:? None TECHNIQUE: Ultrasound of the upper extremity is performed using compression sonography and color and pulse Doppler flow with assessment of augmentation of flow. There is also imaging and Doppler assessment of the jugular and subclavian veins. Spectral analysis with color-flow imaging is performed. FINDINGS: Respiratory variation, normal compression, and augmented flow are noted throughout the upper extremity including the axillary, brachial, cubital, and radial and ulnar veins. There is normal flow in the internal jugular and subclavian veins. There is no visible deep or superficial thrombophlebitis. If the patient's symptoms progress, a followup ultrasound in 5 -7 days might be of value to exclude proximal propagation from a nonvisualized distal arm vein. US/US venous duplex UE RT IMPRESSION: No DVT demonstrated in the right upper extremity Discharge Plan Discharge Clinical Impression: Arm pain, right Patient Disposition: Home, Self-Care Instructions: Arm Pain (ED) Additional Instructions: You were evaluated for right arm pain. Venous duplex is negative for DVT. Follow-up with primary care physician. Return to the emergency department for any new, concerning, worsening symptoms. Prescriptions: No Action ibuprofen 600 mg tablet 600 mg PO Q6H PRN (Reason: pain) Qty: 30 0RF lorazepam [Ativan] 0.5 mg tablet 0.5 mg PO BID PRN (Reason: anxiety) 4 Days Qty: 8 0RF sucralfate [Carafate] 1 gram tablet 1 g PO BID Qty: 30 0RF ondansetron 4 mg tablet,disintegrating 4 mg PO Q8H PRN (Reason: nausea and vomiting) Qty: 7 0RF cholecalciferol (vitamin D3) 50 mcg (2,000 unit) tablet 50 mcg PO DAILY metoprolol succinate 25 mg tablet extended release 24 hr 12.5 mg PO BID magnesium oxide 400 mg (241.3 mg magnesium) tablet 400 mg PO DAILY 30 Days Qty: 30 2RF Interventions: ED Discharge Assessment Last Done: 11/11/21 21:18 Discharge Date/Time: 11/11/21 21:19
[2021-11-11 18:49] VITALS: BP 119/76; PULSE 82; RESP 13; O2SAT 100
[2021-11-11 20:49] VITALS: BP 113/87; PULSE 97; RESP 18; O2SAT 100
== END 2021-11-11 21:19 | disposition home or self-care (01) ==
PROVIDERS: Emergency Provider Emergency Medicine; PCP Student in an Organized Health Care Education/Training Program
DX: M79.601 Pain in right arm (principal)
CPT/HCPCS: 93971; 99282; 99284

== ENCOUNTER 2021-11-13 12:16 | Emergency (ER) | payer OTHER, SELFPAY ==
--- NOTE | 2021-11-13 12:22 | ECG_ITS ---
Test Reason : chest pain Blood Pressure : / mmHG Vent. Rate : 074 BPM Atrial Rate : 074 BPM P-R Int : 136 ms QRS Dur : 082 ms QT Int : 374 ms P-R-T Axes : 069 042 050 degrees QTc Int : 415 ms Normal sinus rhythm Normal ECG When compared with ECG of 05-NOV-2021 13:00, No significant change was found Referred By: Generic ED Physician Electronically Signed By:YENY VIVAS
[2021-11-13 12:24] VITALS: BP 107/53; PULSE 83; RESP 18; TEMP 36.4; O2SAT 98; BMI 27.3
[2021-11-13 13:51] LABS: MANUAL DIFF FLAG NO
[2021-11-13 13:52] LABS: Basophils Percent Auto 0.4 % (0-2); Eosinophils Absolute Auto 0.1 X10*3/uL (0.0-0.4); Eosinophils Percent Auto 1.3 % (0-4); Hemoglobin 12.2 g/dl (12.0-16.0); Imm Gran Abs Auto 0.03 X10*3/uL (0.00-0.03); Imm Gran Pct Auto 0.4 % (0.0-0.4); Lymphocytes Absolute Auto 1.5 X10*3/uL (1.2-4.9); Lymphocytes Percent Auto 18.2 % (20-40); Mean Corpuscular HGB Conc 32.1 g/dl (31.0-35.0); Mean Corpuscular Hemoglobin 26.7 pg (27.0-33.0); Mean Corpuscular Volume 83.2 fL (80.0-98.0); Mean Platelet Volume 9.8 fL (9.4-12.3); Monocytes Absolute Auto 0.5 X10*3/uL (0.1-1.2); Monocytes Percent Auto 6.1 % (2-11); Neutrophils Absolute Auto 6.2 x10*3/uL (2.0-8.3); Neutrophils Percent Auto 73.6 % (45-73); Platelet Count 249 X10*3/uL (160-400); Red Blood Count 4.57 X10*6/uL (4.20-5.50); Red Cell Distribution Width 14.4 % (11.0-16.0); White Blood Count 8.4 X10*3/uL (4.8-10.8)
[2021-11-13 14:09] LABS: Alanine Aminotransferase 8 U/L (0-31); Albumin Level 4.6 g/dL (3.5-5.0); Alkaline Phosphatase 60 U/L (39-117); Anion Gap 14 (12-20); Aspartate Amino Transferase 13 U/L (5-31); Bilirubin Total 0.6 mg/dL (0.0-1.0); Blood Urea Nitrogen 8 mg/dL (9-16); Calcium 9.7 mg/dL (8.4-10.2); Carbon Dioxide 25 mmol/L (22-29); Chloride 105 mmol/L (96-108); Creatinine Clr Calc Pharmacy 107.4; Estimated Glomerular Filt Rate > 60; Glucose Random 89 mg/dL (60-115); Potassium 4.5 mmol/L (3.3-5.1); Sodium 139 mmol/L (135-145); Total Protein 7.8 g/dL (6.5-8.0)
[2021-11-13 14:13] LABS: Troponin-I High Sensitivity < 3.5 ng/L (<3.5-17.0)
== END 2021-11-13 14:54 | disposition left against medical advice (07) ==
PROVIDERS: Emergency Provider Emergency Medicine; PCP Student in an Organized Health Care Education/Training Program
DX: R51.9 Headache, unspecified (principal); H53.15 Visual distortions of shape and size
CPT/HCPCS: 36415; 80053; 84484; 85025; 93005; 99281; 99283

== ENCOUNTER 2021-11-14 10:47 | Emergency (ER) | payer OTHER, SELFPAY ==
--- NOTE | ~2021-11-14 | CT_ITS ---
EXAMINATION: CTA OF THE HEAD AND NECK CLINICAL INFORMATION: Right eye swelling. Dizziness and headaches. COMPARISON: Brain MRI dated 07/19/2021. TECHNIQUE: Test bolus sequences followed by intravenous administration 70 mL of Omnipaque 350. Helical imaging was performed in the axial plane from the mediastinum to the skull vertex. Delayed postcontrast imaging of the head was also performed. The data was processed at the medical lab technologist's workstation for generation of MIP sequences. Three-dimensional volume rendered reformatted images were also generated at an offline 3-D workstation. Stenoses are assessed in accordance with NASCET criteria unless otherwise indicated. This CT examination was performed using dose optimization techniques as appropriate, variously including the following: *Automated exposure control *Adjustment of mA and/or kV according to patient size (this includes techniques or standardized protocols for targeted exams where dose is matched to indication/reason for exam; i.e. extremities or head) *Use of iterative reconstruction technique DLP: 2295 mGy-cm. FINDINGS: CT head: There is no evidence of acute intracranial hemorrhage or territorial infarction. There is no loss of rob to white matter differentiation. No abnormal mass effect or midline shift is seen. No extra-axial fluid collections are identified. There is no abnormal enhancement. The ventricles are normal in size. There is no abnormal attenuation within the brain parenchyma. There is nonspecific mild right periorbital soft tissue thickening/swelling. The osseous structures are normal. The mastoid air cells and visualized portions of the paranasal sinuses are well aerated. CTA neck: The imaged aortic arch and origins of the great vessels are normal. The common carotid arteries are widely patent. The carotid bifurcations are normal. The cervical internal carotid arteries are normal. The vertebral arteries opacify normally and are of normal caliber. The soft tissues of the neck are unremarkable. The imaged portions of the lungs are clear. CTA head: The intradural vertebral arteries and basilar artery are normal. The posterior cerebral arteries are widely patent. The internal carotid arteries are of normal caliber. The LAMAR and MCA vascular complexes bilaterally are normal. The venous sinuses opacify normally. CT/CT angio head neck IMPRESSION: Normal CT angiogram of the head and neck. No acute intracranial process. Nonspecific right periorbital soft tissue swelling. Imaging findings reported to nurse practitioner Marie at 3:26 PM on 11/14/2021.
[2021-11-14 11:22] VITALS: BP 117/60; PULSE 83; RESP 18; TEMP 36.8; O2SAT 100; BMI 27.3
--- NOTE | 2021-11-14 11:25 | ECG_ITS ---
Test Reason : DIZZINESS Blood Pressure : / mmHG Vent. Rate : 075 BPM Atrial Rate : 075 BPM P-R Int : 144 ms QRS Dur : 078 ms QT Int : 370 ms P-R-T Axes : 075 030 036 degrees QTc Int : 413 ms Normal sinus rhythm Septal infarct , age undetermined Abnormal ECG When compared with ECG of 13-NOV-2021 13:30, T wave inversion now evident in Septal leads Referred By: Generic ED Physician Electronically Signed By:YENY VIVAS
[2021-11-14 11:38] LABS: MANUAL DIFF FLAG NO
[2021-11-14 11:39] LABS: Basophils Percent Auto 0.3 % (0-2); Eosinophils Absolute Auto 0.1 X10*3/uL (0.0-0.4); Eosinophils Percent Auto 1.3 % (0-4); Hematocrit 35.6 % (37.0-47.0); Hemoglobin 11.5 g/dl (12.0-16.0); Imm Gran Abs Auto 0.02 X10*3/uL (0.00-0.03); Imm Gran Pct Auto 0.3 % (0.0-0.4); Lymphocytes Absolute Auto 1.5 X10*3/uL (1.2-4.9); Lymphocytes Percent Auto 22.2 % (20-40); Mean Corpuscular HGB Conc 32.3 g/dl (31.0-35.0); Mean Corpuscular Hemoglobin 26.9 pg (27.0-33.0); Mean Corpuscular Volume 83.4 fL (80.0-98.0); Mean Platelet Volume 9.7 fL (9.4-12.3); Monocytes Absolute Auto 0.5 X10*3/uL (0.1-1.2); Monocytes Percent Auto 7.4 % (2-11); Neutrophils Absolute Auto 4.7 x10*3/uL (2.0-8.3); Neutrophils Percent Auto 68.5 % (45-73); Platelet Count 237 X10*3/uL (160-400); Red Blood Count 4.27 X10*6/uL (4.20-5.50); Red Cell Distribution Width 14.3 % (11.0-16.0); White Blood Count 6.9 X10*3/uL (4.8-10.8)
[2021-11-14 11:51] LABS: Anion Gap 13 (12-20); Blood Urea Nitrogen 8 mg/dL (9-16); Calcium 9.5 mg/dL (8.4-10.2); Carbon Dioxide 25 mmol/L (22-29); Chloride 107 mmol/L (96-108); Creatinine Clr Calc Pharmacy 104.6; Estimated Glomerular Filt Rate > 60; Glucose Random 88 mg/dL (60-115); Potassium 4.5 mmol/L (3.3-5.1); Sodium 140 mmol/L (135-145)
--- NOTE | 2021-11-14 12:04 | ED_ITS ---
HPI - Dizziness General Chief Complaint: General Medical Stated Complaint: R eye swollen, dizzy Time Seen by Provider: 11/14/21 11:47 Source: patient and old records reviewed Mode of arrival: ambulatory Limitations: no limitations History of Present Illness HPI Narrative: 25 yo female with hx of anxiety, palpitations, PFO reports one week of being off balance and having headaches R eye pain (swelling that has improved) along with blurry vision. She was seen yesterday for negative RUE DVT MD elicited complaint: dizziness (eye pain, swelling, blurry vision) Pertinent past history: BPPV and other (PFO) Onset (ago): week(s) (1) Timing: gradual onset Severity: moderate Description: room spinning , off-balance and difficulty walking Context: change in body position History of similar symptoms: Yes Exacerbating factors: movement/ambulation and change in body position Relieving factors: nothing Associated symptoms: other (eye pain, swelling, blurry vision, difficulty walking) Related Data Home Medications Medication Instructions Recorded Confirmed cholecalciferol (vitamin D3) 50 50 mcg PO DAILY 09/28/21 10/12/21 mcg (2,000 unit) tablet metoprolol succinate 25 mg 12.5 mg PO BID 10/12/21 10/12/21 tablet,extended release 24 hr Previous Rx's Medication Instructions Recorded ibuprofen 600 mg tablet 600 mg PO Q6H PRN pain #30 tabs 08/17/21 lorazepam 0.5 mg tablet (Ativan) 0.5 mg PO BID PRN anxiety 4 days 09/08/21 #8 tabs magnesium oxide 400 mg (241.3 mg 400 mg PO DAILY 30 days #30 tabs 10/12/21 magnesium) tablet ondansetron 4 mg disintegrating 4 mg PO Q8H PRN nausea and 11/05/21 tablet vomiting #7 tabs sucralfate 1 gram tablet (Carafate) 1 g PO BID #30 tabs 11/05/21 cephalexin 500 mg capsule 500 mg PO BID 7 days #14 caps 11/14/21 erythromycin 5 mg/gram (0.5 %) eye 0.5 inch ophthalmic (eye) BID 7 11/14/21 ointment days #3.5 grams Allergies Allergy/AdvReac Type Severity Reaction Status Date / Time vancomycin Allergy Swelling Verified 11/11/21 17:46 Review of Systems Review of Systems: Constitutional : No Fever, No Chills, No Fatigue ENT/Mouth : No sore throat, No Rhinorrhea Eyes: pos Eye Pain, pos Swelling, No Redness Cardiovascular : No Chest Pain, No SOB, No Dyspnea on Exertion Respiratory : No Cough, No Sputum Gastrointestinal : No Nausea, No Vomiting, No Diarrhea, No abdominal Pain Genitourinary : No Dysuria, No Urinary Frequency, No Hematuria, Musculoskeletal : No joint pain, No Myalgias, No Joint Swelling Skin : No Skin Lesions, No rash Neuro : No Weakness, No Numbness, pos Dizziness, positive Headache Psych : No Anxiety/Panic, No Depression Heme/Lymph: No Bruising, No Bleeding,No Lymphadenopathy Endocrine : No Polyuria, No Polydipsia All other systems reviewed and are negative [facility] Past Medical History Attestation statement: The following information was validated with the patient. Medical History (Updated 11/14/21 @ 15:30 by Alexa Salazar DO) Anxiety Asthma PFO (patent foramen ovale) Surgical History No pertinent past surgical history Family History Family History Father Stomach cancer Mother DM (diabetes mellitus) Cancer HTN (hypertension) Hypercholesteremia Social History Social History Household Members: Family Alcohol intake: never Patient Tobacco Use Status: Former Tobacco user Use of substances other than those prescribed or required for medical reasons: No Advance Directives: No Advance Directives Information Provided: Yes Patient : No Current occupational status: unemployed Physical Exam Vital Signs: Vital Signs: Last Vital Signs Temp 98.7 F 11/14/21 14:22 Pulse 72 11/14/21 14:22 Resp 19 11/14/21 14:22 BP 92/54 L 11/14/21 14:22 Pulse Ox 98 11/14/21 14:22 O2 Del Method 11/14/21 14:22 BMI result Body Mass Index 27.3 Appearance: Alert. Oriented X3. No acute distress. Eyes: Pupils equal, round and reactive to light. no pain with EOMi, R upper lip mild swelling has inner hordeolum lateral upper inner lid mild scant purulence n oted at site ENT: Pharynx normal. Neck: Normal inspection. Neck supple. CVS: Normal heart rate and rhythm. Pulses normal. Respiratory: No respiratory distress. Breath sounds normal. Abdomen: Soft and non-tender. Skin: Skin warm and dry. Normal skin color. Normal skin turgor. Extremities: No lower extremity edema. No calf ttp Neuro: Oriented X 3. No motor deficit. No sensory deficit. no drift Course Course Course Narrative: CTA negative at this time, no orbital cellulitis at this time stable for DC at this time patient on DC questioned checking her EKG on patient portal stating it was abnormal - I explained to her that she has had intermittent persistent t wave inversions in V 1 and V2 and that these are not new findings. they are in fact chronic and can be present in females her age. She seemed okay with this answer. She then on DC per supercharger mechanic wanted further testing including two troponin tests and repeat EKGs - supercharger mechanic stated that her EKG findings are not new to the patient and that she can see her PCP - patient has been seen multiple times here for similar workup in the past. Can follow up as outpatient. MDM - Dizziness MDM Narrative Medical decision making narrative: 25 yo female with hx of anxiety, PFO, on holter monitor for palpitations here with c/o dizziness, R eye pain, unsteady gait and blurry vision x 1 week - has no focal deficits. Will need basic labs, EKG, CTA head and neck for dissection/stroke though low susp she is on ASA for PFO. Her R eye has hordeolum does not wear contacts and she has no pain with EOM and it is not proptotic d oubt orbital cellulitis Lab Data Result diagrams: 11/14/21 11:31 11/14/21 11:31 Labs: Lab Results 11/14/21 11/14/21 Range/Units 11:31 11:31 WBC 6.9 (4.8-10.8) X10*3/uL RBC 4.27 (4.20-5.50) X10*6/uL Hgb 11.5 L (12.0-16.0) g/dl Hct 35.6 L (37.0-47.0) % MCV 83.4 (80.0-98.0) fL MCH 26.9 L (27.0-33.0) pg MCHC 32.3 (31.0-35.0) g/dl RDW 14.3 (11.0-16.0) % Plt Count 237 (160-400) X10*3/uL MPV 9.7 (9.4-12.3) fL Immature Gran % (Auto) 0.3 (0.0-0.4) % Neut % (Auto) 68.5 (45-73) % Lymph % (Auto) 22.2 (20-40) % [place] % (Auto) 7.4 (2-11) % Eos % (Auto) 1.3 (0-4) % Baso % (Auto) 0.3 (0-2) % Lymph # (Auto) 1.5 (1.2-4.9) X10*3/uL [place] # (Auto) 0.5 (0.1-1.2) X10*3/uL Eos # (Auto) 0.1 (0.0-0.4) X10*3/uL Baso # (Auto) 0.0 (0.0-0.2) X10*3/uL Abs Immat Gran (auto) 0.02 (0.00-0.03) X10*3/uL Absolute Neuts (auto) 4.7 (2.0-8.3) x10*3/uL Absolute Nucleated RBC 0.000 (0.0-0.012) X10*3/uL Nucleated RBC % (auto) 0.0 (0.0-0.2) /100WBC Sodium 140 (135-145) mmol/L Potassium 4.5 (3.3-5.1) mmol/L Chloride 107 (96-108) mmol/L Carbon Dioxide 25 (22-29) mmol/L Anion Gap 13 (12-20) BUN 8 L (9-16) mg/dL Creatinine 0.77 (0.5-1.4) mg/dL Estim Creat Clear Calc 104.6 Estimated GFR > 60 Random Glucose 88 (60-115) mg/dL Calcium 9.5 (8.4-10.2) mg/dL Beta HCG, Quant < 2 mIU/mL ECG Data Attestation: I personally reviewed and interpreted this ECG as follows: ECG interpretation date: 11/14/21 ECG interpretation time: 12:04 Interpretation: Rate: 75 Rhythm: NSR [place]: normal Normal P waves. Normal WILI. Normal QRS complex. ST T wave : no VICTORINO, inverted t wave V2 qTC: normal prior studies: no sig change from priors The study has been interpreted contemporaneously by me. . Discharge Plan Discharge Clinical Impression: Dizziness, Preseptal cellulitis Hordeolum Qualifiers: Hordeolum type: internum Laterality: right Eyelid: upper Qualified Code(s): H00.021 - Hordeolum internum right upper eyelid Patient Disposition: Home, Self-Care Instructions: Stye (ED), Dizziness (ED), Periorbital Cellulitis in Adults (ED) Additional Instructions: return to ED for any worsening symptoms or concerns Prescriptions: New erythromycin 5 mg/gram (0.5 %) ointment 0.5 inch ophthalmic (eye) BID 7 Days Qty: 3.5 0RF cephalexin 500 mg capsule 500 mg PO BID 7 Days Qty: 14 0RF No Action ibuprofen 600 mg tablet 600 mg PO Q6H PRN (Reason: pain) Qty: 30 0RF lorazepam [Ativan] 0.5 mg tablet 0.5 mg PO BID PRN (Reason: anxiety) 4 Days Qty: 8 0RF sucralfate [Carafate] 1 gram tablet 1 g PO BID Qty: 30 0RF ondansetron 4 mg tablet,disintegrating 4 mg PO Q8H PRN (Reason: nausea and vomiting) Qty: 7 0RF cholecalciferol (vitamin D3) 50 mcg (2,000 unit) tablet 50 mcg PO DAILY metoprolol succinate 25 mg tablet extended release 24 hr 12.5 mg PO BID magnesium oxide 400 mg (241.3 mg magnesium) tablet 400 mg PO DAILY 30 Days Qty: 30 2RF Interventions: ED Discharge Assessment Last Done: 11/14/21 16:03 Discharge Date/Time: 11/14/21 16:05
[2021-11-14] MEDS: Lactated Ringers 1,000 ML 999 ML IV (12:09)
[2021-11-14] MEDS: Meclizine HCl 25 MG TABLET PO (12:13)
[2021-11-14] MEDS: Erythromycin Base 0.5% Oph Oin 1 GM TUBE 1 CM EYE-RIGHT (12:13)
[2021-11-14 12:33] VITALS: BP 97/62; PULSE 69; RESP 16; TEMP 37; O2SAT 98
[2021-11-14 12:44] LABS: HCG Quantitative < 2 mIU/mL
[2021-11-14 14:22] VITALS: BP 92/54; PULSE 72; RESP 19; TEMP 37.1; O2SAT 98
== END 2021-11-14 16:05 | disposition home or self-care (01) ==
PROVIDERS: Emergency Provider Emergency Medicine; PCP Hospitalist
DX: L03.213 Periorbital cellulitis (principal); R42 Dizziness and giddiness; H00.021 Hordeolum internum right upper eyelid; R26.81 Unsteadiness on feet
CPT/HCPCS: 36415; 70496; 70498; 80048; 84702; 85025; 93005; 99284

== ENCOUNTER 2021-11-27 08:56 | Emergency (ER) | payer OTHER, SELFPAY ==
--- NOTE | ~2021-11-27 | XR_ITS ---
EXAMINATION: XR CHEST CLINICAL INFORMATION: Anterior chest pain for 3 days COMPARISON: 10/20/2021 TECHNIQUE: 2 views of the chest were obtained. FINDINGS: Lungs are clear. No focal consolidation or mass. Normal pulmonary vascularity. No pleural effusion or pneumothorax. Normal heart size. No acute osseous abnormality. XR/XR chest 2V IMPRESSION: No acute pulmonary disease.
--- NOTE | 2021-11-27 09:02 | ECG_ITS ---
Test Reason : cp Blood Pressure : / mmHG Vent. Rate : 080 BPM Atrial Rate : 080 BPM P-R Int : 136 ms QRS Dur : 082 ms QT Int : 364 ms P-R-T Axes : 071 026 044 degrees QTc Int : 419 ms Normal sinus rhythm Normal ECG When compared with ECG of 14-NOV-2021 11:28, No significant change was found Referred By: Generic ED Physician Electronically Signed By:YENY VIVAS
[2021-11-27 09:09] VITALS: BP 109/66; PULSE 90; RESP 16; O2SAT 100; BMI 27.3
[2021-11-27] MEDS: Lidocaine HCl Viscous 2 % 15 ML SOLUTION MUCOUS MEM (12:49)
[2021-11-27] MEDS: Magnesium Hydrox/Alum Hydrox 30 ML ORAL.SUSP PO (12:49)
--- NOTE | 2021-11-27 12:49 | ED.CHESTPAIN ---
HPI - Chest Pain General Chief Complaint: Chest Pain Stated Complaint: chest pain Time Seen by Provider: 11/27/21 12:21 Source: patient Mode of arrival: ambulatory Limitations: no limitations History of Present Illness HPI narrative: Patient presents emergency department for evaluation of multiple complaints. She states that for the past 2 days she has been having substernal chest discomfort that is described as a bloated feeling. She states that she has been having intermittent palpitations with this. She feels as though she is unable to tolerate eating as this increases her discomfort and it causes her to feel nausea. Additionally, she reports that this is worse at night. She has had a history of similar symptoms in the past that this feels worse than what she has previously experienced. She is also expressing diffuse abdominal discomfort. Reports currently for acid reflux she is taking pantoprazole, omeprazole, and ondansetron. Related Data Home Medications Medication Instructions Recorded Confirmed cholecalciferol (vitamin D3) 50 50 mcg PO DAILY 09/28/21 10/12/21 mcg (2,000 unit) tablet metoprolol succinate 25 mg 12.5 mg PO BID 10/12/21 10/12/21 tablet,extended release 24 hr Previous Rx's Medication Instructions Recorded ibuprofen 600 mg tablet 600 mg PO Q6H PRN pain #30 tabs 08/17/21 lorazepam 0.5 mg tablet (Ativan) 0.5 mg PO BID PRN anxiety 4 days 09/08/21 #8 tabs magnesium oxide 400 mg (241.3 mg 400 mg PO DAILY 30 days #30 tabs 10/12/21 magnesium) tablet ondansetron 4 mg disintegrating 4 mg PO Q8H PRN nausea and 11/05/21 tablet vomiting #7 tabs sucralfate 1 gram tablet (Carafate) 1 g PO BID #30 tabs 11/05/21 cephalexin 500 mg capsule 500 mg PO BID 7 days #14 caps 11/14/21 erythromycin 5 mg/gram (0.5 %) eye 0.5 inch ophthalmic (eye) BID 7 11/14/21 ointment days #3.5 grams aluminum-mag hydroxide-simethicone 10 ml PO TID PRN indigestion #100 11/27/21 400 mg-400 mg-40 mg/5 mL oral susp mL (Maalox Maximum Strength) Allergies Allergy/AdvReac Type Severity Reaction Status Date / Time vancomycin Allergy Swelling Verified 11/11/21 17:46 Review of Systems Review of Systems: Constitutional: No weight loss. No fever. No chills. No weakness. No fatigue. Skin: No rash. No itching. Cardiovascular: Positive chest pain. Positive chest pressure. Positive palpitations. No pedal edema. Respiratory: No shortness of breath. No cough. No sputum production. Gastrointestinal: No anorexia. Positive nausea. No vomiting. No diarrhea. Positive abdominal pain. No blood in stool. Genitourinary: No burning micturition. No urinary frequency. No incontinence. Neurologic: No headache. No dizziness. No pre-syncope/ syncope. Musculoskeletal: No muscle pain. No back pain. No joint pain. No stiffness. Hematologic: No bleeding. No bruising. Lymphatics: No enlarged lymph nodes. Psychiatric:No depression. Positive anxiety. Endocrine: No polyuria. No polydipsia. Yes all other systems are reviewed and are negative [facility] Past Medical History Medical History (Updated 11/27/21 @ 14:38 by Xochilt Parekh CNP) Anxiety Asthma PFO (patent foramen ovale) Surgical History No pertinent past surgical history Family History Family History Father Stomach cancer Mother DM (diabetes mellitus) Cancer HTN (hypertension) Hypercholesteremia Social History Social History Household Members: Family Alcohol intake: never Patient Tobacco Use Status: Former Tobacco user Advance Directives: No Advance Directives Information Provided: No Current occupational status: unemployed Physical Exam Vital Signs: Vital Signs: Last Vital Signs Pulse 77 11/27/21 14:45 Resp 18 11/27/21 14:45 BP 115/75 11/27/21 14:45 Pulse Ox 98 11/27/21 14:45 O2 Del Method 11/27/21 14:45 BMI result Body Mass Index 27.3 Appearance: Alert.?Oriented to person, place and time. No acute distress.?Normal affect. Eyes: Pupils equal, round and reactive to light.? ENT: Pharynx normal.?? Neck: Normal inspection.? Neck supple.?? CVS: Heart sounds normal. Normal heart rate and rhythm.? Pulses normal.?? Respiratory: No respiratory distress.? Lung sounds clear to auscultation bilaterally?? Abdomen: Soft and non-tender. Normoactive bowel sounds. Skin: Skin warm and dry.? Normal skin color.? Extremities: No lower extremity edema.? Neuro: Moves all extremities spontaneously. Sensation intact bilaterally. No motor deficit. Ambulates with normal steady gait. Course Course Course Narrative: Patient is a 25-year-old female with a past medical history of anxiety, PFO currently on aspirin, GERD. She presents emergency department for evaluation of chest pain. Vital signs are stable. She is overall well-appearing. Will obtain CBC to evaluate for leukocytosis/ anemia, CMP and lipase to evaluate for abnormal electrolytes /abnormal renal function/ abnormal hepatic/biliary function, EKG and troponin to evaluate for ischemia/ACS. Chest x-ray to evaluate for consolidation/ infiltrate/ mass/ pulmonary congestion and Urinalysis. Trial GI cocktail for pain at this time. Reevaluation(s) Reevaluation #1: CBC reveals a normocytic anemia consistent with baseline, no leukocytosis. CMP is completely unremarkable. Lipase normal. Troponin <3.5, EKG reveals normal sinus rhythm with no acute ischemic findings. Chest x-ray reveals no acute cardiopulmonary process. Patient reports some improvement after GI cocktail. Discussed plan of care for discharge home, sent with a new prescription for Maalox, advised up with her primary care provider as well as Gastroenterology. Discussed worrisome signs and symptoms to return back to the emergency department for. All questions were answered, patient is discharged home in stable condition. Time: 14:22 [facility] - Chest Pain Medical Records Data Attestation: I reviewed the patient's medical records. Lab Data Attestation: I reviewed the patient's lab results. Result diagrams: 11/27/21 13:05 11/27/21 13:05 Labs: Lab Results 11/27/21 11/27/21 11/27/21 Range/Units 13:00 13:05 13:05 WBC 6.6 (4.8-10.8) X10*3/uL RBC 4.26 (4.20-5.50) X10*6/uL Hgb 11.3 L (12.0-16.0) g/dl Hct 35.2 L (37.0-47.0) % MCV 82.6 (80.0-98.0) fL MCH 26.5 L (27.0-33.0) pg MCHC 32.1 (31.0-35.0) g/dl RDW 13.9 (11.0-16.0) % Plt Count 246 (160-400) X10*3/uL MPV 10.2 (9.4-12.3) fL Immature Gran % (Auto) 0.3 (0.0-0.4) % Neut % (Auto) 69.2 (45-73) % Lymph % (Auto) 21.2 (20-40) % [place] % (Auto) 7.6 (2-11) % Eos % (Auto) 1.4 (0-4) % Baso % (Auto) 0.3 (0-2) % Lymph # (Auto) 1.4 (1.2-4.9) X10*3/uL [place] # (Auto) 0.5 (0.1-1.2) X10*3/uL Eos # (Auto) 0.1 (0.0-0.4) X10*3/uL Baso # (Auto) 0.0 (0.0-0.2) X10*3/uL Abs Immat Gran (auto) 0.02 (0.00-0.03) X10*3/uL Absolute Neuts (auto) 4.6 (2.0-8.3) x10*3/uL Absolute Nucleated RBC 0.000 (0.0-0.012) X10*3/uL Nucleated RBC % (auto) 0.0 (0.0-0.2) /100WBC Sodium 136 (135-145) mmol/L Potassium 4.2 (3.3-5.1) mmol/L Chloride 104 (96-108) mmol/L Carbon Dioxide 22 (22-29) mmol/L Anion Gap 14 (12-20) BUN 11 (9-16) mg/dL Creatinine 0.81 (0.5-1.4) mg/dL Estim Creat Clear Calc 99.5 Estimated GFR > 60 Random Glucose 87 (60-115) mg/dL Calcium 9.2 (8.4-10.2) mg/dL Magnesium 2.1 (1.6-2.6) mg/dL Total Bilirubin 0.7 (0.0-1.0) mg/dL AST 14 (5-31) U/L ALT 9 (0-31) U/L Alkaline Phosphatase 57 (39-117) U/L Troponin I High Sens (<3.5-17.0) ng/L Total Protein 7.2 (6.5-8.0) g/dL Albumin 4.3 (3.5-5.0) g/dL Lipase 14 (8-78) U/L Urine Color Urine Appearance Urine pH (5.0-9.0) Ur Specific [place] (1.005-1.025) Urine Protein (Neg-Trace) mg/dL Urine Glucose (UA) (Negative) mg/dL Urine Ketones (Negative) mg/dL Urine Blood (Negative) Urine Nitrite (Negative) Ur Leukocyte Esterase (Negative) Urine Test (NEGATIVE) COVID-19 (MARILYNN) Negative (Negative) COVID-19 Clin Com See Note 11/27/21 11/27/21 11/27/21 Range/Units 13:05 14:28 14:28 WBC (4.8-10.8) X10*3/uL RBC (4.20-5.50) X10*6/uL Hgb (12.0-16.0) g/dl Hct (37.0-47.0) % MCV (80.0-98.0) fL MCH (27.0-33.0) pg MCHC (31.0-35.0) g/dl RDW (11.0-16.0) % Plt Count (160-400) X10*3/uL MPV (9.4-12.3) fL Immature Gran % (Auto) (0.0-0.4) % Neut % (Auto) (45-73) % Lymph % (Auto) (20-40) % [place] % (Auto) (2-11) % Eos % (Auto) (0-4) % Baso % (Auto) (0-2) % Lymph # (Auto) (1.2-4.9) X10*3/uL [place] # (Auto) (0.1-1.2) X10*3/uL Eos # (Auto) (0.0-0.4) X10*3/uL Baso # (Auto) (0.0-0.2) X10*3/uL Abs Immat Gran (auto) (0.00-0.03) X10*3/uL Absolute Neuts (auto) (2.0-8.3) x10*3/uL Absolute Nucleated RBC (0.0-0.012) X10*3/uL Nucleated RBC % (auto) (0.0-0.2) /100WBC Sodium (135-145) mmol/L Potassium (3.3-5.1) mmol/L Chloride (96-108) mmol/L Carbon Dioxide (22-29) mmol/L Anion Gap (12-20) BUN (9-16) mg/dL Creatinine (0.5-1.4) mg/dL Estim Creat Clear Calc Estimated GFR Random Glucose (60-115) mg/dL Calcium (8.4-10.2) mg/dL Magnesium (1.6-2.6) mg/dL Total Bilirubin (0.0-1.0) mg/dL AST (5-31) U/L ALT (0-31) U/L Alkaline Phosphatase (39-117) U/L Troponin I High Sens < 3.5 (<3.5-17.0) ng/L Total Protein (6.5-8.0) g/dL Albumin (3.5-5.0) g/dL Lipase (8-78) U/L Urine Color Yellow Urine Appearance Clear Urine pH 6.0 (5.0-9.0) Ur Specific [place] <= 1.005 (1.005-1.025) Urine Protein Negative (Neg-Trace) mg/dL Urine Glucose (UA) Negative (Negative) mg/dL Urine Ketones Negative (Negative) mg/dL Urine Blood Negative (Negative) Urine Nitrite Negative (Negative) Ur Leukocyte Esterase Negative (Negative) Urine Test NEGATIVE (NEGATIVE) COVID-19 (MARILYNN) (Negative) COVID-19 Clin Com Imaging Data Chest x-ray: Radiologist's impression: XR/XR chest 2V IMPRESSION: No acute pulmonary disease. ECG Data ECG #1: Attestation: I personally reviewed and interpreted this ECG as follows: ECG interpretation date: 11/27/21 Prior ECG tracings: available for review Interpretation: Rate: 80 Rhythm:? Normal sinus rhythm [place]:? Normal Normal P waves.? Normal WILI.?? Normal QRS complex.?? ST T wave :??No ST elevation, no ST depression. qTC: 419. prior studies:? October 2021 The study has been interpreted contemporaneously by me. Discharge Plan Discharge Clinical Impression: Chest pain Patient Disposition: Home, Self-Care Instructions: Noncardiac Chest Pain (ED) Additional Instructions: As we discussed, your blood work, EKG, urinalysis and chest x-ray were all normal today. You have been given a prescription for Maalox to go home with as this helped with your symptoms. Please contact your primary care provider and arrange for a follow-up visit within 3 days. Return to the emergency department any new or worsening symptoms or concerns. Prescriptions: New alum-mag hydroxide-simeth [Maalox Maximum Strength] 400-400-40 mg/5 mL suspension 10 ml PO TID PRN (Reason: indigestion) Qty: 100 0RF No Action ibuprofen 600 mg tablet 600 mg PO Q6H PRN (Reason: pain) Qty: 30 0RF lorazepam [Ativan] 0.5 mg tablet 0.5 mg PO BID PRN (Reason: anxiety) 4 Days Qty: 8 0RF sucralfate [Carafate] 1 gram tablet 1 g PO BID Qty: 30 0RF ondansetron 4 mg tablet,disintegrating 4 mg PO Q8H PRN (Reason: nausea and vomiting) Qty: 7 0RF erythromycin 5 mg/gram (0.5 %) ointment 0.5 inch ophthalmic (eye) BID 7 Days Qty: 3.5 0RF cephalexin 500 mg capsule 500 mg PO BID 7 Days Qty: 14 0RF cholecalciferol (vitamin D3) 50 mcg (2,000 unit) tablet 50 mcg PO DAILY metoprolol succinate 25 mg tablet extended release 24 hr 12.5 mg PO BID magnesium oxide 400 mg (241.3 mg magnesium) tablet 400 mg PO DAILY 30 Days Qty: 30 2RF Interventions: ED Discharge Assessment Last Done: 11/27/21 15:22 Discharge Date/Time: 11/27/21 15:23
[2021-11-27 13:19] LABS: MANUAL DIFF FLAG NO
[2021-11-27 13:24] LABS: Basophils Percent Auto 0.3 % (0-2); Eosinophils Absolute Auto 0.1 X10*3/uL (0.0-0.4); Eosinophils Percent Auto 1.4 % (0-4); Hematocrit 35.2 % (37.0-47.0); Hemoglobin 11.3 g/dl (12.0-16.0); Imm Gran Abs Auto 0.02 X10*3/uL (0.00-0.03); Imm Gran Pct Auto 0.3 % (0.0-0.4); Lymphocytes Absolute Auto 1.4 X10*3/uL (1.2-4.9); Lymphocytes Percent Auto 21.2 % (20-40); Mean Corpuscular HGB Conc 32.1 g/dl (31.0-35.0); Mean Corpuscular Hemoglobin 26.5 pg (27.0-33.0); Mean Corpuscular Volume 82.6 fL (80.0-98.0); Mean Platelet Volume 10.2 fL (9.4-12.3); Monocytes Absolute Auto 0.5 X10*3/uL (0.1-1.2); Monocytes Percent Auto 7.6 % (2-11); Neutrophils Absolute Auto 4.6 x10*3/uL (2.0-8.3); Neutrophils Percent Auto 69.2 % (45-73); Platelet Count 246 X10*3/uL (160-400); Red Blood Count 4.26 X10*6/uL (4.20-5.50); Red Cell Distribution Width 13.9 % (11.0-16.0); White Blood Count 6.6 X10*3/uL (4.8-10.8)
[2021-11-27 13:35] LABS: Alanine Aminotransferase 9 U/L (0-31); Albumin Level 4.3 g/dL (3.5-5.0); Alkaline Phosphatase 57 U/L (39-117); Anion Gap 14 (12-20); Aspartate Amino Transferase 14 U/L (5-31); Bilirubin Total 0.7 mg/dL (0.0-1.0); Blood Urea Nitrogen 11 mg/dL (9-16); Calcium 9.2 mg/dL (8.4-10.2); Carbon Dioxide 22 mmol/L (22-29); Chloride 104 mmol/L (96-108); Creatinine Clr Calc Pharmacy 99.5; Estimated Glomerular Filt Rate > 60; Glucose Random 87 mg/dL (60-115); Lipase 14 U/L (8-78); Magnesium 2.1 mg/dL (1.6-2.6); Potassium 4.2 mmol/L (3.3-5.1); Sodium 136 mmol/L (135-145); Total Protein 7.2 g/dL (6.5-8.0)
[2021-11-27 13:36] LABS: COVID-19 Test Negative (Negative)
[2021-11-27 13:41] LABS: Troponin-I High Sensitivity < 3.5 ng/L (<3.5-17.0)
[2021-11-27 14:39] LABS: Appearance Urine Clear; Color Urine Yellow; Glucose Urine UA Negative (Negative); Leukocyte Esterase Urine Negative (Negative); Nitrite Urine Negative (Negative); Specific Gravity - Urine <= 1.005 (1.005-1.025); Urine Blood Negative (Negative); Urine Ketones Negative (Negative); Urine Protein Negative (Neg-Trace)
[2021-11-27 14:45] VITALS: BP 115/75; PULSE 77; RESP 18; O2SAT 98
[2021-11-27 15:17] LABS: Urine Pregnancy NEGATIVE (NEGATIVE)
[2021-11-27 15:18] LABS: UPreg QC Valid YES
== END 2021-11-27 15:23 | disposition home or self-care (01) ==
PROVIDERS: Nurse Practitioner Family; Emergency Provider Emergency Medicine; PCP Student in an Organized Health Care Education/Training Program
DX: R07.9 Chest pain, unspecified (principal); K21.9 Gastro-esophageal reflux disease without esophagitis; F41.9 Anxiety disorder, unspecified; D64.9 Anemia, unspecified; Z20.822 Contact with and (suspected) exposure to COVID-19; Z79.899 Other long term (current) drug therapy; Z87.891 Personal history of nicotine dependence
CPT/HCPCS: 71046; 80053; 81003; 81025; 83690; 83735; 84484; 85025; 87635; 93005; 99283; 99284

== ENCOUNTER 2022-03-18 10:55 | Emergency (ER) | payer OTHER, SELFPAY ==
--- NOTE | ~2022-03-18 | CT_ITS ---
EXAMINATION: CT CHEST ANGIOGRAM PE PROTOCOL CLINICAL INFORMATION: , Reason for Exam Dyspnea and exertional hypoxia COMPARISON: None TECHNIQUE: Volumetric imaging was performed through the chest. Reformatted coronal and sagittal imaging was performed. 3-D MIP images performed at a dedicated separate workstation. This CT examination was performed using dose optimization techniques as appropriate, variously including the following: *Automated exposure control *Adjustment of mA and/or kV according to patient size (this includes techniques or standardized protocols for targeted exams where dose is matched to indication/reason for exam; i.e. extremities or head) *Use of iterative reconstruction technique CONTRAST: 65 mL Omnipaque 350 injected DLP: 246 FINDINGS: PULMONARY ARTERIES: There is proper opacification of the pulmonary artery and its main branches. No CT evidence of pulmonary emboli. LINES/TUBES: None LUNGS: Lung Parenchyma: There is no CT evidence of significant lung parenchymal disease. Lung Nodules:No lung mass or suspicious spiculated nodules, there are few scattered tiny nonspecific lung nodular densities measuring up to 3 mm or less. AIRWAYS: Trachea and bronchi are normal. PLEURA: No pleural effusion or pneumothorax. MEDIASTINUM AND SUSAN: The visualized thyroid gland is unremarkable. No mediastinal, hilar or axillary lymphadenopathy. There is no mediastinal mass. VESSELS: Thoracic aorta is normal in size. HEART AND PERICARDIUM: Heart is normal in size. There is no pericardial effusion. There are no coronary calcifications. CHEST WALL, LOWER NECK, SURROUNDING SOFT TISSUES: Normal VISUALIZED ABDOMEN: Unremarkable BONES: The visualized bony thorax is within normal limits. CT/CT angio chest PE protocol IMPRESSION: * No CT evidence of pulmonary emboli. * No lung mass or suspicious spiculated nodules, there are few scattered tiny nonspecific lung nodular densities measuring up to 3 mm or less.
[2022-03-18 10:57] VITALS: BP 116/73; PULSE 92; RESP 18; TEMP 36.6; O2SAT 98; BMI 28.3
--- NOTE | 2022-03-18 11:01 | ECG_ITS ---
Test Reason : chest pain Blood Pressure : / mmHG Vent. Rate : 088 BPM Atrial Rate : 088 BPM P-R Int : 140 ms QRS Dur : 078 ms QT Int : 360 ms P-R-T Axes : 068 054 053 degrees QTc Int : 435 ms Normal sinus rhythm Normal ECG When compared with ECG of 27-NOV-2021 09:05, No significant change was found Referred By: Marli Jaramillo Electronically Signed By:SEAN HAGAN MD
--- NOTE | 2022-03-18 11:05 | ED.GENADULT ---
HPI - General Adult General Chief complaint: General Medical <CARLOS Hernandez - Last Filed: 03/18/22 11:08> Stated complaint: chest pain, sob <CARLOS Hernandez - Last Filed: 03/18/22 11:08> Time Seen by Provider: 03/18/22 12:00 <CARLOS Hernandez - Last Filed: 03/18/22 11:08> Source: patient <CARLOS Hernandez - Last Filed: 03/18/22 11:08> patient <Jair Garcia MD - Last Filed: 03/18/22 16:27> Mode of arrival: ambulatory <CARLOS Hernandez - Last Filed: 03/18/22 11:08> ambulatory <Jair Garcia MD - Last Filed: 03/18/22 16:27> Limitations: no limitations <CARLOS Hernandez - Last Filed: 03/18/22 11:08> no limitations <Jair Garcia MD - Last Filed: 03/18/22 16:27> History of Present Illness HPI narrative: 26-year-old female came in for multiple complaints. 1. Right-sided chest pain started 10 days ago pain described as a right-sided chest pain that is intermittent comes and goes worse with taking a deep breath nothing makes it better, patient declined any SOB, no recent travel, no lower extremity swelling or tenderness. No fever, no chills, no coughing. 2. Patient also had what she called stomach bug with nausea, vomiting, diarrhea that caused her to be dehydrated and thinks that aggravated her chest pain symptoms. No sick contacts, no recent travel. No recent use of antibiotic. <Jair Garcia MD - Last Filed: 03/18/22 16:27> Related Data Home medications: Home Medications Medication Instructions Recorded Confirmed cholecalciferol (vitamin D3) 50 50 mcg PO DAILY 09/28/21 10/12/21 mcg (2,000 unit) tablet metoprolol succinate 25 mg 12.5 mg PO BID 10/12/21 10/12/21 tablet,extended release 24 hr Previous Rx's Medication Instructions Recorded ibuprofen 600 mg tablet 600 mg PO Q6H PRN pain #30 tabs 08/17/21 lorazepam 0.5 mg tablet (Ativan) 0.5 mg PO BID PRN anxiety 4 days 09/08/21 #8 tabs magnesium oxide 400 mg (241.3 mg 400 mg PO DAILY 30 days #30 tabs 10/12/21 magnesium) tablet ondansetron 4 mg disintegrating 4 mg PO Q8H PRN nausea and 11/05/21 tablet vomiting #7 tabs sucralfate 1 gram tablet (Carafate) 1 g PO BID #30 tabs 11/05/21 cephalexin 500 mg capsule 500 mg PO BID 7 days #14 caps 11/14/21 erythromycin 5 mg/gram (0.5 %) eye 0.5 inch ophthalmic (eye) BID 7 11/14/21 ointment days #3.5 grams aluminum-mag hydroxide-simethicone 10 ml PO TID PRN indigestion #100 11/27/21 400 mg-400 mg-40 mg/5 mL oral susp mL (Maalox Maximum Strength) <CARLOS Hernandez - Last Filed: 03/18/22 11:08> Allergies/adverse reactions: Allergies Allergy/AdvReac Type Severity Reaction Status Date / Time vancomycin Allergy Swelling Verified 11/11/21 17:46 <CARLOS Hernandez - Last Filed: 03/18/22 11:08> Review of Systems Review of Systems: All other systems are reviewed and are negative Constitutional: Reports as per HPI and Reports no additional constitutional complaints Eyes: Reports as per HPI and Reports no additional eye complaints Reports system reviewed and no additional complaints, except as documented Cardiovascular: Reports as per HPI and Reports no additional cardiovascular complaints Respiratory: Reports as per HPI and Reports no additional respiratory complaints Gastrointestinal: Reports as per HPI and Reports no additional gastrointestinal complaints Genitourinary: Reports no additional female genitourinary complaints Musculoskeletal: Reports no additional musculoskeletal complaints Skin/Breast: Reports system reviewed and no additional complaints, except as docu Psychiatric: Reports no additional psychiatric complaints Endocrine: Reports no additional endocrine complaints Hematologic/Lymphatic: Reports no additional hematologic/lymphatic complaints Allergic/Immunologic: Reports no additional allergic/immunologic complaints Reports system reviewed and no additional complaints, except as documented and Reports Abnormal speech present <Jair Garcia MD - Last Filed: 03/18/22 16:27> PMFSH Past Medical History Medical History: Medical History Anxiety Asthma PFO (patent foramen ovale) <CARLOS Hernandez - Last Filed: 03/18/22 11:08> Surgical History: Surgical History No pertinent past surgical history <CARLOS Hernandez - Last Filed: 03/18/22 11:08> Family History Family History: Family History Father Stomach cancer Mother DM (diabetes mellitus) Cancer HTN (hypertension) Hypercholesteremia <CARLOS Hernandez - Last Filed: 03/18/22 11:08> Social History Social History: Social History Household Members: Family Alcohol intake: never Patient Tobacco Use Status: Former Tobacco user Smoked in Last 30 Days: No Use of substances other than those prescribed or required for medical reasons: No Advance Directives: Yes Advance Directives Information Provided: Yes Advance Directives on File: No Patient : No Current occupational status: unemployed <CARLOS Hernandez - Last Filed: 03/18/22 11:08> Physical Exam ED Vital Signs: Vital Signs - 24 hr 03/18/22 10:57 03/18/22 12:15 03/18/22 14:58 Temperature 98 F Pulse Rate 92 72 77 Respiratory Rate 18 12 17 Blood Pressure 116/73 130/59 L 122/70 Pulse Oximetry 98 100 100 Oxygen Delivery Method Room Air Room Air Room Air BMI result Body Mass Index 28.3 <CARLOS Hernandez - Last Filed: 03/18/22 11:08> Vital Signs - 24 hr 03/18/22 10:57 03/18/22 12:15 03/18/22 14:58 Temperature 98 F Pulse Rate 92 72 77 Respiratory Rate 18 12 17 Blood Pressure 116/73 130/59 L 122/70 Pulse Oximetry 98 100 100 Oxygen Delivery Method Room Air Room Air Room Air BMI result Body Mass Index 28.3 Vital signs have been reviewed as appeared to be correct. Blood pressure normal. Heart rate normal. Respiration rate normal. Temperature normal. Oxygen saturation normal. <Jair Garcia MD - Last Filed: 03/18/22 16:27> Appearance: Alert. Oriented X3. No acute distress. Head: Normal external exam. Normocephalic. Atraumatic. No Ashley signs noted. No raccoon eyes noted Eyes: PERRLA. EOMI. Conjunctiva and sclera normal. Eyelids normal. ENT: TM's Normal. Pharynx normal. Uvula midline. Moist mucous membranes. No trismus noted. No drooling noted. No muffled voice noted. Neck: Normal inspection. Neck supple. FROM. No adenopathy. Thyroid Normal. No meningeal signs. No neck mass noted. CVS: Normal heart rate and rhythm. Heart sound normal. No murmurs noted. Pulses normal throughout. Respiratory: No respiratory distress. Painless inspiration. Breath sounds normal. No wheezes/rales/rhonchi noted. Chest nontender. No accessory muscle usage noted or decreased air movement noted. Abdomen: Soft and nontender. Bowel sounds normal in all 4 quadrants. No distention noted. No organomegaly noted. No visible injury noted. Back: No CVA tenderness. Full range of motion noted. Skin: Skin warm and dry. Normal skin color. Normal skin turgor. No rashes/lesions/lacerations noted. Extremities: No lower extremity edema. Extremities exhibit normal range of motion. Extremities nontender. Neuro: Oriented X 3. Cranial nerve exam: II-XII are grossly intact No motor deficit. No sensory deficit. Reflexes normal. <Jair Garcia MD - Last Filed: 03/18/22 16:27> Course Course Course Narrative: RME performed by Marli Jaramillo PA-C. Patient is a 26 year old female with a history of afib w/RVR requiring cardioversion, PFO, and dysautonomic disorder presenting to the emergency department complaining of chest pain. Labs, CXR, and EKG ordered. Patient placed back in the waiting room pending results and room availability. <CARLOS Hernandez - Last Filed: 03/18/22 11:08> Reevaluation(s) Reevaluation #1: Right-sided pleuritic chest pain for 10 days patient has unremarkable D-dimer patient feel exertional dyspnea sometimes had a CTA of the chest which is unremarkable for PE, VSS. Labs are unremarkable will discharge the patient to follow-up with PCP and use ibuprofen if needed. <Jair Garcia MD - Last Filed: 03/18/22 16:27> Medications Administered Generic Name Dose Route Start Last Admin Trade Name Freq PRN Reason Stop Dose Admin Sodium Chloride 1,000 mls @ 999 mls/hr 03/18/22 15:45 03/18/22 15:40 Ns IV 03/18/22 16:45 999 mls/hr .[id number] ABHAY Administration Discontinued Medications Generic Name Dose Route Start Last Admin Trade Name Freq PRN Reason Stop Dose Admin Iohexol 100 ml 03/18/22 16:04 03/18/22 16:04 Iohexol 350 Mg/Ml 100 Ml Infus..Btl IV 03/18/22 16:05 65 ml ONCE ONE Administration <CARLOS Hernandez - Last Filed: 03/18/22 11:08> Medications Administered Generic Name Dose Route Start Last Admin Trade Name Freq PRN Reason Stop Dose Admin Sodium Chloride 1,000 mls @ 999 mls/hr 03/18/22 15:45 03/18/22 15:40 Ns IV 03/18/22 16:45 999 mls/hr .[id number] ABHAY Administration Discontinued Medications Generic Name Dose Route Start Last Admin Trade Name Freq PRN Reason Stop Dose Admin Iohexol 100 ml 03/18/22 16:04 03/18/22 16:04 Iohexol 350 Mg/Ml 100 Ml Infus..Btl IV 03/18/22 16:05 65 ml ONCE ONE Administration <Jair Garcia MD - Last Filed: 03/18/22 16:27> Medical Decision Making Differential Diagnosis Differential Diagnoses: The differential diagnosis associated with the presentation includes (Pleurisy/PE/cardiac chest pain/chest wall pain/dehydration.) <Jair Garcia MD - Last Filed: 03/18/22 16:27> Lab Data MDM Lab Attestation statement: I reviewed the patient's lab results. <Jair Garcia MD - Last Filed: 03/18/22 16:27> Result Diagrams: : 03/18/22 12:24 03/18/22 12:24 <CARLOS Hernandez - Last Filed: 03/18/22 11:08> Labs: Lab Results 03/18/22 03/18/22 03/18/22 Range/Units 12:24 12:24 12:24 WBC 4.7 L (4.8-10.8) X10*3/uL RBC 4.03 L (4.20-5.50) X10*6/uL Hgb 10.2 L (12.0-16.0) g/dl Hct 31.9 L (37.0-47.0) % MCV 79.2 L (80.0-98.0) fL MCH 25.3 L (27.0-33.0) pg MCHC 32.0 (31.0-35.0) g/dl RDW 14.6 (11.0-16.0) % Plt Count 237 (160-400) X10*3/uL MPV 10.1 (9.4-12.3) fL Immature Gran % (Auto) 0.2 (0.0-0.4) % Neut % (Auto) 61.1 (45-73) % Lymph % (Auto) 29.3 (20-40) % Coles % (Auto) 6.2 (2-11) % Eos % (Auto) 2.8 (0-4) % Baso % (Auto) 0.4 (0-2) % Lymph # (Auto) 1.4 (1.2-4.9) X10*3/uL [place] # (Auto) 0.3 (0.1-1.2) X10*3/uL Eos # (Auto) 0.1 (0.0-0.4) X10*3/uL Baso # (Auto) 0.0 (0.0-0.2) X10*3/uL Abs Immat Gran (auto) 0.01 (0.00-0.03) X10*3/uL Absolute Neuts (auto) 2.9 (2.0-8.3) x10*3/uL Absolute Nucleated RBC 0.000 (0.0-0.012) X10*3/uL Nucleated RBC % (auto) 0.0 (0.0-0.2) /100WBC D-Dimer High Sensitivty NG/ML Sodium 139 (135-145) mmol/L Potassium 4.1 (3.3-5.1) mmol/L Chloride 111 H (96-108) mmol/L Carbon Dioxide 23 (22-29) mmol/L Anion Gap 9 L (12-20) BUN 8 L (9-16) mg/dL Creatinine 0.72 (0.5-1.4) mg/dL Estim Creat Clear Calc 113.0 Estimated GFR > 60 Random Glucose 79 (60-115) mg/dL Calcium 8.8 (8.4-10.2) mg/dL Magnesium 2.0 (1.6-2.6) mg/dL Total Bilirubin 0.3 (0.0-1.0) mg/dL AST 14 (5-31) U/L ALT 10 (0-31) U/L Alkaline Phosphatase 67 (39-117) U/L Troponin I High Sens < 3.5 (<3.5-17.0) ng/L Total Protein 6.6 (6.5-8.0) g/dL Albumin 3.9 (3.5-5.0) g/dL Urine Color Urine Appearance Urine pH (5.0-9.0) Ur Specific [place] (1.005-1.025) Urine Protein (Neg-Trace) mg/dL Urine Glucose (UA) (Negative) mg/dL Urine Ketones (Negative) mg/dL Urine Blood (Negative) Urine Nitrite (Negative) Ur Leukocyte Esterase (Negative) Urine Test (NEGATIVE) Influenza Type A (PCR) (Negative) Influenza Type B (PCR) (Negative) RSV RNA Qual (PCR) (Negative) SARS-CoV-2 RNA (RT-PCR) (Negative) 03/18/22 03/18/22 03/18/22 Range/Units 12:24 12:24 12:24 WBC (4.8-10.8) X10*3/uL RBC (4.20-5.50) X10*6/uL Hgb (12.0-16.0) g/dl Hct (37.0-47.0) % MCV (80.0-98.0) fL MCH (27.0-33.0) pg MCHC (31.0-35.0) g/dl RDW (11.0-16.0) % Plt Count (160-400) X10*3/uL MPV (9.4-12.3) fL Immature Gran % (Auto) (0.0-0.4) % Neut % (Auto) (45-73) % Lymph % (Auto) (20-40) % Coles % (Auto) (2-11) % Eos % (Auto) (0-4) % Baso % (Auto) (0-2) % Lymph # (Auto) (1.2-4.9) X10*3/uL [place] # (Auto) (0.1-1.2) X10*3/uL Eos # (Auto) (0.0-0.4) X10*3/uL Baso # (Auto) (0.0-0.2) X10*3/uL Abs Immat Gran (auto) (0.00-0.03) X10*3/uL Absolute Neuts (auto) (2.0-8.3) x10*3/uL Absolute Nucleated RBC (0.0-0.012) X10*3/uL Nucleated RBC % (auto) (0.0-0.2) /100WBC D-Dimer High Sensitivty 168 NG/ML Sodium (135-145) mmol/L Potassium (3.3-5.1) mmol/L Chloride (96-108) mmol/L Carbon Dioxide (22-29) mmol/L Anion Gap (12-20) BUN (9-16) mg/dL Creatinine (0.5-1.4) mg/dL Estim Creat Clear Calc Estimated GFR Random Glucose (60-115) mg/dL Calcium (8.4-10.2) mg/dL Magnesium (1.6-2.6) mg/dL Total Bilirubin (0.0-1.0) mg/dL AST (5-31) U/L ALT (0-31) U/L Alkaline Phosphatase (39-117) U/L Troponin I High Sens (<3.5-17.0) ng/L Total Protein (6.5-8.0) g/dL Albumin (3.5-5.0) g/dL Urine Color Yellow Urine Appearance Clear Urine pH 7.0 (5.0-9.0) Ur Specific [place] 1.010 (1.005-1.025) Urine Protein Negative (Neg-Trace) mg/dL Urine Glucose (UA) Negative (Negative) mg/dL Urine Ketones Negative (Negative) mg/dL Urine Blood Negative (Negative) Urine Nitrite Negative (Negative) Ur Leukocyte Esterase Negative (Negative) Urine Test (NEGATIVE) Influenza Type A (PCR) NEGATIVE (Negative) Influenza Type B (PCR) NEGATIVE (Negative) RSV RNA Qual (PCR) NEGATIVE (Negative) SARS-CoV-2 RNA (RT-PCR) NEGATIVE (Negative) 03/18/22 Range/Units 12:24 WBC (4.8-10.8) X10*3/uL RBC (4.20-5.50) X10*6/uL Hgb (12.0-16.0) g/dl Hct (37.0-47.0) % MCV (80.0-98.0) fL MCH (27.0-33.0) pg MCHC (31.0-35.0) g/dl RDW (11.0-16.0) % Plt Count (160-400) X10*3/uL MPV (9.4-12.3) fL Immature Gran % (Auto) (0.0-0.4) % Neut % (Auto) (45-73) % Lymph % (Auto) (20-40) % Coles % (Auto) (2-11) % Eos % (Auto) (0-4) % Baso % (Auto) (0-2) % Lymph # (Auto) (1.2-4.9) X10*3/uL [place] # (Auto) (0.1-1.2) X10*3/uL Eos # (Auto) (0.0-0.4) X10*3/uL Baso # (Auto) (0.0-0.2) X10*3/uL Abs Immat Gran (auto) (0.00-0.03) X10*3/uL Absolute Neuts (auto) (2.0-8.3) x10*3/uL Absolute Nucleated RBC (0.0-0.012) X10*3/uL Nucleated RBC % (auto) (0.0-0.2) /100WBC D-Dimer High Sensitivty NG/ML Sodium (135-145) mmol/L Potassium (3.3-5.1) mmol/L Chloride (96-108) mmol/L Carbon Dioxide (22-29) mmol/L Anion Gap (12-20) BUN (9-16) mg/dL Creatinine (0.5-1.4) mg/dL Estim Creat Clear Calc Estimated GFR Random Glucose (60-115) mg/dL Calcium (8.4-10.2) mg/dL Magnesium (1.6-2.6) mg/dL Total Bilirubin (0.0-1.0) mg/dL AST (5-31) U/L ALT (0-31) U/L Alkaline Phosphatase (39-117) U/L Troponin I High Sens (<3.5-17.0) ng/L Total Protein (6.5-8.0) g/dL Albumin (3.5-5.0) g/dL Urine Color Urine Appearance Urine pH (5.0-9.0) Ur Specific [place] (1.005-1.025) Urine Protein (Neg-Trace) mg/dL Urine Glucose (UA) (Negative) mg/dL Urine Ketones (Negative) mg/dL Urine Blood (Negative) Urine Nitrite (Negative) Ur Leukocyte Esterase (Negative) Urine Test NEGATIVE (NEGATIVE) Influenza Type A (PCR) (Negative) Influenza Type B (PCR) (Negative) RSV RNA Qual (PCR) (Negative) SARS-CoV-2 RNA (RT-PCR) (Negative) <CARLOS Hernandez - Last Filed: 03/18/22 11:08> Lab Results 03/18/22 03/18/22 03/18/22 Range/Units 12:24 12:24 12:24 WBC 4.7 L (4.8-10.8) X10*3/uL RBC 4.03 L (4.20-5.50) X10*6/uL Hgb 10.2 L (12.0-16.0) g/dl Hct 31.9 L (37.0-47.0) % MCV 79.2 L (80.0-98.0) fL MCH 25.3 L (27.0-33.0) pg MCHC 32.0 (31.0-35.0) g/dl RDW 14.6 (11.0-16.0) % Plt Count 237 (160-400) X10*3/uL MPV 10.1 (9.4-12.3) fL Immature Gran % (Auto) 0.2 (0.0-0.4) % Neut % (Auto) 61.1 (45-73) % Lymph % (Auto) 29.3 (20-40) % Coles % (Auto) 6.2 (2-11) % Eos % (Auto) 2.8 (0-4) % Baso % (Auto) 0.4 (0-2) % Lymph # (Auto) 1.4 (1.2-4.9) X10*3/uL [place] # (Auto) 0.3 (0.1-1.2) X10*3/uL Eos # (Auto) 0.1 (0.0-0.4) X10*3/uL Baso # (Auto) 0.0 (0.0-0.2) X10*3/uL Abs Immat Gran (auto) 0.01 (0.00-0.03) X10*3/uL Absolute Neuts (auto) 2.9 (2.0-8.3) x10*3/uL Absolute Nucleated RBC 0.000 (0.0-0.012) X10*3/uL Nucleated RBC % (auto) 0.0 (0.0-0.2) /100WBC D-Dimer High Sensitivty NG/ML Sodium 139 (135-145) mmol/L Potassium 4.1 (3.3-5.1) mmol/L Chloride 111 H (96-108) mmol/L Carbon Dioxide 23 (22-29) mmol/L Anion Gap 9 L (12-20) BUN 8 L (9-16) mg/dL Creatinine 0.72 (0.5-1.4) mg/dL Estim Creat Clear Calc 113.0 Estimated GFR > 60 Random Glucose 79 (60-115) mg/dL Calcium 8.8 (8.4-10.2) mg/dL Magnesium 2.0 (1.6-2.6) mg/dL Total Bilirubin 0.3 (0.0-1.0) mg/dL AST 14 (5-31) U/L ALT 10 (0-31) U/L Alkaline Phosphatase 67 (39-117) U/L Troponin I High Sens < 3.5 (<3.5-17.0) ng/L Total Protein 6.6 (6.5-8.0) g/dL Albumin 3.9 (3.5-5.0) g/dL Urine Color Urine Appearance Urine pH (5.0-9.0) Ur Specific [place] (1.005-1.025) Urine Protein (Neg-Trace) mg/dL Urine Glucose (UA) (Negative) mg/dL Urine Ketones (Negative) mg/dL Urine Blood (Negative) Urine Nitrite (Negative) Ur Leukocyte Esterase (Negative) Urine Test (NEGATIVE) Influenza Type A (PCR) (Negative) Influenza Type B (PCR) (Negative) RSV RNA Qual (PCR) (Negative) SARS-CoV-2 RNA (RT-PCR) (Negative) 03/18/22 03/18/22 03/18/22 Range/Units 12:24 12:24 12:24 WBC (4.8-10.8) X10*3/uL RBC (4.20-5.50) X10*6/uL Hgb (12.0-16.0) g/dl Hct (37.0-47.0) % MCV (80.0-98.0) fL MCH (27.0-33.0) pg MCHC (31.0-35.0) g/dl RDW (11.0-16.0) % Plt Count (160-400) X10*3/uL MPV (9.4-12.3) fL Immature Gran % (Auto) (0.0-0.4) % Neut % (Auto) (45-73) % Lymph % (Auto) (20-40) % [place] % (Auto) (2-11) % Eos % (Auto) (0-4) % Baso % (Auto) (0-2) % Lymph # (Auto) (1.2-4.9) X10*3/uL [place] # (Auto) (0.1-1.2) X10*3/uL Eos # (Auto) (0.0-0.4) X10*3/uL Baso # (Auto) (0.0-0.2) X10*3/uL Abs Immat Gran (auto) (0.00-0.03) X10*3/uL Absolute Neuts (auto) (2.0-8.3) x10*3/uL Absolute Nucleated RBC (0.0-0.012) X10*3/uL Nucleated RBC % (auto) (0.0-0.2) /100WBC D-Dimer High Sensitivty 168 NG/ML Sodium (135-145) mmol/L Potassium (3.3-5.1) mmol/L Chloride (96-108) mmol/L Carbon Dioxide (22-29) mmol/L Anion Gap (12-20) BUN (9-16) mg/dL Creatinine (0.5-1.4) mg/dL Estim Creat Clear Calc Estimated GFR Random Glucose (60-115) mg/dL Calcium (8.4-10.2) mg/dL Magnesium (1.6-2.6) mg/dL Total Bilirubin (0.0-1.0) mg/dL AST (5-31) U/L ALT (0-31) U/L Alkaline Phosphatase (39-117) U/L Troponin I High Sens (<3.5-17.0) ng/L Total Protein (6.5-8.0) g/dL Albumin (3.5-5.0) g/dL Urine Color Yellow Urine Appearance Clear Urine pH 7.0 (5.0-9.0) Ur Specific [place] 1.010 (1.005-1.025) Urine Protein Negative (Neg-Trace) mg/dL Urine Glucose (UA) Negative (Negative) mg/dL Urine Ketones Negative (Negative) mg/dL Urine Blood Negative (Negative) Urine Nitrite Negative (Negative) Ur Leukocyte Esterase Negative (Negative) Urine Test (NEGATIVE) Influenza Type A (PCR) NEGATIVE (Negative) Influenza Type B (PCR) NEGATIVE (Negative) RSV RNA Qual (PCR) NEGATIVE (Negative) SARS-CoV-2 RNA (RT-PCR) NEGATIVE (Negative) 03/18/22 Range/Units 12:24 WBC (4.8-10.8) X10*3/uL RBC (4.20-5.50) X10*6/uL Hgb (12.0-16.0) g/dl Hct (37.0-47.0) % MCV (80.0-98.0) fL MCH (27.0-33.0) pg MCHC (31.0-35.0) g/dl RDW (11.0-16.0) % Plt Count (160-400) X10*3/uL MPV (9.4-12.3) fL Immature Gran % (Auto) (0.0-0.4) % Neut % (Auto) (45-73) % Lymph % (Auto) (20-40) % [place] % (Auto) (2-11) % Eos % (Auto) (0-4) % Baso % (Auto) (0-2) % Lymph # (Auto) (1.2-4.9) X10*3/uL [place] # (Auto) (0.1-1.2) X10*3/uL Eos # (Auto) (0.0-0.4) X10*3/uL Baso # (Auto) (0.0-0.2) X10*3/uL Abs Immat Gran (auto) (0.00-0.03) X10*3/uL Absolute Neuts (auto) (2.0-8.3) x10*3/uL Absolute Nucleated RBC (0.0-0.012) X10*3/uL Nucleated RBC % (auto) (0.0-0.2) /100WBC D-Dimer High Sensitivty NG/ML Sodium (135-145) mmol/L Potassium (3.3-5.1) mmol/L Chloride (96-108) mmol/L Carbon Dioxide (22-29) mmol/L Anion Gap (12-20) BUN (9-16) mg/dL Creatinine (0.5-1.4) mg/dL Estim Creat Clear Calc Estimated GFR Random Glucose (60-115) mg/dL Calcium (8.4-10.2) mg/dL Magnesium (1.6-2.6) mg/dL Total Bilirubin (0.0-1.0) mg/dL AST (5-31) U/L ALT (0-31) U/L Alkaline Phosphatase (39-117) U/L Troponin I High Sens (<3.5-17.0) ng/L Total Protein (6.5-8.0) g/dL Albumin (3.5-5.0) g/dL Urine Color Urine Appearance Urine pH (5.0-9.0) Ur Specific [place] (1.005-1.025) Urine Protein (Neg-Trace) mg/dL Urine Glucose (UA) (Negative) mg/dL Urine Ketones (Negative) mg/dL Urine Blood (Negative) Urine Nitrite (Negative) Ur Leukocyte Esterase (Negative) Urine Test NEGATIVE (NEGATIVE) Influenza Type A (PCR) (Negative) Influenza Type B (PCR) (Negative) RSV RNA Qual (PCR) (Negative) SARS-CoV-2 RNA (RT-PCR) (Negative) <Jair Garcia MD - Last Filed: 03/18/22 16:27> Independent Interpretation I performed an independent interpretation of an: CT Scan (CT angiogram of the chest: No PE.) <Jair Garcia MD - Last Filed: 03/18/22 16:27> Radiology Impression Discussion of test interpretation with radiology: I have reviewed the radiologist's reading. <Jair Garcia MD - Last Filed: 03/18/22 16:27> Discharge Plan Discharge Clinical Impression: Pleurisy, Dehydration <CARLOS Hernandez - Last Filed: 03/18/22 11:08> Patient Disposition: Home, Self-Care <CARLOS Hernandez - Last Filed: 03/18/22 11:08> Instructions: Pleurisy (ED) <CARLOS Hernandez - Last Filed: 03/18/22 11:08> Prescriptions: No Action ibuprofen 600 mg tablet 600 mg PO Q6H PRN (Reason: pain) Qty: 30 0RF lorazepam [Ativan] 0.5 mg tablet 0.5 mg PO BID PRN (Reason: anxiety) 4 Days Qty: 8 0RF sucralfate [Carafate] 1 gram tablet 1 g PO BID Qty: 30 0RF ondansetron 4 mg tablet,disintegrating 4 mg PO Q8H PRN (Reason: nausea and vomiting) Qty: 7 0RF erythromycin 5 mg/gram (0.5 %) ointment 0.5 inch ophthalmic (eye) BID 7 Days Qty: 3.5 0RF cephalexin 500 mg capsule 500 mg PO BID 7 Days Qty: 14 0RF alum-mag hydroxide-simeth [Maalox Maximum Strength] 400-400-40 mg/5 mL suspension 10 ml PO TID PRN (Reason: indigestion) Qty: 100 0RF cholecalciferol (vitamin D3) 50 mcg (2,000 unit) tablet 50 mcg PO DAILY metoprolol succinate 25 mg tablet extended release 24 hr 12.5 mg PO BID magnesium oxide 400 mg (241.3 mg magnesium) tablet 400 mg PO DAILY 30 Days Qty: 30 2RF <CARLOS Hernandez - Last Filed: 03/18/22 11:08> Referrals: Uriel Soria MD [Primary Care Provider] - <CARLOS Hernandez - Last Filed: 03/18/22 11:08> Stand Alone Forms: Work/School Release <CARLOS Hernandez - Last Filed: 03/18/22 11:08>
[2022-03-18 12:15] VITALS: BP 130/59; PULSE 72; RESP 12; O2SAT 100
[2022-03-18 12:31] LABS: MANUAL DIFF FLAG NO
[2022-03-18 12:34] LABS: Basophils Percent Auto 0.4 % (0-2); Eosinophils Absolute Auto 0.1 X10*3/uL (0.0-0.4); Eosinophils Percent Auto 2.8 % (0-4); Hematocrit 31.9 % (37.0-47.0); Hemoglobin 10.2 g/dl (12.0-16.0); Imm Gran Abs Auto 0.01 X10*3/uL (0.00-0.03); Imm Gran Pct Auto 0.2 % (0.0-0.4); Lymphocytes Absolute Auto 1.4 X10*3/uL (1.2-4.9); Lymphocytes Percent Auto 29.3 % (20-40); Mean Corpuscular Hemoglobin 25.3 pg (27.0-33.0); Mean Corpuscular Volume 79.2 fL (80.0-98.0); Mean Platelet Volume 10.1 fL (9.4-12.3); Monocytes Absolute Auto 0.3 X10*3/uL (0.1-1.2); Monocytes Percent Auto 6.2 % (2-11); Neutrophils Absolute Auto 2.9 x10*3/uL (2.0-8.3); Neutrophils Percent Auto 61.1 % (45-73); Platelet Count 237 X10*3/uL (160-400); Red Blood Count 4.03 X10*6/uL (4.20-5.50); Red Cell Distribution Width 14.6 % (11.0-16.0); White Blood Count 4.7 X10*3/uL (4.8-10.8)
[2022-03-18 12:37] LABS: Appearance Urine Clear; Color Urine Yellow; Glucose Urine UA Negative (Negative); Leukocyte Esterase Urine Negative (Negative); Nitrite Urine Negative (Negative); Urine Blood Negative (Negative); Urine Ketones Negative (Negative); Urine Protein Negative (Neg-Trace)
[2022-03-18 12:38] LABS: UPreg QC Valid YES; Urine Pregnancy NEGATIVE (NEGATIVE)
[2022-03-18 12:40] LABS: D Dimer High Sensitivity 168 NG/ML
[2022-03-18 12:50] LABS: Alanine Aminotransferase 10 U/L (0-31); Albumin Level 3.9 g/dL (3.5-5.0); Alkaline Phosphatase 67 U/L (39-117); Anion Gap 9 (12-20); Aspartate Amino Transferase 14 U/L (5-31); Bilirubin Total 0.3 mg/dL (0.0-1.0); Blood Urea Nitrogen 8 mg/dL (9-16); Calcium 8.8 mg/dL (8.4-10.2); Carbon Dioxide 23 mmol/L (22-29); Chloride 111 mmol/L (96-108); Estimated Glomerular Filt Rate > 60; Glucose Random 79 mg/dL (60-115); Potassium 4.1 mmol/L (3.3-5.1); Sodium 139 mmol/L (135-145); Total Protein 6.6 g/dL (6.5-8.0)
[2022-03-18 12:57] LABS: Troponin-I High Sensitivity < 3.5 ng/L (<3.5-17.0)
[2022-03-18 13:51] LABS: Influenza A PCR NEGATIVE (Negative); Influenza B PCR NEGATIVE (Negative); Resp Syncy Virus RNA Qual PCR NEGATIVE (Negative); SARS COV2 PCR INHOUSE NEGATIVE (Negative)
--- NOTE | 2022-03-18 14:26 | PC.NURSE ---
ambulation trial - pt SaO2 dropped to 90%. informed MD
[2022-03-18 14:58] VITALS: BP 122/70; PULSE 77; RESP 17; O2SAT 100
[2022-03-18] MEDS: 0.9 % Sodium Chloride 1,000 ML 999 ML IV (15:40)
[2022-03-18] MEDS: iohexoL 350 MG/ML 100 ML INFUS..BTL IV (16:04)
[2022-03-18 16:37] VITALS: BP 97/64; PULSE 83; RESP 16; TEMP 36.9; O2SAT 100
== END 2022-03-18 17:22 | disposition home or self-care (01) ==
PROVIDERS: Physician Assistant Medical; Emergency Provider Emergency Medicine; PCP Family Medicine
DX: R09.1 Pleurisy (principal); E86.0 Dehydration; R07.89 Other chest pain; R06.02 Shortness of breath; Z20.822 Contact with and (suspected) exposure to COVID-19; Z79.899 Other long term (current) drug therapy
CPT/HCPCS: 0241U; 36415; 71275; 80053; 81003; 81025; 83735; 84484; 85025; 85379; 93005; 99284; Q9967

== ENCOUNTER 2022-03-27 15:01 | Emergency (ER) | payer OTHER, SELFPAY ==
--- NOTE | ~2022-03-27 | XR_ITS ---
EXAMINATION: XR CHEST CLINICAL INFORMATION: Chest pain COMPARISON: 11/27/2021 TECHNIQUE: 2 views of the chest were obtained. FINDINGS: No significant abnormality is noted involving the heart, lungs, mediastinum, bony thorax or soft tissues. XR/XR chest 2V IMPRESSION: Unremarkable examination.
[2022-03-27 15:07] VITALS: BP 112/55; PULSE 78; RESP 18; TEMP 36.4; O2SAT 100; BMI 28.7
--- NOTE | 2022-03-27 15:09 | ECG_ITS ---
Test Reason : CHEST PAIN Blood Pressure : / mmHG Vent. Rate : 075 BPM Atrial Rate : 075 BPM P-R Int : 118 ms QRS Dur : 086 ms QT Int : 380 ms P-R-T Axes : 065 050 061 degrees QTc Int : 424 ms Normal sinus rhythm Normal ECG When compared with ECG of 18-MAR-2022 11:02, No significant change was found Referred By: Jaci Kwong Electronically Signed By:Jared Whitt
--- NOTE | 2022-03-27 15:10 | ED.CHESTPAIN ---
HPI - Chest Pain General Chief Complaint: Chest Pain Stated Complaint: Chest Pain since 12 Time Seen by Provider: 03/27/22 16:45 Related Data Home Medications Medication Instructions Recorded Confirmed cholecalciferol (vitamin D3) 50 50 mcg PO DAILY 09/28/21 10/12/21 mcg (2,000 unit) tablet metoprolol succinate 25 mg 12.5 mg PO BID 10/12/21 10/12/21 tablet,extended release 24 hr Previous Rx's Medication Instructions Recorded ibuprofen 600 mg tablet 600 mg PO Q6H PRN pain #30 tabs 08/17/21 lorazepam 0.5 mg tablet (Ativan) 0.5 mg PO BID PRN anxiety 4 days 09/08/21 #8 tabs magnesium oxide 400 mg (241.3 mg 400 mg PO DAILY 30 days #30 tabs 10/12/21 magnesium) tablet ondansetron 4 mg disintegrating 4 mg PO Q8H PRN nausea and 11/05/21 tablet vomiting #7 tabs sucralfate 1 gram tablet (Carafate) 1 g PO BID #30 tabs 11/05/21 cephalexin 500 mg capsule 500 mg PO BID 7 days #14 caps 11/14/21 erythromycin 5 mg/gram (0.5 %) eye 0.5 inch ophthalmic (eye) BID 7 11/14/21 ointment days #3.5 grams aluminum-mag hydroxide-simethicone 10 ml PO TID PRN indigestion #100 11/27/21 400 mg-400 mg-40 mg/5 mL oral susp mL (Maalox Maximum Strength) Allergies Allergy/AdvReac Type Severity Reaction Status Date / Time vancomycin Allergy Swelling Verified 11/11/21 17:46 [facility] Past Medical History Medical History Anxiety Asthma PFO (patent foramen ovale) Surgical History No pertinent past surgical history Family History Family History Father Stomach cancer Mother DM (diabetes mellitus) Cancer HTN (hypertension) Hypercholesteremia Social History Social History Household Members: Family Alcohol intake: never Patient Tobacco Use Status: Former Tobacco user Advance Directives: No Advance Directives Information Provided: Yes Current occupational status: unemployed Physical Exam Vital Signs: Vital Signs: Last Vital Signs Temp 97.5 F 03/27/22 15:07 Pulse 78 03/27/22 15:07 Resp 18 03/27/22 15:07 BP 112/55 L 03/27/22 15:07 Pulse Ox 100 03/27/22 15:07 O2 Del Method 03/27/22 15:07 BMI result Body Mass Index 28.7 Course Course Course Narrative: RME - 26 yo female with history of PFO, history of paroxysmal afib on metoprolol and ASA who presents to the ER with 2 episodes of left sided chest pain that started today at noon. She reports associated palpitations, lightheaded and dizziness. Vital signs stable on arrival. Given her history will check chest x-ray, labs, EKG. Medical Decision Making Lab Data 03/27/22 15:19 03/27/22 15:19 Labs: Lab Results 03/27/22 03/27/22 03/27/22 Range/Units 15:19 15:19 15:19 WBC 7.2 (4.8-10.8) X10*3/uL RBC 4.06 L (4.20-5.50) X10*6/uL Hgb 10.1 L (12.0-16.0) g/dl Hct 32.3 L (37.0-47.0) % MCV 79.6 L (80.0-98.0) fL MCH 24.9 L (27.0-33.0) pg MCHC 31.3 (31.0-35.0) g/dl RDW 14.5 (11.0-16.0) % Plt Count 281 (160-400) X10*3/uL MPV 10.4 (9.4-12.3) fL Immature Gran % (Auto) 0.4 (0.0-0.4) % Neut % (Auto) 61.5 (45-73) % Lymph % (Auto) 26.7 (20-40) % [place] % (Auto) 8.1 (2-11) % Eos % (Auto) 2.9 (0-4) % Baso % (Auto) 0.4 (0-2) % Lymph # (Auto) 1.9 (1.2-4.9) X10*3/uL [place] # (Auto) 0.6 (0.1-1.2) X10*3/uL Eos # (Auto) 0.2 (0.0-0.4) X10*3/uL Baso # (Auto) 0.0 (0.0-0.2) X10*3/uL Abs Immat Gran (auto) 0.03 (0.00-0.03) X10*3/uL Absolute Neuts (auto) 4.4 (2.0-8.3) x10*3/uL Absolute Nucleated RBC 0.000 (0.0-0.012) X10*3/uL Nucleated RBC % (auto) 0.0 (0.0-0.2) /100WBC Sodium 137 (135-145) mmol/L Potassium 4.6 (3.3-5.1) mmol/L Chloride 107 (96-108) mmol/L Carbon Dioxide 25 (22-29) mmol/L Anion Gap 10 L (12-20) BUN 11 (9-16) mg/dL Creatinine 0.69 (0.5-1.4) mg/dL Estim Creat Clear Calc 118.6 Estimated GFR > 60 Random Glucose 81 (60-115) mg/dL Calcium 9.4 D (8.4-10.2) mg/dL Magnesium 2.0 (1.6-2.6) mg/dL Total Bilirubin 0.3 (0.0-1.0) mg/dL Direct Bilirubin < 0.2 (0.0-0.5) mg/dL AST 15 (5-31) U/L ALT 12 (0-31) U/L Alkaline Phosphatase 80 (39-117) U/L Troponin I High Sens < 3.5 (<3.5-17.0) ng/L Total Protein 6.9 (6.5-8.0) g/dL Albumin 4.1 (3.5-5.0) g/dL Discharge Plan Discharge Clinical Impression: Anxiety, Atypical chest pain Patient Disposition: Home, Self-Care Instructions: Noncardiac Chest Pain (ED), Anxiety (ED) Additional Instructions: Drink plenty fluids Continue anxiety medication 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 Prescriptions: No Action ibuprofen 600 mg tablet 600 mg PO Q6H PRN (Reason: pain) Qty: 30 0RF lorazepam [Ativan] 0.5 mg tablet 0.5 mg PO BID PRN (Reason: anxiety) 4 Days Qty: 8 0RF sucralfate [Carafate] 1 gram tablet 1 g PO BID Qty: 30 0RF ondansetron 4 mg tablet,disintegrating 4 mg PO Q8H PRN (Reason: nausea and vomiting) Qty: 7 0RF erythromycin 5 mg/gram (0.5 %) ointment 0.5 inch ophthalmic (eye) BID 7 Days Qty: 3.5 0RF cephalexin 500 mg capsule 500 mg PO BID 7 Days Qty: 14 0RF alum-mag hydroxide-simeth [Maalox Maximum Strength] 400-400-40 mg/5 mL suspension 10 ml PO TID PRN (Reason: indigestion) Qty: 100 0RF cholecalciferol (vitamin D3) 50 mcg (2,000 unit) tablet 50 mcg PO DAILY metoprolol succinate 25 mg tablet extended release 24 hr 12.5 mg PO BID magnesium oxide 400 mg (241.3 mg magnesium) tablet 400 mg PO DAILY 30 Days Qty: 30 2RF Interventions: ED Discharge Assessment Last Done: 03/27/22 17:10 Discharge Date/Time: 03/27/22 17:10
[2022-03-27 15:25] LABS: MANUAL DIFF FLAG NO
[2022-03-27 15:49] LABS: Basophils Percent Auto 0.4 % (0-2); Eosinophils Absolute Auto 0.2 X10*3/uL (0.0-0.4); Eosinophils Percent Auto 2.9 % (0-4); Hematocrit 32.3 % (37.0-47.0); Hemoglobin 10.1 g/dl (12.0-16.0); Imm Gran Abs Auto 0.03 X10*3/uL (0.00-0.03); Imm Gran Pct Auto 0.4 % (0.0-0.4); Lymphocytes Absolute Auto 1.9 X10*3/uL (1.2-4.9); Lymphocytes Percent Auto 26.7 % (20-40); Mean Corpuscular HGB Conc 31.3 g/dl (31.0-35.0); Mean Corpuscular Hemoglobin 24.9 pg (27.0-33.0); Mean Corpuscular Volume 79.6 fL (80.0-98.0); Mean Platelet Volume 10.4 fL (9.4-12.3); Monocytes Absolute Auto 0.6 X10*3/uL (0.1-1.2); Monocytes Percent Auto 8.1 % (2-11); Neutrophils Absolute Auto 4.4 x10*3/uL (2.0-8.3); Neutrophils Percent Auto 61.5 % (45-73); Platelet Count 281 X10*3/uL (160-400); Red Blood Count 4.06 X10*6/uL (4.20-5.50); Red Cell Distribution Width 14.5 % (11.0-16.0); White Blood Count 7.2 X10*3/uL (4.8-10.8)
[2022-03-27 16:01] LABS: Alanine Aminotransferase 12 U/L (0-31); Albumin Level 4.1 g/dL (3.5-5.0); Alkaline Phosphatase 80 U/L (39-117); Anion Gap 10 (12-20); Aspartate Amino Transferase 15 U/L (5-31); Bilirubin Direct < 0.2 mg/dL (0.0-0.5); Bilirubin Total 0.3 mg/dL (0.0-1.0); Blood Urea Nitrogen 11 mg/dL (9-16); Calcium 9.4 mg/dL (8.4-10.2); Carbon Dioxide 25 mmol/L (22-29); Chloride 107 mmol/L (96-108); Creatinine Clr Calc Pharmacy 118.6; Estimated Glomerular Filt Rate > 60; Glucose Random 81 mg/dL (60-115); Potassium 4.6 mmol/L (3.3-5.1); Sodium 137 mmol/L (135-145); Total Protein 6.9 g/dL (6.5-8.0)
[2022-03-27 16:09] LABS: Troponin-I High Sensitivity < 3.5 ng/L (<3.5-17.0)
--- NOTE | 2022-03-27 16:46 | ED.CHESTPAIN ---
HPI - Chest Pain General Chief Complaint: Chest Pain Stated Complaint: Chest Pain since 12 Time Seen by Provider: 03/27/22 16:45 Source: patient Mode of arrival: ambulatory Limitations: no limitations History of Present Illness HPI narrative: Patient with history of lone atrial fibrillation 03/08 status post cardioversion been to our ER multiple times for chest pain with palpitation lasting only for few seconds patient never checked her heart rate has history of anxiety also patient been having chest pain for more than 2 years with multiple ED visits patient labs were done before my evaluation normal troponin normal cardiogram and normal vitals Related Data Home Medications Medication Instructions Recorded Confirmed cholecalciferol (vitamin D3) 50 50 mcg PO DAILY 09/28/21 10/12/21 mcg (2,000 unit) tablet metoprolol succinate 25 mg 12.5 mg PO BID 10/12/21 10/12/21 tablet,extended release 24 hr Previous Rx's Medication Instructions Recorded ibuprofen 600 mg tablet 600 mg PO Q6H PRN pain #30 tabs 08/17/21 lorazepam 0.5 mg tablet (Ativan) 0.5 mg PO BID PRN anxiety 4 days 09/08/21 #8 tabs magnesium oxide 400 mg (241.3 mg 400 mg PO DAILY 30 days #30 tabs 10/12/21 magnesium) tablet ondansetron 4 mg disintegrating 4 mg PO Q8H PRN nausea and 11/05/21 tablet vomiting #7 tabs sucralfate 1 gram tablet (Carafate) 1 g PO BID #30 tabs 11/05/21 cephalexin 500 mg capsule 500 mg PO BID 7 days #14 caps 11/14/21 erythromycin 5 mg/gram (0.5 %) eye 0.5 inch ophthalmic (eye) BID 7 11/14/21 ointment days #3.5 grams aluminum-mag hydroxide-simethicone 10 ml PO TID PRN indigestion #100 11/27/21 400 mg-400 mg-40 mg/5 mL oral susp mL (Maalox Maximum Strength) Allergies Allergy/AdvReac Type Severity Reaction Status Date / Time vancomycin Allergy Swelling Verified 11/11/21 17:46 Review of Systems Review of Systems: Yes all other systems are reviewed and are negative PMFSH Past Medical History Medical History Anxiety Asthma PFO (patent foramen ovale) Surgical History No pertinent past surgical history Family History Family History Father Stomach cancer Mother DM (diabetes mellitus) Cancer HTN (hypertension) Hypercholesteremia Social History Social History Household Members: Family Alcohol intake: never Patient Tobacco Use Status: Former Tobacco user Advance Directives: No Advance Directives Information Provided: Yes Current occupational status: unemployed Physical Exam Vital Signs: Vital Signs: Last Vital Signs Temp 97.5 F 03/27/22 15:07 Pulse 78 03/27/22 15:07 Resp 18 03/27/22 15:07 BP 112/55 L 03/27/22 15:07 Pulse Ox 100 03/27/22 15:07 O2 Del Method 03/27/22 15:07 BMI result Body Mass Index 28.7 Appearance: Alert. Oriented X3. No acute distress. Anxious Eyes: PERRLA, No Nystagmus ENT: Pharynx normal. Oral Mucosa moist Neck: Normal inspection. Neck supple. CVS: Normal heart rate and rhythm. Pulses normal. Respiratory: No respiratory distress. Equal air entry bilateral, no wheezing/rales/rhonchi Abdomen: Soft and nontender. Bowel sounds are present, no mass palpable, no CVA tenderness Skin: Skin warm and dry. Normal skin color. Normal skin turgor. Extremities: No lower extremity edema. No calf tenderness Neuro: Oriented X 3. No motor deficit. Medical Decision Making Medical Decision Making [facility] Narrative: Patient with heart score of 0 with history of lone fibrillation multiple ED visits for chest pain normal cardiogram normal troponin will discharge patient home advised to follow with PCP Lab Data MDM Lab Attestation statement: I reviewed the patient's lab results. 03/27/22 15:19 03/27/22 15:19 Labs: Lab Results 03/27/22 03/27/22 03/27/22 Range/Units 15:19 15:19 15:19 WBC 7.2 (4.8-10.8) X10*3/uL RBC 4.06 L (4.20-5.50) X10*6/uL Hgb 10.1 L (12.0-16.0) g/dl Hct 32.3 L (37.0-47.0) % MCV 79.6 L (80.0-98.0) fL MCH 24.9 L (27.0-33.0) pg MCHC 31.3 (31.0-35.0) g/dl RDW 14.5 (11.0-16.0) % Plt Count 281 (160-400) X10*3/uL MPV 10.4 (9.4-12.3) fL Immature Gran % (Auto) 0.4 (0.0-0.4) % Neut % (Auto) 61.5 (45-73) % Lymph % (Auto) 26.7 (20-40) % [place] % (Auto) 8.1 (2-11) % Eos % (Auto) 2.9 (0-4) % Baso % (Auto) 0.4 (0-2) % Lymph # (Auto) 1.9 (1.2-4.9) X10*3/uL [place] # (Auto) 0.6 (0.1-1.2) X10*3/uL Eos # (Auto) 0.2 (0.0-0.4) X10*3/uL Baso # (Auto) 0.0 (0.0-0.2) X10*3/uL Abs Immat Gran (auto) 0.03 (0.00-0.03) X10*3/uL Absolute Neuts (auto) 4.4 (2.0-8.3) x10*3/uL Absolute Nucleated RBC 0.000 (0.0-0.012) X10*3/uL Nucleated RBC % (auto) 0.0 (0.0-0.2) /100WBC Sodium 137 (135-145) mmol/L Potassium 4.6 (3.3-5.1) mmol/L Chloride 107 (96-108) mmol/L Carbon Dioxide 25 (22-29) mmol/L Anion Gap 10 L (12-20) BUN 11 (9-16) mg/dL Creatinine 0.69 (0.5-1.4) mg/dL Estim Creat Clear Calc 118.6 Estimated GFR > 60 Random Glucose 81 (60-115) mg/dL Calcium 9.4 D (8.4-10.2) mg/dL Magnesium 2.0 (1.6-2.6) mg/dL Total Bilirubin 0.3 (0.0-1.0) mg/dL Direct Bilirubin < 0.2 (0.0-0.5) mg/dL AST 15 (5-31) U/L ALT 12 (0-31) U/L Alkaline Phosphatase 80 (39-117) U/L Troponin I High Sens < 3.5 (<3.5-17.0) ng/L Total Protein 6.9 (6.5-8.0) g/dL Albumin 4.1 (3.5-5.0) g/dL Independent Interpretation I performed an independent interpretation of an: EKG Interpretation: Normal sinus rhythm heart rate 75 beats per minute normal interval normal axis no acute ST change and no acute ischemia Discharge Plan Discharge Clinical Impression: Anxiety, Atypical chest pain Patient Disposition: Home, Self-Care Instructions: Noncardiac Chest Pain (ED), Anxiety (ED) Additional Instructions: Drink plenty fluids Continue anxiety medication 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 Prescriptions: No Action ibuprofen 600 mg tablet 600 mg PO Q6H PRN (Reason: pain) Qty: 30 0RF lorazepam [Ativan] 0.5 mg tablet 0.5 mg PO BID PRN (Reason: anxiety) 4 Days Qty: 8 0RF sucralfate [Carafate] 1 gram tablet 1 g PO BID Qty: 30 0RF ondansetron 4 mg tablet,disintegrating 4 mg PO Q8H PRN (Reason: nausea and vomiting) Qty: 7 0RF erythromycin 5 mg/gram (0.5 %) ointment 0.5 inch ophthalmic (eye) BID 7 Days Qty: 3.5 0RF cephalexin 500 mg capsule 500 mg PO BID 7 Days Qty: 14 0RF alum-mag hydroxide-simeth [Maalox Maximum Strength] 400-400-40 mg/5 mL suspension 10 ml PO TID PRN (Reason: indigestion) Qty: 100 0RF cholecalciferol (vitamin D3) 50 mcg (2,000 unit) tablet 50 mcg PO DAILY metoprolol succinate 25 mg tablet extended release 24 hr 12.5 mg PO BID magnesium oxide 400 mg (241.3 mg magnesium) tablet 400 mg PO DAILY 30 Days Qty: 30 2RF
== END 2022-03-27 17:10 | disposition home or self-care (01) ==
PROVIDERS: Physician Assistant; Emergency Provider Internal Medicine
DX: F41.9 Anxiety disorder, unspecified (principal); R07.89 Other chest pain; Z87.891 Personal history of nicotine dependence; Z79.899 Other long term (current) drug therapy
CPT/HCPCS: 36415; 71046; 80048; 80076; 83735; 84484; 85025; 93005; 99283

== ENCOUNTER 2022-04-18 10:17 | Emergency (ER) | payer OTHER, SELFPAY ==
[2022-04-18 10:26] VITALS: BP 119/59; PULSE 93; RESP 20; TEMP 36.7; O2SAT 100; BMI 29.5
[2022-04-18 10:48] LABS: Hematocrit 33.2 % (37.0-47.0); Hemoglobin 10.4 g/dl (12.0-16.0); Mean Corpuscular HGB Conc 31.3 g/dl (31.0-35.0); Mean Corpuscular Hemoglobin 24.9 pg (27.0-33.0); Mean Corpuscular Volume 79.6 fL (80.0-98.0); Mean Platelet Volume 10.5 fL (9.4-12.3); Platelet Count 289 X10*3/uL (160-400); Red Blood Count 4.17 X10*6/uL (4.20-5.50); Red Cell Distribution Width 15.3 % (11.0-16.0); White Blood Count 4.5 X10*3/uL (4.8-10.8)
[2022-04-18 11:03] LABS: Alanine Aminotransferase 9 U/L (0-31); Albumin Level 4.1 g/dL (3.5-5.0); Alkaline Phosphatase 75 U/L (39-117); Anion Gap 10 (12-20); Aspartate Amino Transferase 12 U/L (5-31); Bilirubin Direct 0.2 mg/dL (0.0-0.5); Bilirubin Total 0.5 mg/dL (0.0-1.0); Blood Urea Nitrogen 9 mg/dL (9-16); Calcium 9.3 mg/dL (8.4-10.2); Carbon Dioxide 24 mmol/L (22-29); Chloride 110 mmol/L (96-108); Creatinine Clr Calc Pharmacy 102.5; Estimated Glomerular Filt Rate > 60; Glucose Random 86 mg/dL (60-115); Lipase 16 U/L (8-78); Potassium 3.9 mmol/L (3.3-5.1); Sodium 140 mmol/L (135-145); Total Protein 6.9 g/dL (6.5-8.0)
[2022-04-18 12:50] LABS: HCG Quantitative < 2 mIU/mL
[2022-04-18 13:57] LABS: Appearance Urine Clear; Color Urine Yellow; Glucose Urine UA Negative (Negative); Leukocyte Esterase Urine Negative (Negative); Nitrite Urine Negative (Negative); Specific Gravity - Urine <= 1.005 (1.005-1.025); UMIC TRIGGER UACC YES; Urine Blood Small (1+) (Negative); Urine Ketones Negative (Negative); Urine Protein Negative (Neg-Trace)
[2022-04-18 14:08] LABS: Bacteria Urine None Seen (None Seen); Hyaline Casts Urine 0-2 /LPF (0-2); RBC Urine 0-2 /HPF (0-2); Squamous Epithelial Cell Urine 0-2 /HPF (0-2); WBC Urine 0-5 /HPF (0-5)
--- NOTE | 2022-04-18 14:26 | ED.ABDPAIN ---
HPI - Abdominal Pain General Chief Complaint: Abdominal Pain Stated Complaint: Abd pain/Chest pain Time Seen by Provider: 04/18/22 12:12 Source: patient Mode of arrival: ambulatory History of Present Illness HPI narrative: 26-year-old female with a history of IBS presents with complaints of 1 week of generalized abdominal discomfort associated with nausea but is continued to pass flatus and have bowel movements. This is not been associated with any fever or chills and patient denies any urinary symptoms. Patient is currently being followed by Gastroenterology and has a follow-up appointment. Related Data Home Medications Medication Instructions Recorded Confirmed cholecalciferol (vitamin D3) 50 50 mcg PO DAILY 09/28/21 10/12/21 mcg (2,000 unit) tablet metoprolol succinate 25 mg 12.5 mg PO BID 10/12/21 10/12/21 tablet,extended release 24 hr Previous Rx's Medication Instructions Recorded ibuprofen 600 mg tablet 600 mg PO Q6H PRN pain #30 tabs 08/17/21 lorazepam 0.5 mg tablet (Ativan) 0.5 mg PO BID PRN anxiety 4 days 09/08/21 #8 tabs magnesium oxide 400 mg (241.3 mg 400 mg PO DAILY 30 days #30 tabs 10/12/21 magnesium) tablet ondansetron 4 mg disintegrating 4 mg PO Q8H PRN nausea and 11/05/21 tablet vomiting #7 tabs sucralfate 1 gram tablet (Carafate) 1 g PO BID #30 tabs 11/05/21 cephalexin 500 mg capsule 500 mg PO BID 7 days #14 caps 11/14/21 erythromycin 5 mg/gram (0.5 %) eye 0.5 inch ophthalmic (eye) BID 7 11/14/21 ointment days #3.5 grams aluminum-mag hydroxide-simethicone 10 ml PO TID PRN indigestion #100 11/27/21 400 mg-400 mg-40 mg/5 mL oral susp mL (Maalox Maximum Strength) dicyclomine 10 mg capsule 10 mg PO BID PRN abdominal 04/18/22 cramping #7 caps Allergies Allergy/AdvReac Type Severity Reaction Status Date / Time vancomycin Allergy Swelling Verified 11/11/21 17:46 Review of Systems Review of Systems Pertinent positives and negatives as stated in HPI PMFSH Past Medical History Source: nursing notes reviewed Medical History Anxiety Asthma PFO (patent foramen ovale) Surgical History No pertinent past surgical history Family History Family History Father Stomach cancer Mother DM (diabetes mellitus) Cancer HTN (hypertension) Hypercholesteremia Social History Social History Household Members: Family Alcohol intake: never Patient Tobacco Use Status: Former Tobacco user Advance Directives: No Advance Directives Information Provided: No Current occupational status: unemployed Physical Exam ED Vital Signs: Vital Signs - 24 hr 04/18/22 10:26 Temperature 98.1 F Pulse Rate 93 Respiratory Rate 20 Blood Pressure 119/59 L Pulse Oximetry 100 Oxygen Delivery Method Room Air BMI result Body Mass Index 29.5 VITAL SIGNS: Reviewed. GENERAL: Well developed, well nourished, in no acute distress. HEAD: Normocephalic/atraumatic EYES: PERRLA, EOMI EARS: Ext canals without abnormality OROPHARYNX: no oral lesions noted, posterior pharynx clear LUNGS: Normal breath sounds. No adventitious sounds or accessory muscle use. SpO2<100> CARDIOVASCULAR: Regular rate and rhythm without noted murmurs ABDOMEN: Soft, generalized discomfort without palpation of mass, non-distended with bowel sounds. MUSCULOSKELETAL: No tenderness, deformities, or effusions noted on gross inspection. EXTREMITIES: No cyanosis, clubbing or edema. SKIN: Inspection of the skin reveals no rashes NEUROLOGIC: Alert and oriented x 4. Strength and sensation to light touch were grossly intact x 4. Medical Decision Making Medical Decision Making [facility] Narrative: 26-year-old female with abdominal discomfort. Labs, urinalysis on review are without acute findings patient's lab work appears to be chronically stable. Patient given a trial of Zofran and Bentyl. Differential Diagnosis Differential Diagnoses: The differential diagnosis associated with the presentation includes Please see the discussion above Lab Data [facility] Lab Attestation statement: I reviewed the patient's lab results. Please see the discussion above 04/18/22 10:34 04/18/22 10:34 Labs: Lab Results 02/01/23 02/01/23 02/01/23 Range/Units 10:34 10:34 13:45 WBC 4.5 L (4.8-10.8) X10*3/uL RBC 4.17 L (4.20-5.50) X10*6/uL Hgb 10.4 L (12.0-16.0) g/dl Hct 33.2 L (37.0-47.0) % MCV 79.6 L (80.0-98.0) fL MCH 24.9 L (27.0-33.0) pg MCHC 31.3 (31.0-35.0) g/dl RDW 15.3 (11.0-16.0) % Plt Count 289 (160-400) X10*3/uL MPV 10.5 (9.4-12.3) fL Absolute Nucleated RBC 0.000 (0.0-0.012) X10*3/uL Nucleated RBC % (auto) 0.0 (0.0-0.2) /100WBC Sodium 140 (135-145) mmol/L Potassium 3.9 (3.3-5.1) mmol/L Chloride 110 H (96-108) mmol/L Carbon Dioxide 24 (22-29) mmol/L Anion Gap 10 L (12-20) BUN 9 (9-16) mg/dL Creatinine 0.81 (0.5-1.4) mg/dL Estim Creat Clear Calc 102.5 Estimated GFR > 60 Random Glucose 86 (60-115) mg/dL Calcium 9.3 (8.4-10.2) mg/dL Total Bilirubin 0.5 (0.0-1.0) mg/dL Direct Bilirubin 0.2 (0.0-0.5) mg/dL AST 12 (5-31) U/L ALT 9 (0-31) U/L Alkaline Phosphatase 75 (39-117) U/L Total Protein 6.9 (6.5-8.0) g/dL Albumin 4.1 (3.5-5.0) g/dL Lipase 16 (8-78) U/L Beta HCG, Quant < 2 mIU/mL Urine Color Yellow Urine Appearance Clear Urine pH 8.0 (5.0-9.0) Ur Specific [place] <= 1.005 (1.005-1.025) Urine Protein Negative (Neg-Trace) mg/dL Urine Glucose (UA) Negative (Negative) mg/dL Urine Ketones Negative (Negative) mg/dL Urine Blood Small (1+) H (Negative) Urine Nitrite Negative (Negative) Ur Leukocyte Esterase Negative (Negative) Urine RBC 0-2 (0-2) /HPF Urine WBC 0-5 (0-5) /HPF Ur Squamous Epith Cells 0-2 (0-2) /HPF Urine Bacteria None Seen (None Seen) Hyaline Casts 0-2 (0-2) /LPF External Record Review External record reviewed: Outpatient record and Prior outpatient labs Medications Administered Discontinued Medications Generic Name Dose Route Start Last Admin Trade Name Freq PRN Reason Stop Dose Admin Dicyclomine HCl 10 mg 04/18/22 13:17 04/18/22 13:42 Dicyclomine Hcl 10 Mg Capsule PO 04/18/22 13:18 Not Given ONCE ONE Ondansetron HCl 4 mg 04/18/22 13:17 04/18/22 13:42 Ondansetron Odt 4 Mg Tab.Rapdis TRANSLINGU 04/18/22 13:18 Not Given ONCE ONE Discharge Plan Discharge Clinical Impression: Generalized abdominal pain, Irritable bowel syndrome (IBS) Patient Disposition: Home, Self-Care Instructions: Irritable Bowel Syndrome (ED) Additional Instructions: 1. Resume all home medications. 2. 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 Return to the ER for any worsening symptoms. Prescriptions: New dicyclomine 10 mg capsule 10 mg PO BID PRN (Reason: abdominal cramping) Qty: 7 0RF No Action ibuprofen 600 mg tablet 600 mg PO Q6H PRN (Reason: pain) Qty: 30 0RF lorazepam [Ativan] 0.5 mg tablet 0.5 mg PO BID PRN (Reason: anxiety) 4 Days Qty: 8 0RF sucralfate [Carafate] 1 gram tablet 1 g PO BID Qty: 30 0RF ondansetron 4 mg tablet,disintegrating 4 mg PO Q8H PRN (Reason: nausea and vomiting) Qty: 7 0RF erythromycin 5 mg/gram (0.5 %) ointment 0.5 inch ophthalmic (eye) BID 7 Days Qty: 3.5 0RF cephalexin 500 mg capsule 500 mg PO BID 7 Days Qty: 14 0RF alum-mag hydroxide-simeth [Maalox Maximum Strength] 400-400-40 mg/5 mL suspension 10 ml PO TID PRN (Reason: indigestion) Qty: 100 0RF cholecalciferol (vitamin D3) 50 mcg (2,000 unit) tablet 50 mcg PO DAILY metoprolol succinate 25 mg tablet extended release 24 hr 12.5 mg PO BID magnesium oxide 400 mg (241.3 mg magnesium) tablet 400 mg PO DAILY 30 Days Qty: 30 2RF
[2022-04-18 15:02] VITALS: BP 100/59; PULSE 77; RESP 18; TEMP 37; O2SAT 100
== END 2022-04-18 16:08 | disposition home or self-care (01) ==
PROVIDERS: Emergency Provider Student in an Organized Health Care Education/Training Program
DX: K58.9 Irritable bowel syndrome, unspecified (principal); R07.89 Other chest pain; Z87.891 Personal history of nicotine dependence; Z79.899 Other long term (current) drug therapy
CPT/HCPCS: 36415; 80048; 80076; 81001; 83690; 84702; 85027; 99283

== ENCOUNTER → 2022-05-11 13:50 | Outpatient (BNVA) | payer OTHER, SELFPAY | PROVIDERS: Visit Provider Student in an Organized Health Care Education/Training Program | DX: M79.7 Fibromyalgia (principal) | CPT/HCPCS: 99202 ==

== ENCOUNTER 2022-05-16 20:21 | Emergency (ER) | payer OTHER, SELFPAY ==
--- NOTE | ~2022-05-16 | CT_ITS ---
EXAMINATION: CT ABDOMEN AND PELVIS WITH CONTRAST CLINICAL INFORMATION: Epigastric pain COMPARISON: None TECHNIQUE: Multidetector volumetric images were obtained from the superior aspect of the liver through the pubic symphysis following administration 85 mL of Omnipaque 350 intravenous contrast. Sagittal and coronal reformatted images were obtained on the technologist's workstation. Oral contrast: No This CT examination was performed using dose optimization techniques as appropriate, variously including the following: *Automated exposure control *Adjustment of mA and/or kV according to patient size (this includes techniques or standardized protocols for targeted exams where dose is matched to indication/reason for exam; i.e. extremities or head) *Use of iterative reconstruction technique DLP: 620 mGy-cm FINDINGS: LUNG BASES: The visualized lung bases are unremarkable. LIVER, GALLBLADDER, AND BILIARY TREE: The liver is normal in size, shape, and attenuation. No focal hepatic lesion or biliary ductal dilatation is present. Gallbladder appears slightly contracted. PANCREAS: Unremarkable. SPLEEN: Unremarkable. ADRENAL GLANDS: Unremarkable. KIDNEYS AND URETERS: The kidneys are normal in size, shape, and attenuation. No hydronephrosis, hydroureter, or calculi seen. No perinephric stranding. BLADDER: Distended without wall thickening. GASTROINTESTINAL TRACT: No evidence of bowel obstruction or significant wall thickening. The appendix is unremarkable. No free fluid or free air is seen. ABDOMINAL WALL: No significant hernia is appreciated. LYMPH NODES: Normal. VASCULAR: Unremarkable. PELVIC VISCERA: Unremarkable. OSSEOUS STRUCTURES: Unremarkable. CT/CT abdomen pelvis w IV con IMPRESSION: No acute findings identified in the abdomen/pelvis.
[2022-05-16 21:29] VITALS: BP 105/67; PULSE 92; RESP 20; TEMP 36.6; O2SAT 95; BMI 29.4
[2022-05-16 22:09] VITALS: BP 112/67; PULSE 73; RESP 20; O2SAT 100
[2022-05-16 22:26] LABS: MANUAL DIFF FLAG NO
[2022-05-16 22:27] LABS: Basophils Absolute Auto 0.1 X10*3/uL (0.0-0.2); Basophils Percent Auto 0.6 % (0-2); Eosinophils Absolute Auto 0.1 X10*3/uL (0.0-0.4); Eosinophils Percent Auto 1.6 % (0-4); Hematocrit 33.6 % (37.0-47.0); Hemoglobin 10.6 g/dl (12.0-16.0); Imm Gran Abs Auto 0.03 X10*3/uL (0.00-0.03); Imm Gran Pct Auto 0.4 % (0.0-0.4); Lymphocytes Absolute Auto 2.2 X10*3/uL (1.2-4.9); Lymphocytes Percent Auto 27.2 % (20-40); Mean Corpuscular HGB Conc 31.5 g/dl (31.0-35.0); Mean Corpuscular Hemoglobin 24.8 pg (27.0-33.0); Mean Corpuscular Volume 78.7 fL (80.0-98.0); Mean Platelet Volume 10.5 fL (9.4-12.3); Monocytes Absolute Auto 0.6 X10*3/uL (0.1-1.2); Monocytes Percent Auto 7.3 % (2-11); Neutrophils Absolute Auto 5.2 x10*3/uL (2.0-8.3); Neutrophils Percent Auto 62.9 % (45-73); Platelet Count 300 X10*3/uL (160-400); Red Blood Count 4.27 X10*6/uL (4.20-5.50); White Blood Count 8.3 X10*3/uL (4.8-10.8)
[2022-05-16 22:34] LABS: INTERNATIONAL NORM RATIO 1.3 (0.9-1.1); Prothrombin Time 14.5 SEC (10.0-13.1)
--- NOTE | 2022-05-16 22:43 | PC.NURSE ---
this rn assume care of pt @ 2200. pt placed on manager monitoring. blood work obtained and sent down to lab. pt ambulatory. able to produce urine sample at this time
[2022-05-16 22:45] LABS: Anion Gap 12 (12-20); Blood Urea Nitrogen 12 mg/dL (9-16); Calcium 9.2 mg/dL (8.4-10.2); Carbon Dioxide 22 mmol/L (22-29); Chloride 110 mmol/L (96-108); Estimated Glomerular Filt Rate > 60; Glucose Random 97 mg/dL (60-115); Potassium 3.9 mmol/L (3.3-5.1); Sodium 140 mmol/L (135-145)
--- NOTE | 2022-05-16 22:53 | ECG_ITS ---
Test Reason : EXCESS BLEEDING Blood Pressure : / mmHG Vent. Rate : 066 BPM Atrial Rate : 066 BPM P-R Int : 148 ms QRS Dur : 084 ms QT Int : 396 ms P-R-T Axes : 062 030 038 degrees QTc Int : 415 ms Normal sinus rhythm Normal ECG When compared with ECG of 27-MAR-2022 15:09, No significant change was found Referred By: Erinn Escobar Electronically Signed By:SEAN HAGAN MD
--- NOTE | 2022-05-16 23:00 | ED_ITS ---
HPI - Abdominal Pain General Chief Complaint: Abdominal Pain Stated Complaint: abdominal pain, period on blood thinner Time Seen by Provider: 05/16/22 22:05 History of Present Illness HPI narrative: Patient is a 26-year-old female presents today with having abdominal pain. The abdominal pain is been ongoing for about a month. It is epigastric in nature. Not associated with any chest pain or shortness of breath. She has a history of atrial fibrillation. No history of [place]. Positive history of patent foramen ovale. The pain is not related to food. Administration has been normal in timing and duration. Patient does not think she is . No vaginal discharge. The pain is not related to lying down or sitting up. No chest pain no shortness of breath. No diaphoresis. Related Data Home Medications Medication Instructions Recorded Confirmed apixaban 5 mg tablet (Eliquis) 5 mg PO BID 05/11/22 05/11/22 ferrous sulfate 324 mg (65 mg 324 mg PO DAILY 05/11/22 05/11/22 iron) tablet,delayed release fluticasone propionate 230 2 puff inhalation BID 05/11/22 05/11/22 mcg-salmeterol 21 mcg/actuation HFA inhaler (Advair HFA) meclizine 25 mg tablet 25 mg PO TID PRN dizziness 05/11/22 05/11/22 metoprolol succinate 50 mg 50 mg PO DAILY 05/11/22 05/11/22 tablet,extended release 24 hr omeprazole 40 mg capsule,delayed 40 mg PO DAILY 05/11/22 05/11/22 release Previous Rx's Medication Instructions Recorded lorazepam 0.5 mg tablet (Ativan) 0.5 mg PO BID PRN anxiety 4 days 09/08/21 #8 tabs ondansetron 4 mg disintegrating 4 mg PO Q8H PRN nausea and 11/05/21 tablet vomiting #7 tabs sucralfate 1 gram tablet (Carafate) 1 g PO BID #30 tabs 11/05/21 erythromycin 5 mg/gram (0.5 %) eye 0.5 inch ophthalmic (eye) BID 7 11/14/21 ointment days #3.5 grams pantoprazole 40 mg tablet,delayed 40 mg PO DAILY #14 tabs 05/17/22 release (Protonix) Allergies Allergy/AdvReac Type Severity Reaction Status Date / Time cephalexin Allergy Intermediate Chest Pain Verified 05/16/22 21:29 vancomycin Allergy Swelling Verified 05/16/22 21:29 Review of Systems Review of Systems Positive abdominal pain Yes all other systems are reviewed and are negative [facility] Past Medical History Attestation statement: The following information was validated with the patient. Medical History Afib Anxiety Asthma IBS (irritable bowel syndrome) Migraine PFO (patent foramen ovale) Surgical History No pertinent past surgical history Family History Family History Father Stomach cancer Mother DM (diabetes mellitus) Cancer HTN (hypertension) Hypercholesteremia Social History Social History Household Members: Family Alcohol intake: never Patient Tobacco Use Status: Former Tobacco user Advance Directives: No Advance Directives Information Provided: No Current occupational status: unemployed Physical Exam ED Vital Signs: Vital Signs - 24 hr 05/16/22 21:29 05/16/22 22:09 05/17/22 01:13 Temperature 97.9 F 98.6 F Pulse Rate 92 73 76 Respiratory Rate 20 20 14 Blood Pressure 105/67 112/67 99/63 Pulse Oximetry 95 100 100 Oxygen Delivery Method Room Air Room Air Room Air BMI result Body Mass Index 29.4 Appearance: Alert. Oriented X3. No acute distress. Eyes: Pupils equal, round and reactive to light. ENT: Pharynx normal. Neck: Normal inspection. Neck supple. No lymph nodes noted. No crepitus CVS: Normal heart rate and rhythm. Pulses normal. Normal S1 and S2 Respiratory: No respiratory distress. Breath sounds normal. No Wheezing. No rales Abdomen: Soft and nontender. No rigidity. No distention. good BS x4 Skin: Skin warm and dry. Normal skin color. Normal skin turgor. Extremities: No lower extremity edema. Neurovascular intact to all extremities. No Lacerations. No Rash Neuro: Oriented X 3. No motor deficit. No sensory deficit. Moving all extermities. No slurred speech Medical Decision Making Medical Decision Making MDM Narrative: Positive epigastric pain. Patient has a history of atrial fibrillation. Currently on Eliquis. Patient currently having her menstruation. Positive nausea generalized malaise. Patient's CT scan of the abdomen showed no acute evidence of obstruction abscess perforation. Patient's test was negative no related issue. Patient's urine showed no evidence of infection. Positive blood consistent with having her menstruation. Will start patient on a PPI for possible gastritis. Patient's hemoglobin is baseline. Has been having heavy menstruations. Likely related to the Eliquis use. Unlikely to have DVT or PE given patient is on Eliquis. She is in stable condition. Will discharge home. Differential Diagnosis Obstruction, abscess, perforation, biliary issues, pancreatitis, related issues, urinary tract infection Admission/Observation Consideration of admission/observation: Escalation of care including admission/observation considered Lab Data MDM Lab Attestation statement: I reviewed the patient's lab results. 05/16/22 02:15 05/16/22 22:19 Labs: Lab Results 05/16/22 05/16/22 05/16/22 Range/Units 02:15 22:19 22:19 WBC 8.3 (4.8-10.8) X10*3/uL RBC 4.27 (4.20-5.50) X10*6/uL Hgb 10.6 L (12.0-16.0) g/dl Hct 33.6 L (37.0-47.0) % MCV 78.7 L (80.0-98.0) fL MCH 24.8 L (27.0-33.0) pg MCHC 31.5 (31.0-35.0) g/dl RDW 15.0 (11.0-16.0) % Plt Count 300 (160-400) X10*3/uL MPV 10.5 (9.4-12.3) fL Immature Gran % (Auto) 0.4 (0.0-0.4) % Neut % (Auto) 62.9 (45-73) % Lymph % (Auto) 27.2 (20-40) % [place] % (Auto) 7.3 (2-11) % Eos % (Auto) 1.6 (0-4) % Baso % (Auto) 0.6 (0-2) % Lymph # (Auto) 2.2 (1.2-4.9) X10*3/uL [place] # (Auto) 0.6 (0.1-1.2) X10*3/uL Eos # (Auto) 0.1 (0.0-0.4) X10*3/uL Baso # (Auto) 0.1 (0.0-0.2) X10*3/uL Abs Immat Gran (auto) 0.03 (0.00-0.03) X10*3/uL Absolute Neuts (auto) 5.2 (2.0-8.3) x10*3/uL Absolute Nucleated RBC 0.000 (0.0-0.012) X10*3/uL Nucleated RBC % (auto) 0.0 (0.0-0.2) /100WBC PT 14.5 H (10.0-13.1) SEC INR 1.3 H (0.9-1.1) Sodium 140 (135-145) mmol/L Potassium 3.9 (3.3-5.1) mmol/L Chloride 110 H (96-108) mmol/L Carbon Dioxide 22 (22-29) mmol/L Anion Gap 12 (12-20) BUN 12 (9-16) mg/dL Creatinine 0.76 (0.5-1.4) mg/dL Estim Creat Clear Calc 109.0 Estimated GFR > 60 Random Glucose 97 (60-115) mg/dL Calcium 9.2 (8.4-10.2) mg/dL Total Bilirubin 0.4 (0.0-1.0) mg/dL Direct Bilirubin < 0.2 (0.0-0.5) mg/dL AST 13 (5-31) U/L ALT 8 (0-31) U/L Alkaline Phosphatase 64 (39-117) U/L Total Protein 7.4 (6.5-8.0) g/dL Albumin 4.3 (3.5-5.0) g/dL Lipase 16 (8-78) U/L Urine Color Urine Appearance Urine pH (5.0-9.0) Ur Specific [place] (1.005-1.025) Urine Protein (Neg-Trace) mg/dL Urine Glucose (UA) (Negative) mg/dL Urine Ketones (Negative) mg/dL Urine Blood (Negative) Urine Nitrite (Negative) Ur Leukocyte Esterase (Negative) Urine RBC (0-2) /HPF Urine WBC (0-5) /HPF Ur Squamous Epith Cells (0-2) /HPF Urine Bacteria (None Seen) Hyaline Casts (0-2) /LPF Urine Test (NEGATIVE) 05/16/22 05/16/22 Range/Units 23:10 23:10 WBC (4.8-10.8) X10*3/uL RBC (4.20-5.50) X10*6/uL Hgb (12.0-16.0) g/dl Hct (37.0-47.0) % MCV (80.0-98.0) fL MCH (27.0-33.0) pg MCHC (31.0-35.0) g/dl RDW (11.0-16.0) % Plt Count (160-400) X10*3/uL MPV (9.4-12.3) fL Immature Gran % (Auto) (0.0-0.4) % Neut % (Auto) (45-73) % Lymph % (Auto) (20-40) % [place] % (Auto) (2-11) % Eos % (Auto) (0-4) % Baso % (Auto) (0-2) % Lymph # (Auto) (1.2-4.9) X10*3/uL [place] # (Auto) (0.1-1.2) X10*3/uL Eos # (Auto) (0.0-0.4) X10*3/uL Baso # (Auto) (0.0-0.2) X10*3/uL Abs Immat Gran (auto) (0.00-0.03) X10*3/uL Absolute Neuts (auto) (2.0-8.3) x10*3/uL Absolute Nucleated RBC (0.0-0.012) X10*3/uL Nucleated RBC % (auto) (0.0-0.2) /100WBC PT (10.0-13.1) SEC INR (0.9-1.1) Sodium (135-145) mmol/L Potassium (3.3-5.1) mmol/L Chloride (96-108) mmol/L Carbon Dioxide (22-29) mmol/L Anion Gap (12-20) BUN (9-16) mg/dL Creatinine (0.5-1.4) mg/dL Estim Creat Clear Calc Estimated GFR Random Glucose (60-115) mg/dL Calcium (8.4-10.2) mg/dL Total Bilirubin (0.0-1.0) mg/dL Direct Bilirubin (0.0-0.5) mg/dL AST (5-31) U/L ALT (0-31) U/L Alkaline Phosphatase (39-117) U/L Total Protein (6.5-8.0) g/dL Albumin (3.5-5.0) g/dL Lipase (8-78) U/L Urine Color Yellow Urine Appearance Clear Urine pH 6.0 (5.0-9.0) Ur Specific [place] <= 1.005 (1.005-1.025) Urine Protein Negative (Neg-Trace) mg/dL Urine Glucose (UA) Negative (Negative) mg/dL Urine Ketones Negative (Negative) mg/dL Urine Blood Large (3+) H (Negative) Urine Nitrite Negative (Negative) Ur Leukocyte Esterase Negative (Negative) Urine RBC >20 H (0-2) /HPF Urine WBC 0-5 (0-5) /HPF Ur Squamous Epith Cells 0-2 (0-2) /HPF Urine Bacteria None Seen (None Seen) Hyaline Casts 0-2 (0-2) /LPF Urine Test NEGATIVE (NEGATIVE) External Record Review External record reviewed: Inpatient record Chronic Conditions Atrial fibrillation Medications Administered Discontinued Medications Generic Name Dose Route Start Last Admin Trade Name Freq PRN Reason Stop Dose Admin Iohexol 85 ml 05/17/22 00:15 05/17/22 00:18 Iohexol 350 Mg/Ml 100 Ml Infus..Btl IV 05/17/22 00:16 85 ml ONCE ONE Administration Discharge Plan Discharge Clinical Impression: Gastritis Patient Disposition: Home, Self-Care Instructions: Gastritis (ED) Prescriptions: New pantoprazole [Protonix] 40 mg tablet,delayed release (DR/EC) 40 mg PO DAILY Qty: 14 0RF No Action lorazepam [Ativan] 0.5 mg tablet 0.5 mg PO BID PRN (Reason: anxiety) 4 Days Qty: 8 0RF sucralfate [Carafate] 1 gram tablet 1 g PO BID Qty: 30 0RF ondansetron 4 mg tablet,disintegrating 4 mg PO Q8H PRN (Reason: nausea and vomiting) Qty: 7 0RF erythromycin 5 mg/gram (0.5 %) ointment 0.5 inch ophthalmic (eye) BID 7 Days Qty: 3.5 0RF metoprolol succinate 50 mg tablet extended release 24 hr 50 mg PO DAILY omeprazole 40 mg capsule,delayed release(DR/EC) 40 mg PO DAILY meclizine 25 mg tablet 25 mg PO TID PRN (Reason: dizziness) ferrous sulfate 324 mg (65 mg iron) tablet,delayed release (DR/EC) 324 mg PO DAILY Eliquis 5 mg tablet 5 mg PO BID Advair HFA 230-21 mcg/actuation HFA aerosol inhaler 2 puff inhalation BID Referrals: Physician,Unknown J [Primary Care Provider] - 05/18/22
[2022-05-16 23:16] LABS: Appearance Urine Clear; Color Urine Yellow; Glucose Urine UA Negative (Negative); Leukocyte Esterase Urine Negative (Negative); Nitrite Urine Negative (Negative); Specific Gravity - Urine <= 1.005 (1.005-1.025); UMIC TRIGGER UACC YES; Urine Blood Large (3+) (Negative); Urine Ketones Negative (Negative); Urine Protein Negative (Neg-Trace)
[2022-05-16 23:18] LABS: UPreg QC Valid YES; Urine Pregnancy NEGATIVE (NEGATIVE)
[2022-05-16 23:19] LABS: Alanine Aminotransferase 8 U/L (0-31); Albumin Level 4.3 g/dL (3.5-5.0); Alkaline Phosphatase 64 U/L (39-117); Aspartate Amino Transferase 13 U/L (5-31); Bilirubin Direct < 0.2 mg/dL (0.0-0.5); Bilirubin Total 0.4 mg/dL (0.0-1.0); Lipase 16 U/L (8-78); Total Protein 7.4 g/dL (6.5-8.0)
[2022-05-16 23:22] LABS: Bacteria Urine None Seen (None Seen); Hyaline Casts Urine 0-2 /LPF (0-2); RBC Urine >20 /HPF (0-2); Squamous Epithelial Cell Urine 0-2 /HPF (0-2); WBC Urine 0-5 /HPF (0-5)
[2022-05-17] MEDS: iohexoL 350 MG/ML 100 ML INFUS..BTL 85 ML IV (00:18)
--- NOTE | 2022-05-17 00:24 | PC.NURSE ---
this rn attempted twice to place iv. 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 brain wave technician informed this rn iv infiltrated during final flush of NS
--- NOTE | 2022-05-17 00:55 | PC.NURSE ---
per charge hand this rn removed pt iv from R AC. . pt assisted to bedside commode as pt expressed to this rn that she felt lightheaded while trying to walk. this rn educated pt on importance of utilizing callbell.
[2022-05-17 01:13] VITALS: BP 99/63; PULSE 76; RESP 14; TEMP 37; O2SAT 100
--- NOTE | 2022-05-17 01:17 | PC.NURSE ---
pt rang call melo. pt back in bed. pt reports that while using bedside commode large clot approx 3inches long, passed. dr babcock made aware. no new orders at this time
[2022-05-17 02:43] VITALS: BP 99/72; PULSE 107; RESP 16; TEMP 36.7; O2SAT 98
--- NOTE | 2022-05-17 02:49 | PC.NURSE ---
pt ambulatory with cane at discharge. skin pwd. pt provided with discharge packet. pt verbalized understanding with discharge plan
== END 2022-05-17 02:50 | disposition home or self-care (01) ==
PROVIDERS: Emergency Provider Emergency Medicine Emergency Medical Services
DX: K29.70 Gastritis, unspecified, without bleeding (principal); I48.91 Unspecified atrial fibrillation; Z87.891 Personal history of nicotine dependence; Z79.01 Long term (current) use of anticoagulants; Z79.899 Other long term (current) drug therapy
CPT/HCPCS: 36415; 74177; 80048; 80076; 81001; 81025; 83690; 85025; 85610; 93005; 99284; Q9967

== ENCOUNTER 2022-06-24 13:13 | Emergency (ER) | payer OTHER, SELFPAY ==
--- NOTE | 2022-06-24 | ECG_ITS ---
Test Reason : CP Blood Pressure : / mmHG Vent. Rate : 081 BPM Atrial Rate : 081 BPM P-R Int : 140 ms QRS Dur : 080 ms QT Int : 362 ms P-R-T Axes : 070 048 057 degrees QTc Int : 420 ms Normal sinus rhythm Normal ECG When compared with ECG of 16-MAY-2022 23:06, No significant change was found Referred By: Generic ED Physician Electronically Signed By:SEAN HAGAN MD
--- NOTE | ~2022-06-24 | US_ITS ---
EXAMINATION: US ABDOMEN COMPLETE CLINICAL INFORMATION: Right upper quadrant pain. COMPARISON: CT scan from 05/17/2022 TECHNIQUE: Real-time imaging of the abdominal viscera. FINDINGS: PANCREAS: The visualized portion of the pancreas head and body are normal, portion of the pancreatic body and tail, not visualized are obscured by bowel gas. ABDOMINAL AORTA: The proximal, mid, and distal segments are normal in caliber. INFERIOR VENA CAVA: Visualized portions are normal. LIVER: Normal. The liver is normal in size. The liver contour is normal. Parenchymal echogenicity is normal. No focal hepatic lesion. There is no intrahepatic biliary duct dilatation seen. GALLBLADDER: Normal. The gallbladder is physiologically distended without evidence of stones, sludge, polyps, wall thickening or pericholecystic fluid. COMMON BILE DUCT: Normal in caliber measuring 0.3 cm in diameter. RIGHT KIDNEY: There is mild hydronephrosis. No renal calculi or focal parenchymal lesions. The kidney measures 10 cm in maximum dimension. LEFT KIDNEY: Normal. No hydronephrosis. No renal calculi or focal parenchymal lesions. The kidney measures 9.9 cm in maximum dimension. SPLEEN: Normal. The spleen measures 11 cm in maximum dimension. FREE FLUID: None. US/US abdomen complete IMPRESSION: * No ultrasound evidence of gallbladder disease or gallstones. * Mild right renal hydronephrosis uncertain etiology.
[2022-06-24 13:35] VITALS: BP 112/67; PULSE 90; RESP 18; TEMP 37.4; O2SAT 99; BMI 30.9
[2022-06-24 13:39] LABS: MANUAL DIFF FLAG NO
[2022-06-24 13:40] LABS: Basophils Percent Auto 0.5 % (0-2); Eosinophils Absolute Auto 0.1 X10*3/uL (0.0-0.4); Eosinophils Percent Auto 1.8 % (0-4); Hematocrit 39.2 % (37.0-47.0); Hemoglobin 12.4 g/dl (12.0-16.0); Imm Gran Abs Auto 0.01 X10*3/uL (0.00-0.03); Imm Gran Pct Auto 0.2 % (0.0-0.4); Lymphocytes Absolute Auto 1.7 X10*3/uL (1.2-4.9); Lymphocytes Percent Auto 30.2 % (20-40); Mean Corpuscular HGB Conc 31.6 g/dl (31.0-35.0); Mean Corpuscular Hemoglobin 25.4 pg (27.0-33.0); Mean Corpuscular Volume 80.3 fL (80.0-98.0); Mean Platelet Volume 9.4 fL (9.4-12.3); Monocytes Absolute Auto 0.3 X10*3/uL (0.1-1.2); Monocytes Percent Auto 5.7 % (2-11); Neutrophils Absolute Auto 3.5 x10*3/uL (2.0-8.3); Neutrophils Percent Auto 61.6 % (45-73); Platelet Count 223 X10*3/uL (160-400); Red Blood Count 4.88 X10*6/uL (4.20-5.50); Red Cell Distribution Width 15.9 % (11.0-16.0); White Blood Count 5.6 X10*3/uL (4.8-10.8)
--- NOTE | 2022-06-24 13:54 | ED.CHESTPAIN ---
HPI - Chest Pain General Chief Complaint: Chest Pain <CARLOS Del Toro - Last Filed: 06/25/22 12:03> Stated Complaint: Chest pain/Abd pain <CARLOS Del Toro - Last Filed: 06/25/22 12:03> Time Seen by Provider: 06/24/22 13:44 <CARLOS Del Toro - Last Filed: 06/25/22 12:03> Source: patient <Jair Garcia MD - Last Filed: 06/24/22 16:18> Mode of arrival: ambulatory <Jair Garcia MD - Last Filed: 06/24/22 16:18> Limitations: no limitations <Jair Garcia MD - Last Filed: 06/24/22 16:18> History of Present Illness HPI narrative: 26-year-old female came in for evaluation of chest pain and upper abdominal pain for about a week. Patient feels deep chest pain in a mid chest/epigastric area associated with palpitation, but declined any shortness of breath. No exacerbating factor or relieving factor, no associated symptoms, pain is intermittent. Patient stated that she has been stressed out in life she is a mother of 3-year-old child also recently lost her uncle at young age from ruptured aortic aneurysm which make her concern. <Jair Garcia MD - Last Filed: 06/24/22 16:18> Related Data Home Medications: Home Medications Medication Instructions Recorded Confirmed apixaban 5 mg tablet (Eliquis) 5 mg PO BID 05/11/22 05/11/22 ferrous sulfate 324 mg (65 mg 324 mg PO DAILY 05/11/22 05/11/22 iron) tablet,delayed release fluticasone propionate 230 2 puff inhalation BID 05/11/22 05/11/22 mcg-salmeterol 21 mcg/actuation HFA inhaler (Advair HFA) meclizine 25 mg tablet 25 mg PO TID PRN dizziness 05/11/22 05/11/22 metoprolol succinate 50 mg 50 mg PO DAILY 05/11/22 05/11/22 tablet,extended release 24 hr omeprazole 40 mg capsule,delayed 40 mg PO DAILY 05/11/22 05/11/22 release Previous Rx's Medication Instructions Recorded lorazepam 0.5 mg tablet (Ativan) 0.5 mg PO BID PRN anxiety 4 days 09/08/21 #8 tabs ondansetron 4 mg disintegrating 4 mg PO Q8H PRN nausea and 11/05/21 tablet vomiting #7 tabs sucralfate 1 gram tablet (Carafate) 1 g PO BID #30 tabs 11/05/21 erythromycin 5 mg/gram (0.5 %) eye 0.5 inch ophthalmic (eye) BID 7 11/14/21 ointment days #3.5 grams pantoprazole 40 mg tablet,delayed 40 mg PO DAILY #14 tabs 05/17/22 release (Protonix) <CARLOS Del Toro - Last Filed: 06/25/22 12:03> Allergies/Adverse Reactions: Allergies Allergy/AdvReac Type Severity Reaction Status Date / Time cephalexin Allergy Intermediate Chest Pain Verified 06/24/22 13:35 vancomycin Allergy Swelling Verified 06/24/22 13:35 <CARLOS Del Toro - Last Filed: 06/25/22 12:03> Review of Systems Review of Systems: All other systems are reviewed and are negative Constitutional: Reports as per HPI and Reports no additional constitutional complaints Eyes: Reports as per HPI and Reports no additional eye complaints Reports system reviewed and no additional complaints, except as documented Cardiovascular: Reports as per HPI and Reports no additional cardiovascular complaints Respiratory: Reports as per HPI and Reports no additional respiratory complaints Gastrointestinal: Reports as per HPI and Reports no additional gastrointestinal complaints Genitourinary: Reports no additional female genitourinary complaints Musculoskeletal: Reports no additional musculoskeletal complaints Skin/Breast: Reports system reviewed and no additional complaints, except as docu Psychiatric: Reports no additional psychiatric complaints Endocrine: Reports no additional endocrine complaints Hematologic/Lymphatic: Reports no additional hematologic/lymphatic complaints Allergic/Immunologic: Reports no additional allergic/immunologic complaints Reports system reviewed and no additional complaints, except as documented and Reports Abnormal speech present <Jair Garcia MD - Last Filed: 06/24/22 16:18> [facility] Past Medical History Medical History: Medical History Afib Anxiety Asthma IBS (irritable bowel syndrome) Migraine PFO (patent foramen ovale) <CARLOS Del Toro - Last Filed: 06/25/22 12:03> Surgical History: Surgical History No pertinent past surgical history <CARLOS Del Toro - Last Filed: 06/25/22 12:03> Family History Family History: Family History Father Stomach cancer Mother DM (diabetes mellitus) Cancer HTN (hypertension) Hypercholesteremia <CARLOS Del Toro - Last Filed: 06/25/22 12:03> Social History Social History: Social History Household Members: Family Alcohol intake: never Patient Tobacco Use Status: Former Tobacco user Smoked in Last 30 Days: No Use of substances other than those prescribed or required for medical reasons: No Advance Directives: No Advance Directives Information Provided: No Current occupational status: unemployed <CARLOS Del Toro - Last Filed: 06/25/22 12:03> Physical Exam Vital Signs: Vital Signs: Last Vital Signs Temp 98.5 F 06/24/22 16:21 Pulse 90 06/24/22 16:21 Resp 18 06/24/22 16:21 BP 112/70 06/24/22 16:21 Pulse Ox 99 06/24/22 16:21 O2 Del Method Room Air 06/24/22 16:21 BMI result Body Mass Index 30.9 <CARLOS Del Toro - Last Filed: 06/25/22 12:03> Vital Signs: Last Vital Signs Temp 98.5 F 06/24/22 16:21 Pulse 90 06/24/22 16:21 Resp 18 06/24/22 16:21 BP 112/70 06/24/22 16:21 Pulse Ox 99 06/24/22 16:21 O2 Del Method Room Air 06/24/22 16:21 BMI result Body Mass Index 30.9 Vital signs have been reviewed as appeared to be correct. Blood pressure normal. Heart rate normal. Respiration rate normal. Temperature normal. Oxygen saturation normal. <Jair Garcia MD - Last Filed: 06/24/22 16:18> Appearance: Alert. Oriented X3. No acute distress. Head: Normal external exam. Normocephalic. Atraumatic. No Ashley signs noted. No raccoon eyes noted Eyes: PERRLA. EOMI. Conjunctiva and sclera normal. Eyelids normal. ENT: TM's Normal. Pharynx normal. Uvula midline. Moist mucous membranes. No trismus noted. No drooling noted. No muffled voice noted. Neck: Normal inspection. Neck supple. FROM. No adenopathy. Thyroid Normal. No meningeal signs. No neck mass noted. CVS: Normal heart rate and rhythm. Heart sound normal. No murmurs noted. Pulses normal throughout. Respiratory: No respiratory distress. Painless inspiration. Breath sounds normal. No wheezes/rales/rhonchi noted. Chest nontender. No accessory muscle usage noted or decreased air movement noted. Abdomen: Soft and nontender. Bowel sounds normal in all 4 quadrants. No distention noted. No organomegaly noted. No visible injury noted. Back: No CVA tenderness. Full range of motion noted. Skin: Skin warm and dry. Normal skin color. Normal skin turgor. No rashes/lesions/lacerations noted. Extremities: No lower extremity edema. Extremities exhibit normal range of motion. Extremities nontender. Neuro: Oriented X 3. Cranial nerve exam: II-XII are grossly intact No motor deficit. No sensory deficit. Reflexes normal. <Jair Garcia MD - Last Filed: 06/24/22 16:18> Course Course Course Narrative: RME: 26 yold female presents tot he ED or chest pain and abdominal pain. no SOB. EKG and labs ordered. <CARLOS Del Toro - Last Filed: 06/25/22 12:03> Reevaluation(s) Reevaluation #1: 26-year-old female came in with chest pain, upper abdominal pain has negative ultrasound for gallbladder disease, unremarkable cardiac workup in the ED today. Patient was concern of aneurysm disease because her uncle young from it, patient had a recent CT of the abdomen and chest showing no aneurysm, today's ultrasound is no concern of gallbladder disease or aneurysm. Patient appears to be under stress and was reassured. <Jair Garcia MD - Last Filed: 06/24/22 16:18> Time: 16:14 <Jair Garcia MD - Last Filed: 06/24/22 16:18> Medical Decision Making Differential Diagnosis Differential Diagnoses: The differential diagnosis associated with the presentation includes (ACS, gallbladder disease, gastritis, anxiety.) <Jair Garcia MD - Last Filed: 06/24/22 16:18> Lab Data MDM Lab Attestation statement: I reviewed the patient's lab results. <Jair Garcia MD - Last Filed: 06/24/22 16:18> Result Diagrams: 06/24/22 13:33 06/24/22 13:33 <CARLOS Del Toro - Last Filed: 06/25/22 12:03> Labs: Lab Results 06/24/22 06/24/22 06/24/22 Range/Units 13:33 13:33 13:33 WBC 5.6 (4.8-10.8) X10*3/uL RBC 4.88 (4.20-5.50) X10*6/uL Hgb 12.4 (12.0-16.0) g/dl Hct 39.2 (37.0-47.0) % MCV 80.3 (80.0-98.0) fL MCH 25.4 L (27.0-33.0) pg MCHC 31.6 (31.0-35.0) g/dl RDW 15.9 (11.0-16.0) % Plt Count 223 D (160-400) X10*3/uL MPV 9.4 (9.4-12.3) fL Immature Gran % (Auto) 0.2 (0.0-0.4) % Neut % (Auto) 61.6 (45-73) % Lymph % (Auto) 30.2 (20-40) % [place] % (Auto) 5.7 (2-11) % Eos % (Auto) 1.8 (0-4) % Baso % (Auto) 0.5 (0-2) % Lymph # (Auto) 1.7 (1.2-4.9) X10*3/uL [place] # (Auto) 0.3 (0.1-1.2) X10*3/uL Eos # (Auto) 0.1 (0.0-0.4) X10*3/uL Baso # (Auto) 0.0 (0.0-0.2) X10*3/uL Abs Immat Gran (auto) 0.01 (0.00-0.03) X10*3/uL Absolute Neuts (auto) 3.5 (2.0-8.3) x10*3/uL Absolute Nucleated RBC 0.000 (0.0-0.012) X10*3/uL Nucleated RBC % (auto) 0.0 (0.0-0.2) /100WBC Sodium 141 (135-145) mmol/L Potassium 4.6 (3.3-5.1) mmol/L Chloride 107 (96-108) mmol/L Carbon Dioxide 29 (22-29) mmol/L Anion Gap 10 L (12-20) BUN 13 (9-16) mg/dL Creatinine 0.77 (0.5-1.4) mg/dL Estim Creat Clear Calc 110.4 Estimated GFR > 60 Random Glucose 87 (60-115) mg/dL Calcium 9.5 (8.4-10.2) mg/dL Total Bilirubin 0.5 (0.0-1.0) mg/dL AST 14 (5-31) U/L ALT 13 (0-31) U/L Alkaline Phosphatase 70 (39-117) U/L Troponin I High Sens < 2.7 (<3.5-17.0) ng/L Total Protein 7.2 (6.5-8.0) g/dL Albumin 4.3 (3.5-5.0) g/dL Urine Color Urine Appearance Urine pH (5.0-9.0) Ur Specific [place] (1.005-1.025) Urine Protein (Neg-Trace) mg/dL Urine Glucose (UA) (Negative) mg/dL Urine Ketones (Negative) mg/dL Urine Blood (Negative) Urine Nitrite (Negative) Ur Leukocyte Esterase (Negative) Urine Test (NEGATIVE) COVID-19 (MARILYNN) (Negative) COVID-19 Clin Com 06/24/22 06/24/22 06/24/22 Range/Units 13:33 14:56 14:56 WBC (4.8-10.8) X10*3/uL RBC (4.20-5.50) X10*6/uL Hgb (12.0-16.0) g/dl Hct (37.0-47.0) % MCV (80.0-98.0) fL MCH (27.0-33.0) pg MCHC (31.0-35.0) g/dl RDW (11.0-16.0) % Plt Count (160-400) X10*3/uL MPV (9.4-12.3) fL Immature Gran % (Auto) (0.0-0.4) % Neut % (Auto) (45-73) % Lymph % (Auto) (20-40) % [place] % (Auto) (2-11) % Eos % (Auto) (0-4) % Baso % (Auto) (0-2) % Lymph # (Auto) (1.2-4.9) X10*3/uL [place] # (Auto) (0.1-1.2) X10*3/uL Eos # (Auto) (0.0-0.4) X10*3/uL Baso # (Auto) (0.0-0.2) X10*3/uL Abs Immat Gran (auto) (0.00-0.03) X10*3/uL Absolute Neuts (auto) (2.0-8.3) x10*3/uL Absolute Nucleated RBC (0.0-0.012) X10*3/uL Nucleated RBC % (auto) (0.0-0.2) /100WBC Sodium (135-145) mmol/L Potassium (3.3-5.1) mmol/L Chloride (96-108) mmol/L Carbon Dioxide (22-29) mmol/L Anion Gap (12-20) BUN (9-16) mg/dL Creatinine (0.5-1.4) mg/dL Estim Creat Clear Calc Estimated GFR Random Glucose (60-115) mg/dL Calcium (8.4-10.2) mg/dL Total Bilirubin (0.0-1.0) mg/dL AST (5-31) U/L ALT (0-31) U/L Alkaline Phosphatase (39-117) U/L Troponin I High Sens (<3.5-17.0) ng/L Total Protein (6.5-8.0) g/dL Albumin (3.5-5.0) g/dL Urine Color Yellow Urine Appearance Clear Urine pH 7.0 (5.0-9.0) Ur Specific [place] 1.010 (1.005-1.025) Urine Protein Negative (Neg-Trace) mg/dL Urine Glucose (UA) Negative (Negative) mg/dL Urine Ketones Negative (Negative) mg/dL Urine Blood Negative (Negative) Urine Nitrite Negative (Negative) Ur Leukocyte Esterase Negative (Negative) Urine Test NEGATIVE (NEGATIVE) COVID-19 (MARILYNN) Negative (Negative) COVID-19 Clin Com See Note <CARLOS Del Toro - Last Filed: 06/25/22 12:03> Lab Results 06/24/22 06/24/22 06/24/22 Range/Units 13:33 13:33 13:33 WBC 5.6 (4.8-10.8) X10*3/uL RBC 4.88 (4.20-5.50) X10*6/uL Hgb 12.4 (12.0-16.0) g/dl Hct 39.2 (37.0-47.0) % MCV 80.3 (80.0-98.0) fL MCH 25.4 L (27.0-33.0) pg MCHC 31.6 (31.0-35.0) g/dl RDW 15.9 (11.0-16.0) % Plt Count 223 D (160-400) X10*3/uL MPV 9.4 (9.4-12.3) fL Immature Gran % (Auto) 0.2 (0.0-0.4) % Neut % (Auto) 61.6 (45-73) % Lymph % (Auto) 30.2 (20-40) % [place] % (Auto) 5.7 (2-11) % Eos % (Auto) 1.8 (0-4) % Baso % (Auto) 0.5 (0-2) % Lymph # (Auto) 1.7 (1.2-4.9) X10*3/uL [place] # (Auto) 0.3 (0.1-1.2) X10*3/uL Eos # (Auto) 0.1 (0.0-0.4) X10*3/uL Baso # (Auto) 0.0 (0.0-0.2) X10*3/uL Abs Immat Gran (auto) 0.01 (0.00-0.03) X10*3/uL Absolute Neuts (auto) 3.5 (2.0-8.3) x10*3/uL Absolute Nucleated RBC 0.000 (0.0-0.012) X10*3/uL Nucleated RBC % (auto) 0.0 (0.0-0.2) /100WBC Sodium 141 (135-145) mmol/L Potassium 4.6 (3.3-5.1) mmol/L Chloride 107 (96-108) mmol/L Carbon Dioxide 29 (22-29) mmol/L Anion Gap 10 L (12-20) BUN 13 (9-16) mg/dL Creatinine 0.77 (0.5-1.4) mg/dL Estim Creat Clear Calc 110.4 Estimated GFR > 60 Random Glucose 87 (60-115) mg/dL Calcium 9.5 (8.4-10.2) mg/dL Total Bilirubin 0.5 (0.0-1.0) mg/dL AST 14 (5-31) U/L ALT 13 (0-31) U/L Alkaline Phosphatase 70 (39-117) U/L Troponin I High Sens < 2.7 (<3.5-17.0) ng/L Total Protein 7.2 (6.5-8.0) g/dL Albumin 4.3 (3.5-5.0) g/dL Urine Color Urine Appearance Urine pH (5.0-9.0) Ur Specific [place] (1.005-1.025) Urine Protein (Neg-Trace) mg/dL Urine Glucose (UA) (Negative) mg/dL Urine Ketones (Negative) mg/dL Urine Blood (Negative) Urine Nitrite (Negative) Ur Leukocyte Esterase (Negative) Urine Test (NEGATIVE) COVID-19 ([facility]ILYNN) (Negative) COVID-19 Clin Com 06/24/22 06/24/22 06/24/22 Range/Units 13:33 14:56 14:56 WBC (4.8-10.8) X10*3/uL RBC (4.20-5.50) X10*6/uL Hgb (12.0-16.0) g/dl Hct (37.0-47.0) % MCV (80.0-98.0) fL MCH (27.0-33.0) pg MCHC (31.0-35.0) g/dl RDW (11.0-16.0) % Plt Count (160-400) X10*3/uL MPV (9.4-12.3) fL Immature Gran % (Auto) (0.0-0.4) % Neut % (Auto) (45-73) % Lymph % (Auto) (20-40) % [place] % (Auto) (2-11) % Eos % (Auto) (0-4) % Baso % (Auto) (0-2) % Lymph # (Auto) (1.2-4.9) X10*3/uL [place] # (Auto) (0.1-1.2) X10*3/uL Eos # (Auto) (0.0-0.4) X10*3/uL Baso # (Auto) (0.0-0.2) X10*3/uL Abs Immat Gran (auto) (0.00-0.03) X10*3/uL Absolute Neuts (auto) (2.0-8.3) x10*3/uL Absolute Nucleated RBC (0.0-0.012) X10*3/uL Nucleated RBC % (auto) (0.0-0.2) /100WBC Sodium (135-145) mmol/L Potassium (3.3-5.1) mmol/L Chloride (96-108) mmol/L Carbon Dioxide (22-29) mmol/L Anion Gap (12-20) BUN (9-16) mg/dL Creatinine (0.5-1.4) mg/dL Estim Creat Clear Calc Estimated GFR Random Glucose (60-115) mg/dL Calcium (8.4-10.2) mg/dL Total Bilirubin (0.0-1.0) mg/dL AST (5-31) U/L ALT (0-31) U/L Alkaline Phosphatase (39-117) U/L Troponin I High Sens (<3.5-17.0) ng/L Total Protein (6.5-8.0) g/dL Albumin (3.5-5.0) g/dL Urine Color Yellow Urine Appearance Clear Urine pH 7.0 (5.0-9.0) Ur Specific [place] 1.010 (1.005-1.025) Urine Protein Negative (Neg-Trace) mg/dL Urine Glucose (UA) Negative (Negative) mg/dL Urine Ketones Negative (Negative) mg/dL Urine Blood Negative (Negative) Urine Nitrite Negative (Negative) Ur Leukocyte Esterase Negative (Negative) Urine Test NEGATIVE (NEGATIVE) COVID-19 ([facility]ILYNN) Negative (Negative) COVID-19 Clin Com See Note <Jair Garcia MD - Last Filed: 06/24/22 16:18> Independent Interpretation I performed an independent interpretation of an: EKG (Normal sinus rhythm at 81 beats per minute, normal intervals, no ST-T changes.) and Ultrasound (Abdomen pelvis: No acute pathology.) <Jair Garcia MD - Last Filed: 06/24/22 16:18> Radiology Impression Discussion of test interpretation with radiology: I have reviewed the radiologist's reading. <Jair Garcia MD - Last Filed: 06/24/22 16:18> Discharge Plan Discharge Clinical Impression: Chest pain <ACRLOS Del Toro - Last Filed: 06/25/22 12:03> Patient Disposition: Home, Self-Care <CARLOS Del Toro - Last Filed: 06/25/22 12:03> Instructions: Chest Pain (ED) <CARLOS Del Toro - Last Filed: 06/25/22 12:03> Prescriptions: No Action lorazepam [Ativan] 0.5 mg tablet 0.5 mg PO BID PRN (Reason: anxiety) 4 Days Qty: 8 0RF sucralfate [Carafate] 1 gram tablet 1 g PO BID Qty: 30 0RF ondansetron 4 mg tablet,disintegrating 4 mg PO Q8H PRN (Reason: nausea and vomiting) Qty: 7 0RF erythromycin 5 mg/gram (0.5 %) ointment 0.5 inch ophthalmic (eye) BID 7 Days Qty: 3.5 0RF pantoprazole [Protonix] 40 mg tablet,delayed release (DR/EC) 40 mg PO DAILY Qty: 14 0RF metoprolol succinate 50 mg tablet extended release 24 hr 50 mg PO DAILY omeprazole 40 mg capsule,delayed release(DR/EC) 40 mg PO DAILY meclizine 25 mg tablet 25 mg PO TID PRN (Reason: dizziness) ferrous sulfate 324 mg (65 mg iron) tablet,delayed release (DR/EC) 324 mg PO DAILY Eliquis 5 mg tablet 5 mg PO BID Advair HFA 230-21 mcg/actuation HFA aerosol inhaler 2 puff inhalation BID <CARLOS Del Toro - Last Filed: 06/25/22 12:03> Referrals: Physician,Unknown J [Primary Care Provider] - <CARLOS Del Toro - Last Filed: 06/25/22 12:03> Interventions: ED Discharge Assessment Last Done: 06/24/22 16:20 <CARLOS Del Toro - Last Filed: 06/25/22 12:03> Discharge Date/Time: 06/24/22 16:26 <CARLOS Del Toro - Last Filed: 06/25/22 12:03>
[2022-06-24 13:58] LABS: Alanine Aminotransferase 13 U/L (0-31); Albumin Level 4.3 g/dL (3.5-5.0); Alkaline Phosphatase 70 U/L (39-117); Anion Gap 10 (12-20); Aspartate Amino Transferase 14 U/L (5-31); Bilirubin Total 0.5 mg/dL (0.0-1.0); Blood Urea Nitrogen 13 mg/dL (9-16); Calcium 9.5 mg/dL (8.4-10.2); Chloride 107 mmol/L (96-108); Creatinine Clr Calc Pharmacy 110.4; Estimated Glomerular Filt Rate > 60; Glucose Random 87 mg/dL (60-115); Potassium 4.6 mmol/L (3.3-5.1); Sodium 141 mmol/L (135-145); Total Protein 7.2 g/dL (6.5-8.0)
[2022-06-24 14:04] LABS: COVID-19 Test Negative (Negative); Carbon Dioxide 29 mmol/L (22-29); IDNOW Serial# 08D9AD1C
[2022-06-24 14:11] LABS: Troponin-I High Sensitivity < 2.7 ng/L (<3.5-17.0)
[2022-06-24 14:53] VITALS: BP 106/68; PULSE 75; RESP 16; TEMP 36.6; O2SAT 100
[2022-06-24 15:07] LABS: Appearance Urine Clear; Color Urine Yellow; Glucose Urine UA Negative (Negative); Leukocyte Esterase Urine Negative (Negative); Nitrite Urine Negative (Negative); Urine Blood Negative (Negative); Urine Ketones Negative (Negative); Urine Protein Negative (Neg-Trace)
[2022-06-24 15:10] LABS: UPreg QC Valid YES; Urine Pregnancy NEGATIVE (NEGATIVE)
[2022-06-24 16:21] VITALS: BP 112/70; PULSE 90; RESP 18; TEMP 36.9; O2SAT 99
== END 2022-06-24 16:26 | disposition home or self-care (01) ==
PROVIDERS: Physician Assistant; Emergency Provider Emergency Medicine
DX: R07.89 Other chest pain (principal); R10.13 Epigastric pain; R00.2 Palpitations; Z87.891 Personal history of nicotine dependence; Z20.822 Contact with and (suspected) exposure to COVID-19; Z20.828 Contact with and (suspected) exposure to other viral communicable diseases; Z79.899 Other long term (current) drug therapy
CPT/HCPCS: 76700; 80053; 81003; 81025; 84484; 85025; 87635; 93005; 99284; 99285

== ENCOUNTER 2023-02-19 13:21 | Emergency (ER) | payer OTHER, SELFPAY ==
--- NOTE | ~2023-02-19 | XR_ITS ---
EXAMINATION: XR CHEST 2 VIEW CLINICAL INFORMATION: Chest pain COMPARISON: 03/27/2022 TECHNIQUE: PA and lateral views of the chest obtained. FINDINGS: The lungs are clear. There are no pleural effusions. The cardiomediastinal silhouette is normal. No rib fracture or pneumothorax is evident. XR/XR chest 2V IMPRESSION: No acute cardiopulmonary disease.
--- NOTE | 2023-02-19 13:23 | ECG_ITS ---
Test Reason : CHEST PAIN Blood Pressure : / mmHG Vent. Rate : 078 BPM Atrial Rate : 078 BPM P-R Int : 142 ms QRS Dur : 086 ms QT Int : 374 ms P-R-T Axes : 061 030 047 degrees QTc Int : 426 ms Normal sinus rhythm with sinus arrhythmia Normal ECG When compared with ECG of 24-JUN-2022 13:20, No significant change was found Referred By: Greta Burkett Electronically Signed By:PINA LAWRENCE
[2023-02-19 13:41] LABS: MANUAL DIFF FLAG NO
[2023-02-19 13:45] LABS: Basophils Percent Auto 0.4 % (0-2); Eosinophils Absolute Auto 0.1 X10*3/uL (0.0-0.4); Eosinophils Percent Auto 0.7 % (0-4); Hematocrit 37.8 % (37.0-47.0); Hemoglobin 12.2 g/dl (12.0-16.0); Imm Gran Abs Auto 0.02 X10*3/uL (0.00-0.03); Imm Gran Pct Auto 0.3 % (0.0-0.4); Lymphocytes Absolute Auto 1.6 X10*3/uL (1.2-4.9); Lymphocytes Percent Auto 22.1 % (20-40); Mean Corpuscular HGB Conc 32.3 g/dl (31.0-35.0); Mean Corpuscular Volume 83.6 fL (80.0-98.0); Mean Platelet Volume 10.8 fL (9.4-12.3); Monocytes Absolute Auto 0.4 X10*3/uL (0.1-1.2); Monocytes Percent Auto 6.1 % (2-11); Neutrophils Percent Auto 70.4 % (45-73); Platelet Count 232 X10*3/uL (160-400); Red Blood Count 4.52 X10*6/uL (4.20-5.50); Red Cell Distribution Width 14.3 % (11.0-16.0); White Blood Count 7.1 X10*3/uL (4.8-10.8)
[2023-02-19 13:55] VITALS: BP 102/70; PULSE 73; RESP 18; TEMP 36.8; O2SAT 99; BMI 32.3
--- NOTE | 2023-02-19 13:55 | ED.GENADULT ---
HPI - General Adult General Chief complaint: Chest Pain Stated complaint: Chest pain/L arm pain Related Data Home Medications Medication Instructions Recorded Confirmed apixaban 5 mg tablet (Eliquis) 5 mg PO BID 05/11/22 05/11/22 ferrous sulfate 324 mg (65 mg 324 mg PO DAILY 05/11/22 05/11/22 iron) tablet,delayed release fluticasone propionate 230 2 puff inhalation BID 05/11/22 05/11/22 mcg-salmeterol 21 mcg/actuation HFA inhaler (Advair HFA) meclizine 25 mg tablet 25 mg PO TID PRN dizziness 05/11/22 05/11/22 metoprolol succinate 50 mg 50 mg PO DAILY 05/11/22 05/11/22 tablet,extended release 24 hr omeprazole 40 mg capsule,delayed 40 mg PO DAILY 05/11/22 05/11/22 release Previous Rx's Medication Instructions Recorded lorazepam 0.5 mg tablet (Ativan) 0.5 mg PO BID PRN anxiety 4 days 09/08/21 #8 tabs ondansetron 4 mg disintegrating 4 mg PO Q8H PRN nausea and 11/05/21 tablet vomiting #7 tabs sucralfate 1 gram tablet (Carafate) 1 g PO BID #30 tabs 11/05/21 erythromycin 5 mg/gram (0.5 %) eye 0.5 inch ophthalmic (eye) BID 7 11/14/21 ointment days #3.5 grams pantoprazole 40 mg tablet,delayed 40 mg PO DAILY #14 tabs 05/17/22 release (Protonix) Allergies Allergy/AdvReac Type Severity Reaction Status Date / Time cephalexin Allergy Intermediate Chest Pain Verified 06/24/22 13:35 vancomycin Allergy Swelling Verified 06/24/22 13:35 [facility] Past Medical History Medical History Afib Anxiety Asthma IBS (irritable bowel syndrome) Migraine PFO (patent foramen ovale) Surgical History No pertinent past surgical history Family History Family History Father Stomach cancer Mother DM (diabetes mellitus) Cancer HTN (hypertension) Hypercholesteremia Social History Social History Household Members: Family Alcohol intake: never Patient Tobacco Use Status: Former Tobacco user Advance Directives: No Current occupational status: unemployed Physical Exam ED Vital Signs: Vital Signs - 24 hr 02/19/23 13:55 Temperature 98.2 F Pulse Rate 73 Respiratory Rate 18 Blood Pressure 102/70 Pulse Oximetry 99 Oxygen Delivery Method Room Air BMI result Body Mass Index 32.3 Course Course Course Narrative: This is a rapid medical exam: Additional HPI, ROS, PE not included below will be deferred to primary provider. Patient is a 27-year-old female with history of afib, PFO, migraines, and IBS presenting to the emergency department with complaint of 4/10 chest pain radiating down left arm for the past 3-4 days. She is not anticoagulated. Complains of associated lightheadedness. Plan: EKG, CXR, labs Medical Decision Making Lab Data 02/19/23 13:32 02/19/23 13:32 Labs: Lab Results 02/19/23 Range/Units 13:32 WBC 7.1 (4.8-10.8) X10*3/uL RBC 4.52 (4.20-5.50) X10*6/uL Hgb 12.2 (12.0-16.0) g/dl Hct 37.8 (37.0-47.0) % MCV 83.6 (80.0-98.0) fL MCH 27.0 (27.0-33.0) pg MCHC 32.3 (31.0-35.0) g/dl RDW 14.3 (11.0-16.0) % Plt Count 232 (160-400) X10*3/uL MPV 10.8 (9.4-12.3) fL Immature Gran % (Auto) 0.3 (0.0-0.4) % Neut % (Auto) 70.4 (45-73) % Lymph % (Auto) 22.1 (20-40) % [place] % (Auto) 6.1 (2-11) % Eos % (Auto) 0.7 (0-4) % Baso % (Auto) 0.4 (0-2) % Lymph # (Auto) 1.6 (1.2-4.9) X10*3/uL [place] # (Auto) 0.4 (0.1-1.2) X10*3/uL Eos # (Auto) 0.1 (0.0-0.4) X10*3/uL Baso # (Auto) 0.0 (0.0-0.2) X10*3/uL Abs Immat Gran (auto) 0.02 (0.00-0.03) X10*3/uL Absolute Neuts (auto) 5.0 (2.0-8.3) x10*3/uL Absolute Nucleated RBC 0.000 (0.0-0.012) X10*3/uL Nucleated RBC % (auto) 0.0 (0.0-0.2) /100WBC Sodium 140 (135-145) mmol/L Potassium 4.3 (3.3-5.1) mmol/L Chloride 108 (96-108) mmol/L Carbon Dioxide 24 (22-29) mmol/L Anion Gap 12 (12-20) BUN 12 (9-16) mg/dL Creatinine 0.74 (0.5-1.4) mg/dL Estim Creat Clear Calc 120.7 Estimated GFR > 60 Random Glucose 92 (60-115) mg/dL Calcium 9.4 (8.4-10.2) mg/dL Troponin I High Sens < 2.7 (<3.5-17.0) ng/L Beta HCG, Quant < 2 mIU/mL Discharge Plan Discharge Clinical Impression: Chest pain Patient Disposition: Left W/O Completing Treatment Prescriptions: No Action lorazepam [Ativan] 0.5 mg tablet 0.5 mg PO BID PRN (Reason: anxiety) 4 Days Qty: 8 0RF sucralfate [Carafate] 1 gram tablet 1 g PO BID Qty: 30 0RF ondansetron 4 mg tablet,disintegrating 4 mg PO Q8H PRN (Reason: nausea and vomiting) Qty: 7 0RF erythromycin 5 mg/gram (0.5 %) ointment 0.5 inch ophthalmic (eye) BID 7 Days Qty: 3.5 0RF pantoprazole [Protonix] 40 mg tablet,delayed release (DR/EC) 40 mg PO DAILY Qty: 14 0RF metoprolol succinate 50 mg tablet extended release 24 hr 50 mg PO DAILY omeprazole 40 mg capsule,delayed release(DR/EC) 40 mg PO DAILY meclizine 25 mg tablet 25 mg PO TID PRN (Reason: dizziness) ferrous sulfate 324 mg (65 mg iron) tablet,delayed release (DR/EC) 324 mg PO DAILY Eliquis 5 mg tablet 5 mg PO BID Advair HFA 230-21 mcg/actuation HFA aerosol inhaler 2 puff inhalation BID Discharge Date/Time: 02/19/23 14:58
[2023-02-19 14:05] LABS: Anion Gap 12 (12-20); Blood Urea Nitrogen 12 mg/dL (9-16); Calcium 9.4 mg/dL (8.4-10.2); Carbon Dioxide 24 mmol/L (22-29); Chloride 108 mmol/L (96-108); Creatinine Clr Calc Pharmacy 120.7; Estimated Glomerular Filt Rate > 60; Glucose Random 92 mg/dL (60-115); Potassium 4.3 mmol/L (3.3-5.1); Sodium 140 mmol/L (135-145)
[2023-02-19 14:09] LABS: HCG Quantitative < 2 mIU/mL; Troponin-I High Sensitivity < 2.7 ng/L (<3.5-17.0)
== END 2023-02-19 14:58 | disposition left against medical advice (07) ==
PROVIDERS: Registered Nurse Emergency; Emergency Provider Emergency Medicine; PCP Nurse Practitioner Family
DX: R07.89 Other chest pain (principal); M79.602 Pain in left arm; Z79.899 Other long term (current) drug therapy
CPT/HCPCS: 36415; 71046; 80048; 84484; 84702; 85025; 93005; 99283

== ENCOUNTER → 2023-02-19 13:23 | Outpatient (BNV) | payer OTHER, SELFPAY | PROVIDERS: Emergency Provider Emergency Medicine; PCP Nurse Practitioner Family; Visit Provider Internal Medicine | DX: R07.9 Chest pain, unspecified (principal) | CPT/HCPCS: 93010 ==

== ENCOUNTER 2023-02-20 11:17 | Emergency (ER) | payer OTHER, SELFPAY ==
--- NOTE | 2023-02-20 11:27 | ECG_ITS ---
Test Reason : CHEST PAIN Blood Pressure : / mmHG Vent. Rate : 058 BPM Atrial Rate : 058 BPM P-R Int : 144 ms QRS Dur : 088 ms QT Int : 422 ms P-R-T Axes : 060 032 041 degrees QTc Int : 414 ms Sinus bradycardia Otherwise normal ECG When compared with ECG of 19-FEB-2023 13:29, No significant change was found Referred By: Verona Helton Electronically Signed By:PINA LAWRENCE
[2023-02-20 12:08] VITALS: BP 107/70; PULSE 74; RESP 18; TEMP 37; O2SAT 100; BMI 32.3
--- NOTE | 2023-02-20 12:18 | ED.CHESTPAIN ---
HPI - Chest Pain General Chief Complaint: Chest Pain Stated Complaint: Chest pain Time Seen by Provider: 02/20/23 21:32 Source: patient Mode of arrival: ambulatory Limitations: no limitations History of Present Illness HPI narrative: Patient comes to the emergency room complaining of 4 days of chest pain radiating towards the left arm. This time, patient is asymptomatic. Patient states that sometimes she feels her heart racing. Patient denies any syncopal or or new syncopal episodes. Patient states that she has history of atrial fibrillation. Patient was taken off Eliquis approximately 8 months ago because the Eliquis med her menstrual periods very heavy to the point that she needed blood transfusions. Related Data Home Medications Medication Instructions Recorded Confirmed apixaban 5 mg tablet (Eliquis) 5 mg PO BID 05/11/22 05/11/22 ferrous sulfate 324 mg (65 mg 324 mg PO DAILY 05/11/22 05/11/22 iron) tablet,delayed release fluticasone propionate 230 2 puff inhalation BID 05/11/22 05/11/22 mcg-salmeterol 21 mcg/actuation HFA inhaler (Advair HFA) meclizine 25 mg tablet 25 mg PO TID PRN dizziness 05/11/22 05/11/22 metoprolol succinate 50 mg 50 mg PO DAILY 05/11/22 05/11/22 tablet,extended release 24 hr omeprazole 40 mg capsule,delayed 40 mg PO DAILY 05/11/22 05/11/22 release Previous Rx's Medication Instructions Recorded lorazepam 0.5 mg tablet (Ativan) 0.5 mg PO BID PRN anxiety 4 days 09/08/21 #8 tabs ondansetron 4 mg disintegrating 4 mg PO Q8H PRN nausea and 11/05/21 tablet vomiting #7 tabs sucralfate 1 gram tablet (Carafate) 1 g PO BID #30 tabs 11/05/21 erythromycin 5 mg/gram (0.5 %) eye 0.5 inch ophthalmic (eye) BID 7 11/14/21 ointment days #3.5 grams pantoprazole 40 mg tablet,delayed 40 mg PO DAILY #14 tabs 05/17/22 release (Protonix) Allergies Allergy/AdvReac Type Severity Reaction Status Date / Time cephalexin Allergy Intermediate Chest Pain Verified 06/24/22 13:35 vancomycin Allergy Swelling Verified 06/24/22 13:35 Review of Systems Review of Systems: Constitutional : No Weight loss, No Fever, No Chills, No Night Sweats, No Fatigue, No Malaise ENT/Mouth : No Hearing loss, No Ear Pain, No Nasal Congestion, No Sinus Pain, No Hoarseness, No sore throat, No Rhinorrhea, No Swallowing Difficulty Eyes: No Eye Pain, No Swelling, No Redness, No Foreign Body, No Discharge, No Vision Changes Cardiovascular : Complaining of chest pain on the left side of the chest. Intermittent palpitations, No SOB, No Dyspnea on Exertion, No Orthopnea, No Edema, Respiratory : No Cough, No Sputum, No Wheezing, No Smoke Exposure, No Dyspnea Gastrointestinal : No Nausea, No Vomiting, No Diarrhea, No Constipation, No abdominal Pain, No Hematochezia, No Melena Genitourinary : no irregular bleeding, No Dysuria, No Urinary Frequency, No Hematuria, No Urinary Incontinence, No Urgency, No Flank Pain, No Urinary Flow Changes, No Hesitancy Musculoskeletal : No joint pain, No Myalgias, No Joint Swelling Skin : No Skin Lesions, No rash Neuro : No Weakness, No Numbness, No Paresthesias, No Loss of Consciousness, No Dizziness, No Headache Psych : No Anxiety/Panic, No Depression, No SI/HI/AH/VH, No Social Issues, Heme/Lymph: No Bruising, No Bleeding,No Lymphadenopathy Endocrine : No Polyuria, No Polydipsia, No Temperature Intolerance PMFSH Past Medical History Medical History Migraine IBS (irritable bowel syndrome) Afib Anxiety PFO (patent foramen ovale) Asthma Surgical History No pertinent past surgical history Family History Family History Father Stomach cancer Mother DM (diabetes mellitus) Cancer HTN (hypertension) Hypercholesteremia Social History Social History Household Members: Family Alcohol intake: never Patient Tobacco Use Status: Former Tobacco user Advance Directives: Yes Advance Directives on File: No Current occupational status: unemployed Physical Exam Vital Signs: Vital Signs: Last Vital Signs Temp 98.5 F 02/20/23 19:30 Pulse 63 02/20/23 21:37 Resp 16 02/20/23 21:37 BP 119/60 02/20/23 21:37 Pulse Ox 100 02/20/23 21:37 O2 Del Method Room Air 02/20/23 21:37 BMI result Body Mass Index 32.3 Const: Other: Appearance: Alert. Oriented X3. No acute distress. Eyes: Pupils equal, round and reactive to light. ENT: Pharynx normal. Neck: Normal inspection. Neck supple. No lymph nodes noted. No crepitus CVS: Normal heart rate and rhythm. Pulses normal. Normal S1 and S2 Respiratory: No respiratory distress. Breath sounds normal. No Wheezing. No rales Abdomen: Soft and nontender. No rigidity. No distention. Skin: Skin warm and dry. Normal skin color. Normal skin turgor. Extremities: No lower extremity edema. No Lacerations. No Rash Neuro: Oriented X 3. No motor deficit. No sensory deficit. Moving all extremities. No slurred speech. CN 2 through 12 grossly intact Psych: calm, cooperative, normal affect Course Course Course Narrative: This is an RME: Additional HPI, ROS, PE not included below will be deferred to primary provider. This is a 27-year-old female, with history of atrial fibrillation, presenting to the emergency department with complaints of chest pain x4 days. She is not on anticoagulants. She states that she has had intermittent chest pain, states that the pain is sharp and radiates to her back. She has had some dizziness lightheadedness shortness of breath with exertion, no nausea or vomiting, no diarrhea, or urinary symptoms. She was seen in the emergency room yesterday but left without treatment. Vital signs within normal limits. Plan: Repeat labs, EKG, chest x-ray yesterday was negative. Further ER evaluation needed. Medical Decision Making Medical Decision Making MDM Narrative: My interpretation EKG: Normal sinus rhythm, heart rate 58, no ST segment depression or elevation, no T-wave inversion, QTC 414 -my interpretation of chest x-ray from yesterday, no acute pulmonary disease -my interpretation of labs, normal hematology, chemistry, troponin x2 , 24 hours apart negative -wells score for pulmonary embolism is 0 -patient has been having chest pain for 4 days, patient was seen here yesterday but left before being seen. Sets of troponin negative. Patient has been symptomatic for 4 days, reassuring that LFTs are negative. -discussed with the patient that it is possible that he may have intermittent atrial fibrillation. Versus palpitations from her diagnosed anxiety. Differential Diagnosis Differential Diagnoses: The differential diagnosis associated with the presentation includes (Atrial fibrillation, anxiety, musculoskeletal chest pain) Admission/Observation Consideration of admission/observation: Escalation of care including admission/observation considered (Given patient's history, admission was being considered) Lab Data MDM Lab Attestation statement: I reviewed the patient's lab results. 02/20/23 14:55 02/20/23 14:55 Labs: Lab Results 02/20/23 Range/Units 14:55 WBC 8.7 (4.8-10.8) X10*3/uL RBC 4.48 (4.20-5.50) X10*6/uL Hgb 11.9 L (12.0-16.0) g/dl Hct 37.3 (37.0-47.0) % MCV 83.3 (80.0-98.0) fL MCH 26.6 L (27.0-33.0) pg MCHC 31.9 (31.0-35.0) g/dl RDW 14.2 (11.0-16.0) % Plt Count 240 (160-400) X10*3/uL MPV 10.5 (9.4-12.3) fL Immature Gran % (Auto) 0.2 (0.0-0.4) % Neut % (Auto) 68.7 (45-73) % Lymph % (Auto) 21.5 (20-40) % [place] % (Auto) 8.3 (2-11) % Eos % (Auto) 1.0 (0-4) % Baso % (Auto) 0.3 (0-2) % Lymph # (Auto) 1.9 (1.2-4.9) X10*3/uL [place] # (Auto) 0.7 (0.1-1.2) X10*3/uL Eos # (Auto) 0.1 (0.0-0.4) X10*3/uL Baso # (Auto) 0.0 (0.0-0.2) X10*3/uL Abs Immat Gran (auto) 0.02 (0.00-0.03) X10*3/uL Absolute Neuts (auto) 5.9 (2.0-8.3) x10*3/uL Absolute Nucleated RBC 0.000 (0.0-0.012) X10*3/uL Nucleated RBC % (auto) 0.0 (0.0-0.2) /100WBC Sodium 140 (135-145) mmol/L Potassium 4.3 (3.3-5.1) mmol/L Chloride 108 (96-108) mmol/L Carbon Dioxide 27 (22-29) mmol/L Anion Gap 9 L (12-20) BUN 11 (9-16) mg/dL Creatinine 0.74 (0.5-1.4) mg/dL Estim Creat Clear Calc 120.6 Estimated GFR > 60 Random Glucose 87 (60-115) mg/dL Calcium 9.7 (8.4-10.2) mg/dL Total Bilirubin 0.3 (0.0-1.0) mg/dL Direct Bilirubin 0.1 (0.0-0.5) mg/dL AST 19 (5-31) U/L ALT 10 (0-31) U/L Alkaline Phosphatase 79 (39-117) U/L Troponin I High Sens < 2.7 (<3.5-17.0) ng/L Total Protein 7.5 (6.5-8.0) g/dL Albumin 4.2 (3.5-5.0) g/dL Influenza Type A (PCR) NEGATIVE (Negative) Influenza Type B (PCR) NEGATIVE (Negative) RSV RNA Qual (PCR) NEGATIVE (Negative) SARS-CoV-2 RNA (RT-PCR) NEGATIVE (Negative) Critical Care Time Critical Care Time Critical Care Time: Yes Total Critical Care Time: 45 Attestation: I have personally provided critical care time. Time includes review of lab data, radiology results, discussion with consultants, and monitoring for potential decompensation. Intervention performed as documented. Discharge Plan Discharge Clinical Impression: Atypical chest pain Patient Disposition: Home, Self-Care Instructions: Chest Pain (ED) Additional Instructions: Please follow-up with your primary care physician tomorrow. If you have any worsening or new symptoms, please return to the emergency room or call 911 Prescriptions: No Action lorazepam [Ativan] 0.5 mg tablet 0.5 mg PO BID PRN (Reason: anxiety) 4 Days Qty: 8 0RF sucralfate [Carafate] 1 gram tablet 1 g PO BID Qty: 30 0RF ondansetron 4 mg tablet,disintegrating 4 mg PO Q8H PRN (Reason: nausea and vomiting) Qty: 7 0RF erythromycin 5 mg/gram (0.5 %) ointment 0.5 inch ophthalmic (eye) BID 7 Days Qty: 3.5 0RF pantoprazole [Protonix] 40 mg tablet,delayed release (DR/EC) 40 mg PO DAILY Qty: 14 0RF metoprolol succinate 50 mg tablet extended release 24 hr 50 mg PO DAILY omeprazole 40 mg capsule,delayed release(DR/EC) 40 mg PO DAILY meclizine 25 mg tablet 25 mg PO TID PRN (Reason: dizziness) ferrous sulfate 324 mg (65 mg iron) tablet,delayed release (DR/EC) 324 mg PO DAILY Eliquis 5 mg tablet 5 mg PO BID Advair HFA 230-21 mcg/actuation HFA aerosol inhaler 2 puff inhalation BID Referrals: Marty Oneill MD [Physician] - 02/21/23
[2023-02-20 15:00] LABS: MANUAL DIFF FLAG NO
[2023-02-20 15:12] LABS: Basophils Percent Auto 0.3 % (0-2); Eosinophils Absolute Auto 0.1 X10*3/uL (0.0-0.4); Hematocrit 37.3 % (37.0-47.0); Hemoglobin 11.9 g/dl (12.0-16.0); Imm Gran Abs Auto 0.02 X10*3/uL (0.00-0.03); Imm Gran Pct Auto 0.2 % (0.0-0.4); Lymphocytes Absolute Auto 1.9 X10*3/uL (1.2-4.9); Lymphocytes Percent Auto 21.5 % (20-40); Mean Corpuscular HGB Conc 31.9 g/dl (31.0-35.0); Mean Corpuscular Hemoglobin 26.6 pg (27.0-33.0); Mean Corpuscular Volume 83.3 fL (80.0-98.0); Mean Platelet Volume 10.5 fL (9.4-12.3); Monocytes Absolute Auto 0.7 X10*3/uL (0.1-1.2); Monocytes Percent Auto 8.3 % (2-11); Neutrophils Absolute Auto 5.9 x10*3/uL (2.0-8.3); Neutrophils Percent Auto 68.7 % (45-73); Platelet Count 240 X10*3/uL (160-400); Red Blood Count 4.48 X10*6/uL (4.20-5.50); Red Cell Distribution Width 14.2 % (11.0-16.0); White Blood Count 8.7 X10*3/uL (4.8-10.8)
[2023-02-20 15:27] LABS: Alanine Aminotransferase 10 U/L (0-31); Albumin Level 4.2 g/dL (3.5-5.0); Alkaline Phosphatase 79 U/L (39-117); Anion Gap 9 (12-20); Aspartate Amino Transferase 19 U/L (5-31); Bilirubin Direct 0.1 mg/dL (0.0-0.5); Bilirubin Total 0.3 mg/dL (0.0-1.0); Blood Urea Nitrogen 11 mg/dL (9-16); Calcium 9.7 mg/dL (8.4-10.2); Carbon Dioxide 27 mmol/L (22-29); Chloride 108 mmol/L (96-108); Creatinine Clr Calc Pharmacy 120.6; Estimated Glomerular Filt Rate > 60; Glucose Random 87 mg/dL (60-115); Potassium 4.3 mmol/L (3.3-5.1); Sodium 140 mmol/L (135-145); Total Protein 7.5 g/dL (6.5-8.0)
[2023-02-20 15:38] LABS: Influenza A PCR NEGATIVE (Negative); Influenza B PCR NEGATIVE (Negative); Resp Syncy Virus RNA Qual PCR NEGATIVE (Negative); SARS COV2 PCR INHOUSE NEGATIVE (Negative)
[2023-02-20 15:40] LABS: Troponin-I High Sensitivity < 2.7 ng/L (<3.5-17.0)
[2023-02-20 19:30] VITALS: BP 115/74; PULSE 72; RESP 16; TEMP 36.9; O2SAT 100
[2023-02-20 21:37] VITALS: BP 119/60; PULSE 63; RESP 16; O2SAT 100
[2023-02-20 22:01] VITALS: BP 103/66; PULSE 60; RESP 16; O2SAT 100
== END 2023-02-20 22:06 | disposition home or self-care (01) ==
PROVIDERS: Physician Assistant Medical; Emergency Provider Emergency Medicine; PCP Nurse Practitioner Family
DX: R07.89 Other chest pain (principal); Z20.822 Contact with and (suspected) exposure to COVID-19; Z20.828 Contact with and (suspected) exposure to other viral communicable diseases; I48.91 Unspecified atrial fibrillation; Z79.01 Long term (current) use of anticoagulants; Z79.899 Other long term (current) drug therapy; Z87.891 Personal history of nicotine dependence
CPT/HCPCS: 0241U; 80048; 80076; 84484; 85025; 93005; 99283; 99285

== ENCOUNTER → 2023-02-20 11:27 | Outpatient (BNV) | payer OTHER, SELFPAY | PROVIDERS: Emergency Provider Emergency Medicine; PCP Nurse Practitioner Family; Visit Provider Internal Medicine | DX: R00.1 Bradycardia, unspecified (principal) | CPT/HCPCS: 93010 ==